=== PATIENT | female | born 1990 | race Caucasian/White ===

== ENCOUNTER 2017-02-21 19:10 | Emergency (ER) | payer MEDICAID ==
[2017-02-21] MEDS ORDERED: HYDROMORPHONE HCL INJ/PF 2 MG/ML AMPULE IM ONE (20:31)
--- NOTE | 2017-02-21 20:36 | ER Document Report ---
HPI - HPI Patient complains to provider of: Low back pain Onset: Other - Chronic, worse for the past week Onset/Duration: Worse Quality of pain: Achy Pain Level: 4 Context: Patient states she has a history of sarcoidosis with arthritic pain. Patient states that over the past week she has had a flareup of her low back pain that radiates to bilateral hips and into her legs. Patient denies any fever, urinary retention or incontinence. Patient states she did see her primary doctor and was told that there was some red blood cells in her urine although she did not have any signs concerning for infection. Patient states that typically with flareup such as that she will get a shot of the pain medication and a steroid medication and follow-up with her software testing specialist. Patient states that she has been advised not to take any additional steroids as she is currently on Acthar gel. Associated Symptoms: Other - Back pain that radiates to her legs. denies: Fever , Headache, Vomiting Exacerbated by: Movement Relieved by: Denies Similar symptoms previously: Yes Recently seen / treated by doctor: No - ROS ROS below otherwise negative: Yes Systems Reviewed and Negative: Yes All other systems reviewed and negative - CONSTITUTIONAL Constitutional: DENIES: Fever, Chills - NEURO Neurology: DENIES: Headache, Weakness - GASTROINTESTINAL Gastrointestinal: DENIES: Nausea, Patient vomiting - URINARY Urinary: DENIES: Dysuria, Urgency, Frequency - REPRODUCTIVE Reproductive: DENIES: : - MUSCULOSKELETAL Musculoskeletal: REPORTS: Back Pain. DENIES: Neck Pain - DERM Skin Color: Normal Skin Problems: None Past Medical History - General Information source: Patient - Social History Smoking Status: Current Every Day Smoker Chew tobacco use (# tins/day): No Frequency of alcohol use: None Drug Abuse: None Occupation: None Lives with: Family Family History: Arthritis, CAD, DM, Hyperlipidemia, Hypertension, Thyroid Disfunction Patient has suicidal ideation: No Patient has homicidal ideation: No - Medical History Medical History: Other - Sarcoidosis - Past Medical History Cardiac Medical History: Reports: Hx Hypertension Pulmonary Medical History: Neurological Medical History: Reports: Hx Migraine Renal/ Medical History: Reports: Hx Ovarian Cysts. Denies: Hx Peritoneal Dialysis GI Medical History: Denies: Hx Hepatitis Musculoskeltal Medical History: Reports Hx Fibromyalgia, Reports Hx Musculoskeletal Trauma Psychiatric Medical History: Reports: Hx Anxiety, Hx Depression Infectious Medical History: Denies: Hx Hepatitis Past Surgical History: Reports: Hx Appendectomy, Hx Section, Hx Cholecystectomy, Hx Orthopedic Surgery - right foot, Hx Tonsillectomy - Immunizations Immunizations up to date: Yes Hx Diphtheria, Pertussis, Tetanus Vaccination: Yes Vertical Provider Document - CONSTITUTIONAL Agree With Documented VS: Yes Exam Limitations: No Limitations General Appearance: WD/WN, No Apparent Distress - INFECTION CONTROL TRAVEL OUTSIDE OF THE [place] IN LAST 30 DAYS: No - HEENT HEENT: Atraumatic, Normocephalic - NECK Neck: Normal Inspection - RESPIRATORY Respiratory: Breath Sounds Normal, No Respiratory Distress O2 Sat by Pulse Oximetry: 98 - CARDIOVASCULAR Cardiovascular: Regular Rate, Regular Rhythm Notes: 2+ edema to bilateral lower extremities - GI/ABDOMEN Gastrointestinal: Abdomen Soft, Abdomen Non-Tender - BACK Back: CVA Tenderness-Right, CVA Tenderness-Left Notes: Lower lumbar paraspinal tenderness - MUSCULOSKELETAL/EXTREMETIES Musculoskeletal/Extremeties: ABUNDIO, FROM Notes: Normal gait - NEURO Level of Consciousness: Awake, Alert, Appropriate Motor/Sensory: No Motor Deficit, No Sensory Deficit - DERM Integumentary: Warm, Dry Course - Re-evaluation Re-evalutation: 02/21/17 21:58 Pt reports modest improvement of her back pain symptoms. Patient encouraged to follow-up with her primary doctor or her software testing specialist for chronic pain management. Discussed worsening symptoms that patient should return immediately for. Patient verbalized understanding in agrees with plan of care. Patient with all amount of red blood cells on urinalysis. Patient denies any urinary symptoms or complaints. Patient states that her primary doctor is aware that she had red blood cells on her urinalysis and they did send it for culture. Patient advised that she may need to follow-up with a photo booth operator for further evaluation but that her primary doctor could make that consultation for her. - Vital Signs Vital signs: Temp Pulse Resp BP Pulse Ox 98.8 F 107 H 18 105/83 98 02/21/17 19:59 02/21/17 19:59 02/21/17 19:59 02/21/17 19:59 02/21/17 19:59 Discharge - Discharge Clinical Impression: Hx of sarcoidosis Low back pain Qualifiers: Chronicity: chronic Back pain laterality: unspecified Sciatica presence: unspecified whether sciatica present Qualified Code(s): M54.5 - Low back pain Condition: Stable Disposition: HOME, SELF-CARE Instructions: Acetaminophen, Ice Packs ([facility]), Low Back Pain ([facility]), Oral Narcotic Medication ([facility]), Warm Packs ([facility]) Additional Instructions: Return immediately for any new or worsening symptoms Followup with your primary care provider, call tomorrow to make a followup appointment Follow-up with your software testing specialist tomorrow for recheck Prescriptions: Oxycodone HCl/Acetaminophen [Percocet 5-325 mg Tablet] 1 tab PO ASDIR PRN #12 tablet PRN Reason:
[2017-02-21 21:29] LABS: APPEARANCE,URINE CLEAR; BILIRUBIN,URINE NEGATIVE (NEGATIVE); GLUCOSE, URINE NEGATIVE (NEGATIVE); KETONES,URINE NEGATIVE (NEGATIVE); LEUKOCYTE ESTERASE,URINE NEGATIVE (NEGATIVE); NITRITE,URINE NEGATIVE (NEGATIVE); PROTEIN,URINE NEGATIVE (NEGATIVE); URINE SPECIFIC GRAVITY 1.012; UROBILINOGEN,URINE NEGATIVE mg/dL (<2.0)
[2017-02-21 22:24] VITALS: BP 131/87
== END 2017-02-21 22:22 | disposition home or self-care (01) ==
LOC: ER 19:10
DX: M54.5 Low back pain (principal); D86.9 Sarcoidosis, unspecified; I10 Essential (primary) hypertension; R60.0 Localized edema; F17.200 Nicotine dependence, unspecified, uncomplicated; Z79.899 Other long term (current) drug therapy
CPT/HCPCS: 99283; 96372; 87086; 81001; J1170

== ENCOUNTER 2017-02-25 15:58 | Emergency (ER) | payer MEDICAID ==
[2017-02-25] MEDS ORDERED: NORMAL SALINE 1000 ML 1,000 ML IV ONE (16:18)
[2017-02-25] MEDS ORDERED: KETOROLAC TROMETHAMINE INJ/PF 30 MG/1 ML SDV IV ONE (16:18)
--- NOTE | 2017-02-25 16:19 | ER Document Report ---
ED Medical Screen (RME) - General Chief Complaint: Urinary Problem Stated Complaint: PAINFUL URINATION Time Seen by Provider: 02/25/17 16:17 Mode of Arrival: Wheelchair Information source: Patient TRAVEL OUTSIDE OF THE [place] IN LAST 30 DAYS: No - HPI Patient complains to provider of: L flank pain/dysuria Onset: Other - Pt. with c/o L flank pain and dysuria for the past 1-2 days. - Related Data Allergies/Adverse Reactions: Neuromuscular Blockers, Steroidal [Steroidal Neuromuscular Blockers] Allergy ( Severe, Verified 02/21/17 19:58) esophageal/stomach ulcers latex [Latex] Allergy (Intermediate, Verified 02/21/17 19:58) redness/blisters Home Medications: Current Home Medications Asenapine Maleate [Saphris] 10 mg SL TID 02/25/17 [History] Prazosin HCl 4 mg PO QHS 02/25/17 [History] Propranolol HCl [Propranolol HCl ER] 120 mg PO DAILY 02/25/17 [History] Venlafaxine HCl [Effexor Xr] 175 mg PO DAILY 02/25/17 [History] Past Medical History - Past Medical History Cardiac Medical History: Reports: Hx Hypertension Pulmonary Medical History: Neurological Medical History: Reports: Hx Migraine Renal/ Medical History: Reports: Hx Ovarian Cysts. Denies: Hx Peritoneal Dialysis GI Medical History: Denies: Hx Hepatitis Musculoskeltal Medical History: Reports Hx Fibromyalgia, Reports Hx Musculoskeletal Trauma Psychiatric Medical History: Reports: Hx Anxiety, Hx Depression Infectious Medical History: Denies: Hx Hepatitis Past Surgical History: Reports: Hx Appendectomy, Hx Section, Hx Cholecystectomy, Hx Orthopedic Surgery - right foot, Hx Tonsillectomy - Immunizations Immunizations up to date: Yes Hx Diphtheria, Pertussis, Tetanus Vaccination: Yes
[2017-02-25 17:12] LABS: ABSOLUTE EOSINOPHILS # (AUTO) 0.3 10^3/uL (0.0-0.6); ABSOLUTE LYMPHOCYTES (AUTO) 2.7 10^3/uL (0.5-4.7); ABSOLUTE MONOCYTES (AUTO) 0.4 10^3/uL (0.1-1.4); ABSOLUTE NEUT (AUTO) 4.8 10^3/uL (1.7-8.2); BASOPHILS % (AUTO) 0.4 % (0-2); EOSINOPHILS % (AUTO) 3.8 % (0-6); HEMATOCRIT 34.9 % (36.0-47.0); HEMOGLOBIN 11.4 g/dL (12.0-15.5); HGB HCT DIFFERENCE -0.7; LYMPHOCYTES % (AUTO) 32.7 % (13-45); MEAN CORPUSCULAR HEMOGLOBIN 26.7 pg (27.0-33.4); MEAN CORPUSCULAR HGB CONC 32.6 g/dL (32.0-36.0); MEAN CORPUSCULAR VOLUME 82 fl (80-97); MONOCYTES % (AUTO) 4.7 % (3-13); RED BLOOD COUNT 4.26 10^6/uL (3.72-5.28); RED CELL DISTRIBUTION WIDTH 17.1 % (11.5-14.0); SEGMENTED NEUTROPHILS % (AUTO) 58.4 % (42-78); WHITE BLOOD COUNT 8.3 10^3/uL (4.0-10.5)
[2017-02-25 17:16] LABS: APPEARANCE,URINE CLEAR; BILIRUBIN,URINE NEGATIVE (NEGATIVE); GLUCOSE, URINE NEGATIVE (NEGATIVE); KETONES,URINE NEGATIVE (NEGATIVE); LEUKOCYTE ESTERASE,URINE NEGATIVE (NEGATIVE); NITRITE,URINE POSITIVE (NEGATIVE); PROTEIN,URINE 30 mg/dL (NEGATIVE)
[2017-02-25 17:26] LABS: ALANINE AMINOTRANSFERASE 60 U/L (9-52); ALBUMIN 3.7 g/dL (3.5-5.0); ALKALINE PHOSPHATASE 93 U/L (38-126); ANION GAP 12 (5-19); ASPARTATE AMINO TRANSFERASE 31 U/L (14-36); BILIRUBIN,DIRECT 0.2 mg/dL (0.0-0.4); BILIRUBIN,TOTAL 0.3 mg/dL (0.2-1.3); BLOOD UREA NITROGEN 21 mg/dL (7-20); CARBON DIOXIDE 27 mmol/L (22-30); CHLORIDE 103 mmol/L (98-107); CREATININE RESULT 0.68 mg/dL (0.52-1.25); GLUCOSE 91 mg/dL (75-110); POTASSIUM 4.3 mmol/L (3.6-5.0); SODIUM 141.6 mmol/L (137-145); TOTAL PROTEIN 6.3 g/dL (6.3-8.2)
--- NOTE | 2017-02-25 18:07 | RADIOLOGY REPORT (SQ) ---
EXAM DESCRIPTION: CT LTD RENAL STONE PROTOCOL ON COMPLETED DATE/TIME: 02/25/2017 5:43 pm REASON FOR STUDY: L flank pain COMPARISON: None. TECHNIQUE: CT scan of the abdomen and pelvis performed without intravenous or oral contrast. Images reviewed with lung, soft tissue, and bone windows. Reconstructed coronal and sagittal MPR images revi ewed. All images stored on PACS. All CT scanners at this facility use dose modulation, iterative reconstruction, and/or weight based d osing when appropriate to reduce radiation dose to as low as reasonably achievable (ALARA). [facility]: Dose Right [facility]: CareDose [facility]: Dose Right [facility]: Teradose 4D [facility]: [employer] RADIATION DOSE: Up-to-date CT equipment and radiation dose reduction techniques were employed. CTDIv ol: 21.3 mGy. DLP: 1233 mGy-cm.mGy. LIMITATIONS: None. FINDINGS: LOWER CHEST: No significant findings. No nodules or infiltrates. NON-CONTRASTED LIVER, SPLEEN, ADRENALS: Evaluation limited by lack of IV contrast. No identified sign ificant masses. PANCREAS: No masses. No peripancreatic inflammatory changes. GALLBLADDER: Status post cholecystectomy RIGHT KIDNEY AND URETER: No suspicious masses. Assessment limited by lack of IV contrast. No signif icant calcifications. No hydronephrosis or hydroureter. LEFT KIDNEY AND URETER: No suspicious masses. Assessment limited by lack of IV contrast. No signifi cant calcifications. No hydronephrosis or hydroureter. AORTA AND RETROPERITONEUM: No aneurysm. No retroperitoneal masses or adenopathy. BOWEL AND PERITONEAL CAVITY: Multiple prominent mesenteric lymph nodes are identified and the possibi lity of a mesenteric adenitis should be considered. Other etiologies cannot be excluded. APPENDIX: Status post appendectomy PELVIS, BLADDER, AND ABDOMINAL WALL:No abnormal masses. No free fluid. Bladder normal. BONES: No significant findings. OTHER: No other significant finding. IMPRESSION: Multiple prominent mesenteric lymph nodes are identified and the possibility of a mesent cristina adenitis should be considered. Other etiologies cannot be excluded. Other findings as noted ab ove COMMENT: Quality ID # [id number]: Final reports with documentation of one or more dose reduction techniques (e.g., Automated exposure control, adjustment of the mA and/or kV according to patient size, use of iterative reconstruction technique) TECHNICAL DOCUMENTATION: JOB ID: [id number]- All Rights Reserved
[2017-02-25] MEDS ORDERED: HYDROCODONE/ACETAMINOPHEN 5-325 MG TABLET PO ONE (18:21)
[2017-02-25] MEDS ORDERED: SULFAMETHOXAZOLE/TRIMETHOPRIM 800-160 MG TABLET PO ONE (18:21)
--- NOTE | 2017-02-25 18:21 | ER Document Report ---
ED GI/ - General Mode of Arrival: Wheelchair Information source: Patient TRAVEL OUTSIDE OF THE [place] IN LAST 30 DAYS: No <SKY BHAKTA - Last Filed: 02/25/17 19:12> <KWAME TOM - Last Filed: 02/25/17 19:25> - General Chief Complaint: Urinary Problem Stated Complaint: PAINFUL URINATION Time Seen by Provider: 02/25/17 16:17 Notes: Patient is a 27 year old female with a history of Sarcoidosis presents to the emergency department complaining of multiple symptoms including back, hip and leg pain as well as painful urination. Patient states that she was last seen in the emergency department 02/21/2017, complaining of her leg, back and hip pain and was sent home diagnosed with a flare of her Sarcoidosis. Patient states that she now has painful urination, left flank pain and LLQ abdominal pain. Patient states that she has had a fever of 101.2 as well as vomiting. Patient denies any any diarrhea, sore throat, runny nose, or earaches. (SKY BHAKTA) - Related Data Allergies/Adverse Reactions: Neuromuscular Blockers, Steroidal [Steroidal Neuromuscular Blockers] Allergy ( Severe, Verified 02/21/17 19:58) esophageal/stomach ulcers latex [Latex] Allergy (Intermediate, Verified 02/21/17 19:58) redness/blisters Home Medications: Current Home Medications Asenapine Maleate [Saphris] 10 mg SL TID 02/25/17 [History] Baclofen [Baclofen 20 Mg Tablet] 20 mg PO TID 02/25/17 [History] Budesonide [Pulmicort 180 mcg Flexhaler] 180 mcg IN BID 02/25/17 [History] Esomeprazole Magnesium [Nexium] 40 mg PO BID 02/25/17 [History] Methotrexate Sodium [Methotrexate] 2.5 mg PO ASDIR 02/25/17 [History] Prazosin HCl 4 mg PO QHS 02/25/17 [History] Propranolol HCl [Propranolol HCl ER] 120 mg PO DAILY 02/25/17 [History] Venlafaxine HCl [Effexor Xr] 175 mg PO DAILY 02/25/17 [History] Past Medical History - General Information source: Patient - Social History Smoking Status: Never Smoker Family History: Arthritis, CAD, DM, Hyperlipidemia, Hypertension, Thyroid Disfunction Patient has suicidal ideation: No Patient has homicidal ideation: No - Past Medical History Cardiac Medical History: Reports: Hx Hypertension Pulmonary Medical History: Neurological Medical History: Reports: Hx Migraine Renal/ Medical History: Reports: Hx Ovarian Cysts. Denies: Hx Peritoneal Dialysis GI Medical History: Denies: Hx Hepatitis Musculoskeltal Medical History: Reports Hx Fibromyalgia, Reports Hx Musculoskeletal Trauma Psychiatric Medical History: Reports: Hx Anxiety, Hx Depression Infectious Medical History: Denies: Hx Hepatitis Past Surgical History: Reports: Hx Appendectomy, Hx Section, Hx Cholecystectomy, Hx Orthopedic Surgery - right foot, Hx Tonsillectomy - Immunizations Immunizations up to date: Yes Hx Diphtheria, Pertussis, Tetanus Vaccination: Yes <SKY BHAKTA - Last Filed: 02/25/17 19:12> Physical Exam <SKY BHAKTA - Last Filed: 02/25/17 19:12> <KWAME TOM - Last Filed: 02/25/17 19:25> - Notes Notes: GENERAL: Alert, interacts well. No acute distress. HEAD: Normocephalic, atraumatic. EYES: Pupils equal, round, and reactive to light. Extraocular movements intact. ENT: Oral mucosa moist, tongue midline. NECK: Full range of motion. Supple. Trachea midline. LUNGS: Clear to auscultation bilaterally, no wheezes, rales, or rhonchi. No respiratory distress. HEART: Regular rate and rhythm. No murmurs, gallops, or rubs. ABDOMEN: Soft, Suprapubic area tender to palpation. Non-distended. Bowel sounds present in all 4 quadrants. Obese. EXTREMITIES: Moves all 4 extremities spontaneously. No edema, radial and dorsalis pedis pulses 2/4 bilaterally. No cyanosis. NEUROLOGICAL: Alert and oriented x3. Normal speech. PSYCH: Normal affect, normal mood. SKIN: Warm, dry, normal turgor. No rashes or lesions noted. BACK: Left sided CVA tenderness to percussion. (SKY BHAKTA) Course - Laboratory Result Diagrams: 02/25/17 16:45 02/25/17 16:45 <SKY BHAKTA - Last Filed: 02/25/17 19:12> - Laboratory Result Diagrams: 02/25/17 16:45 02/25/17 16:45 <KWAME TOM - Last Filed: 02/25/17 19:25> - Re-evaluation Re-evalutation: 02/25/17 18:26 CBC shows mild anemia with hemoglobin 11.4, CMP grossly unremarkable, test negative, urinalysis shows small blood, positive nitrites but only 3 WBCs and 8 RBCs, this may actually represent false positive from the Pyridium that the patient is taking however it will be sent for culture, patient also has left flank pain associated with left CVA tenderness to percussion and fever, this is suspicious for pyelonephritis. CAT scan did not reveal any signs of hydronephrosis, perinephric stranding or obstructing stone. Patient will be treated with Bactrim. CT scan is possibly indicative of mesenteric adenitis however I feel the enlarged lymph nodes in the setting of a patient with known sarcoidosis likely has sarcoid instead causing these enlarged lymph nodes. ( KWAME TOM) - Laboratory Laboratory results interpreted by me: 02/25/17 02/25/17 02/25/17 16:45 16:45 16:45 Hgb 11.4 L Hct 34.9 L MCH 26.7 L RDW 17.1 H BUN 21 H ALT 60 H Urine Protein 30 H Urine Blood SMALL H Urine Nitrite POSITIVE H Urine Urobilinogen 4.0 H Discharge <SKY BHAKTA - Last Filed: 02/25/17 19:12> <KWAME TOM - Last Filed: 02/25/17 19:25> - Discharge Clinical Impression: Pyelonephritis, Hx of sarcoidosis Condition: Stable Disposition: HOME, SELF-CARE Additional Instructions: Pyelonephritis Your evaluation shows evidence of pyelonephritis. This is an infection in the kidney. Typical symptoms are fever, pain in the flank, pain on urination, and frequent urination. Many cases of pyelonephritis can be treated at home. Hospital care may be necessary for patients who are very ill, or elderly or . Pyelonephritis is treated with antibiotics. Be sure to take all the medication as prescribed. Drink plenty of liquids (about three quarts per day) . You may take acetaminophen for fever. You should feel significantly improved within two days. You should have a recheck of your urine in about one week to insure that the infection is gone. Return for a re-examination if your symptoms worsen in any way -- such as high fever, shaking chills, severe weakness or dizziness, severe pain, or inability to pass your urine. Prescriptions: Sulfamethoxazole/Trimethoprim [Bactrim Ds Tablet] 1 each PO BID #14 tablet Referrals: JOSELITO FLORIAN MD [ACTIVE STAFF] - Follow up as needed Scribe Attestation: 02/25/17 19:25 I personally performed the services described in the documentation, reviewed and edited the documentation which was dictated to the scribe in my presence, and it accurately records my words and actions. (KWAME TOM)
[2017-02-25 20:08] VITALS: BP 147/107
== END 2017-02-25 19:55 | disposition home or self-care (01) ==
LOC: ER 15:58
DX: N12 Tubulo-interstitial nephritis, not specified as acute or chronic (principal); D86.9 Sarcoidosis, unspecified; R50.9 Fever, unspecified; R11.10 Vomiting, unspecified; I10 Essential (primary) hypertension; Z91.040 Latex allergy status; Z90.49 Acquired absence of other specified parts of digestive tract
CPT/HCPCS: 99284; 96361; 96374; 36415; 87086; 85025; 81025; 80053; 81001; 76380; J1885; J3490; J7030

== ENCOUNTER 2017-04-06 19:02 | Emergency (ER) | payer MEDICAID ==
[2017-04-06] MEDS ORDERED: HYDROXYZINE PAMOATE 50 MG CAPSULE PO ONE (20:25)
[2017-04-06] MEDS ORDERED: MORPHINE SULFATE 10 MG/ML INJ IM ONE (21:04)
[2017-04-06] MEDS ORDERED: METHYLPREDNISOLONE ACETATE INJ 80 MG/1 ML VIAL IM PRN (21:04)
[2017-04-06] MEDS ORDERED: ONDANSETRON 4 MG TAB.RAPDIS PO ONE (21:04)
--- NOTE | 2017-04-06 21:08 | ER Document Report ---
ED General Pain - General Chief Complaint: Pain All Over Stated Complaint: BODY PAIN Time Seen by Provider: 04/06/17 21:04 Mode of Arrival: Ambulatory Information source: Patient Notes: 27 years old female with a history of sarcoidosis, has not been taking any medication in the recent past, presents with generalized body aches and pain and minor rash over the face and lower extremity. Recently she was treated for pneumonia, currently feeling better, has no cough shortness of breath or wheezing. Denies any fever chills or other constitutional symptoms. TRAVEL OUTSIDE OF THE [place] IN LAST 30 DAYS: No - Related Data Allergies/Adverse Reactions: Neuromuscular Blockers, Steroidal [Steroidal Neuromuscular Blockers] Allergy ( Severe, Verified 02/21/17 19:58) esophageal/stomach ulcers latex [Latex] Allergy (Intermediate, Verified 02/21/17 19:58) redness/blisters Past Medical History - General Information source: Patient - Social History Smoking Status: Unknown if Ever Smoked Family History: Arthritis, CAD, DM, Hyperlipidemia, Hypertension, Thyroid Disfunction, Other - Sarcoidosis Patient has suicidal ideation: No Patient has homicidal ideation: No - Past Medical History Cardiac Medical History: Reports: Hx Hypertension Pulmonary Medical History: Neurological Medical History: Reports: Hx Migraine Renal/ Medical History: Reports: Hx Ovarian Cysts. Denies: Hx Peritoneal Dialysis GI Medical History: Denies: Hx Hepatitis Musculoskeltal Medical History: Reports Hx Fibromyalgia, Reports Hx Musculoskeletal Trauma Psychiatric Medical History: Reports: Hx Anxiety, Hx Depression Infectious Medical History: Denies: Hx Hepatitis Past Surgical History: Reports: Hx Appendectomy, Hx Section, Hx Cholecystectomy, Hx Orthopedic Surgery - right foot, Hx Tonsillectomy - Immunizations Immunizations up to date: Yes Hx Diphtheria, Pertussis, Tetanus Vaccination: Yes Review of Systems - Review of Systems Notes: REVIEW OF SYSTEMS: CONSTITUTIONAL : Denies fever, chills, or sweats. Denies recent illness. EENT: Denies eye, ear, throat, or mouth pain or symptoms. Denies nasal or sinus congestion or discharge. Denies throat, tongue, or mouth swelling or difficulty swallowing. CARDIOVASCULAR: Denies chest pain. Denies palpitations or racing or irregular heart beat. Denies ankle edema. RESPIRATORY: Denies cough, cold, or chest congestion. Denies shortness of breath, difficulty breathing, or wheezing. GASTROINTESTINAL: Denies abdominal pain or distention. Denies nausea, vomiting , or diarrhea. Denies blood in vomitus, stools, or per rectum. Denies black, tarry stools. Denies constipation. GENITOURINARY: Denies difficulty urinating, painful urination, burning, frequency, blood in urine, or discharge. FEMALE GENITOURINARY: Denies vaginal bleeding, heavy or abnormal periods, irregular periods. Denies vaginal discharge or odor. MUSCULOSKELETAL: As per history of complaint, denies any joint swellings SKIN: Denies rash, lesions or sores. HEMATOLOGIC : Denies easy bruising or bleeding. LYMPHATIC: Denies swollen, enlarged glands. NEUROLOGICAL: Denies confusion or altered mental status. Denies passing out or loss of consciousness. Denies dizziness or lightheadedness. Denies headache. Denies weakness or paralysis or loss of use of either side. Denies problems with gait or speech. Denies sensory loss, numbness, or tingling. Denies seizures. PSYCHIATRIC: Denies anxiety or stress. Denies depression, suicidal ideation, or homicidal ideation. ALL OTHER SYSTEMS REVIEWED AND NEGATIVE. PHYSICAL EXAMINATION: GENERAL: Well-appearing, well-nourished , morbidly obese and mild to moderate discomfort HEAD: Atraumatic, normocephalic. EYES: Pupils equal round and reactive to light, extraocular movements intact, conjunctiva are normal. ENT: Nares patent, oropharynx clear without exudates. Moist mucous membranes. NECK: Normal range of motion, supple without lymphadenopathy LUNGS: Breath sounds clear to auscultation bilaterally and equal. No wheezes rales or rhonchi. HEART: Regular rate and rhythm without murmurs ABDOMEN: Soft, nontender, nondistended abdomen. No guarding, no rebound. No masses appreciated. Female : deferred Musculoskeletal: Normal range of motion, no pitting or edema. No cyanosis. NEUROLOGICAL: Cranial nerves grossly intact. Normal speech, normal gait. Normal sensory, motor exams PSYCH: Normal mood, normal affect. SKIN: Papular erythematous rash was noted around the face as well as in the lower extremity and some in the upper extremity. Dictation was performed using [employer] recognition software Physical Exam - Vital signs Vitals: Temp Pulse Resp BP Pulse Ox 98.1 F 118 H 20 156/138 H 96 04/06/17 19:10 04/06/17 19:10 04/06/17 19:10 04/06/17 19:10 04/06/17 19:10 Course - Re-evaluation Re-evalutation: 04/06/17 21:35 Given Depo-Medrol and morphine 04/06/17 22:01 Labs reviewed with her - Vital Signs Vital signs: Temp Pulse Resp BP Pulse Ox 98.1 F 106 H 18 115/87 H 98 04/06/17 19:10 04/06/17 20:10 04/06/17 20:10 04/06/17 20:10 04/06/17 20:10 - Laboratory Result Diagrams: 04/06/17 20:45 04/06/17 20:45 Laboratory results interpreted by me: 04/06/17 04/06/17 20:45 20:45 Hgb 10.8 L Hct 33.9 L MCH 25.9 L MCHC 31.8 L RDW 16.2 H BUN 5 L AST 54 H ALT 92 H Discharge - Discharge Clinical Impression: Sarcoidosis of other sites Arthralgia Qualifiers: Laterality: bilateral Condition: Fair Disposition: HOME, SELF-CARE Instructions: Arthralgia ([facility]) Prescriptions: Hydrocodone/Acetaminophen [[place] 5-325 mg Tablet] 1 tab PO BID PRN #10 tablet PRN Reason: Methylprednisolone [Medrol] 4 mg PO ASDIR PRN #1 tab.ds.pk PRN Reason:
[2017-04-06 21:09] LABS: ABSOLUTE EOSINOPHILS # (AUTO) 0.3 10^3/uL (0.0-0.6); ABSOLUTE LYMPHOCYTES (AUTO) 2.6 10^3/uL (0.5-4.7); ABSOLUTE MONOCYTES (AUTO) 0.6 10^3/uL (0.1-1.4); ABSOLUTE NEUT (AUTO) 6.6 10^3/uL (1.7-8.2); BASOPHILS % (AUTO) 0.3 % (0-2); EOSINOPHILS % (AUTO) 3.1 % (0-6); HEMATOCRIT 33.9 % (36.0-47.0); HEMOGLOBIN 10.8 g/dL (12.0-15.5); LYMPHOCYTES % (AUTO) 25.9 % (13-45); MEAN CORPUSCULAR HEMOGLOBIN 25.9 pg (27.0-33.4); MEAN CORPUSCULAR HGB CONC 31.8 g/dL (32.0-36.0); MEAN CORPUSCULAR VOLUME 82 fl (80-97); MONOCYTES % (AUTO) 6.3 % (3-13); PLATELET COUNT 366 10^3/uL (150-450); RED BLOOD COUNT 4.16 10^6/uL (3.72-5.28); RED CELL DISTRIBUTION WIDTH 16.2 % (11.5-14.0); SEGMENTED NEUTROPHILS % (AUTO) 64.4 % (42-78); TOTAL CELLS COUNTED % (AUTO) 100 %; WHITE BLOOD COUNT 10.2 10^3/uL (4.0-10.5)
[2017-04-06 21:27] LABS: ALANINE AMINOTRANSFERASE 92 U/L (9-52); ALBUMIN 3.6 g/dL (3.5-5.0); ALKALINE PHOSPHATASE 100 U/L (38-126); ANION GAP 9 (5-19); ASPARTATE AMINO TRANSFERASE 54 U/L (14-36); BILIRUBIN,DIRECT 0.2 mg/dL (0.0-0.4); BILIRUBIN,TOTAL 0.2 mg/dL (0.2-1.3); BLOOD UREA NITROGEN 5 mg/dL (7-20); CALCIUM 9.8 mg/dL (8.4-10.2); CARBON DIOXIDE 29 mmol/L (22-30); CHLORIDE 101 mmol/L (98-107); GLUCOSE 102 mg/dL (75-110); POTASSIUM 3.9 mmol/L (3.6-5.0); SODIUM 138.6 mmol/L (137-145); TOTAL PROTEIN 6.5 g/dL (6.3-8.2)
[2017-04-06 21:53] LABS: APPEARANCE,URINE SLIGHTLY-CLOUDY; BILIRUBIN,URINE NEGATIVE (NEGATIVE); COLOR,URINE YELLOW; GLUCOSE, URINE NEGATIVE (NEGATIVE); KETONES,URINE NEGATIVE (NEGATIVE); LEUKOCYTE ESTERASE,URINE NEGATIVE (NEGATIVE); NITRITE,URINE NEGATIVE (NEGATIVE); PROTEIN,URINE NEGATIVE (NEGATIVE); UROBILINOGEN,URINE NEGATIVE mg/dL (<2.0)
[2017-04-06 23:10] VITALS: BP 124/67
== END 2017-04-06 22:20 | disposition home or self-care (01) ==
LOC: ER 19:02
DX: D86.9 Sarcoidosis, unspecified (principal); R21 Rash and other nonspecific skin eruption; M25.50 Pain in unspecified joint; I10 Essential (primary) hypertension; Z88.8 Allergy status to other drugs, medicaments and biological substances; Z91.040 Latex allergy status
CPT/HCPCS: 99283; 96372; 36415; 85025; 81025; 80053; 81001; S0119; J3490; J1040; J2270

== ENCOUNTER 2017-06-25 19:53 | Emergency (ER) | payer MEDICAID ==
--- NOTE | 2017-06-25 22:00 | ER Document Report ---
ED Medical Screen (RME) - General Chief Complaint: Pain All Over Stated Complaint: BODY PAIN, SWELLING Time Seen by Provider: 06/25/17 20:37 Mode of Arrival: Ambulatory Information source: Patient TRAVEL OUTSIDE OF THE [place] IN LAST 30 DAYS: No - HPI Patient complains to provider of: Pain all over, chest pain, thinks her sarcoidosis is acting up. Notes: 06/25/17 21:59 Patient is here with multiple complaints including chest pain, body pain, hand swelling. She has a history of sarcoidosis. She is currently on her second round of antibiotics for what she tells me is pneumonia. She tells me she was admitted the [facility] last month for pneumonia and that her primary doctor thinks her pneumonia has returned so she is currently on Augmentin as well as oral and inhaled steroids. She complains of some chest pain. She is in no distress at this time. An initial examination was made on the patient as part of the triage process, and it was determined a more comprehensive evaluation was necessary. Initial labs were ordered and patient was transferred to another provider in the ED who assumed care and finished evaluation and plan. - Related Data Allergies/Adverse Reactions: Neuromuscular Blockers, Steroidal [Steroidal Neuromuscular Blockers] Allergy ( Severe, Verified 02/21/17 19:58) esophageal/stomach ulcers latex [Latex] Allergy (Intermediate, Verified 02/21/17 19:58) redness/blisters Past Medical History - Past Medical History Cardiac Medical History: Reports: Hx Hypertension Pulmonary Medical History: Neurological Medical History: Reports: Hx Migraine Renal/ Medical History: Reports: Hx Ovarian Cysts. Denies: Hx Peritoneal Dialysis GI Medical History: Denies: Hx Hepatitis Musculoskeltal Medical History: Reports Hx Fibromyalgia, Reports Hx Musculoskeletal Trauma Psychiatric Medical History: Reports: Hx Anxiety, Hx Depression Infectious Medical History: Denies: Hx Hepatitis Past Surgical History: Reports: Hx Appendectomy, Hx Section, Hx Cholecystectomy, Hx Orthopedic Surgery - right foot, Hx Tonsillectomy - Immunizations Immunizations up to date: Yes Hx Diphtheria, Pertussis, Tetanus Vaccination: Yes Physical Exam - Vital signs Vitals: Temp Pulse Resp BP Pulse Ox 98.3 F 102 H 18 138/112 H 95 06/25/17 20:12 06/25/17 20:12 06/25/17 20:12 06/25/17 20:12 06/25/17 20:12 Course - Vital Signs Vital signs: Temp Pulse Resp BP Pulse Ox 98.3 F 102 H 18 138/112 H 95 06/25/17 20:12 06/25/17 20:12 06/25/17 20:12 06/25/17 20:12 06/25/17 20:12
--- NOTE | 2017-06-25 22:56 | RADIOLOGY REPORT (SQ) ---
EXAM DESCRIPTION: CHEST PA/LAT COMPLETED DATE/TIME: 06/25/2017 10:43 pm REASON FOR STUDY: CHEST PAIN COMPARISON: 10/30/2015 EXAM PARAMETERS: NUMBER OF VIEWS: two views TECHNIQUE: Digital Frontal and Lateral radiographic views of the chest acquired. RADIATION DOSE: NA LIMITATIONS: none FINDINGS: LUNGS AND PLEURA: No acute opacities, masses or pneumothorax. No pleural effusion. MEDIASTINUM AND HILAR STRUCTURES: No masses or contour abnormalities. HEART AND VASCULAR STRUCTURES: Heart normal size. No evidence for failure. BONES: No acute findings. HARDWARE: None in the chest. OTHER: No other significant finding. IMPRESSION: No acute findings. TECHNICAL DOCUMENTATION: JOB ID: [id number] [id number] [employer]- All Rights Reserved Reading location - IP/workstation name: [email or web address]
[2017-06-25] MEDS ORDERED: HYDROMORPHONE HCL INJ/PF 2 MG/ML AMPULE IM ONE (23:03)
[2017-06-25] MEDS ORDERED: IPRATROPIUM/ALBUTEROL 0.5-2.5 MG/3 ML AMPUL NEB ONE (23:03)
[2017-06-25 23:07] LABS: ABSOLUTE BASOPHILS # (AUTO) 0.1 10^3/uL (0.0-0.2); ABSOLUTE EOSINOPHILS # (AUTO) 0.2 10^3/uL (0.0-0.6); ABSOLUTE LYMPHOCYTES (AUTO) 4.1 10^3/uL (0.5-4.7); ABSOLUTE NEUT (AUTO) 12.9 10^3/uL (1.7-8.2); BASOPHILS % (AUTO) 0.5 % (0-2); HEMATOCRIT 38.5 % (36.0-47.0); HEMOGLOBIN 12.2 g/dL (12.0-15.5); LYMPHOCYTES % (AUTO) 22.5 % (13-45); MEAN CORPUSCULAR HGB CONC 31.8 g/dL (32.0-36.0); MEAN CORPUSCULAR VOLUME 79 fl (80-97); MONOCYTES % (AUTO) 5.6 % (3-13); PLATELET COUNT 588 10^3/uL (150-450); RED CELL DISTRIBUTION WIDTH 19.4 % (11.5-14.0); SEGMENTED NEUTROPHILS % (AUTO) 70.4 % (42-78); TOTAL CELLS COUNTED % (AUTO) 100 %; WHITE BLOOD COUNT 18.4 10^3/uL (4.0-10.5)
--- NOTE | 2017-06-25 23:09 | ER Document Report ---
ED General - General Chief Complaint: Pain All Over Stated Complaint: BODY PAIN, SWELLING Time Seen by Provider: 06/25/17 20:37 Mode of Arrival: Ambulatory Information source: Patient Notes: 27-year-old female with a history of sarcoid, gastroparesis presents with complaint of myalgias, chest pain. Patient states pain started 2 days prior to arrival. She describes it as constant, aching and not relieved with steroids. She states this is typical of her sarcoid flares. She states her last flare was 2 months prior to arrival. She does state that she has been recently treated for pneumonia and is currently taking prednisone and Augmentin. She denies any fever, chills, vomiting, abdominal pain. He does have a chronic cough and chronic shortness of breath and chronic chest pain as well as chronic tachycardia. She states that she was told she needs a CPAP machine. Patient does not currently have a teacher emotionally impaired. 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 She is on inhaled corticosteroids. TRAVEL OUTSIDE OF THE [place] IN LAST 30 DAYS: No - HPI Onset: Yesterday Onset/Duration: Gradual Quality of pain: Achy, Throbbing Severity: Mild Pain Level: 1 Associated symptoms: Chest pain - Chronic, Nonproductive cough - Chronic, Shortness of breath - Chronic. denies: Fever Exacerbated by: Denies Relieved by: Denies Similar symptoms previously: Yes - 2 months prior to arrival Recently seen / treated by doctor: No - Related Data Allergies/Adverse Reactions: Neuromuscular Blockers, Steroidal [Steroidal Neuromuscular Blockers] Allergy ( Severe, Verified 02/21/17 19:58) esophageal/stomach ulcers latex [Latex] Allergy (Intermediate, Verified 02/21/17 19:58) redness/blisters Past Medical History - General Information source: Patient - Social History Smoking Status: Current Every Day Smoker Chew tobacco use (# tins/day): No Frequency of alcohol use: None Drug Abuse: None Lives with: Alone Family History: Arthritis, CAD, DM, Hyperlipidemia, Hypertension, Thyroid Disfunction, Other - Sarcoidosis Patient has suicidal ideation: No Patient has homicidal ideation: No - Past Medical History Cardiac Medical History: Reports: Hx Hypertension Pulmonary Medical History: Neurological Medical History: Reports: Hx Migraine Renal/ Medical History: Reports: Hx Ovarian Cysts. Denies: Hx Peritoneal Dialysis GI Medical History: Denies: Hx Hepatitis Musculoskeltal Medical History: Reports Hx Fibromyalgia, Reports Hx Musculoskeletal Trauma, Reports Other - Sarcoid Psychiatric Medical History: Reports: Hx Anxiety, Hx Depression Infectious Medical History: Denies: Hx Hepatitis Past Surgical History: Reports: Hx Appendectomy, Hx Section, Hx Cholecystectomy, Hx Orthopedic Surgery - right foot, Hx Tonsillectomy - Immunizations Immunizations up to date: Yes Hx Diphtheria, Pertussis, Tetanus Vaccination: Yes Review of Systems - Review of Systems Constitutional: See HPI. denies: Fever, Weakness EENT: See HPI Cardiovascular: See HPI, Chest pain - chronic. denies: Palpitations, Syncope, Dizziness Respiratory: Short of breath - chronic Gastrointestinal: denies: Nausea, Vomiting Musculoskeletal: Back pain - Chronic, Muscle pain, Muscle stiffness Physical Exam - Vital signs Vitals: Temp Pulse Resp BP Pulse Ox 98.3 F 102 H 18 138/112 H 95 06/25/17 20:12 06/25/17 20:12 06/25/17 20:12 06/25/17 20:12 06/25/17 20:12 - Respiratory Respiratory status: No respiratory distress. No: Respiratory distress, Depressed respirations Chest status: Nontender Breath sounds: Decreased air movement. No: Wheezing Chest palpation: Normal - Cardiovascular Rhythm: Regular, Tachycardia Heart sounds: Normal auscultation Murmur: No Pulses: Normal: Radial, Dorsalis pedis Normal capillary refill: Yes - Abdominal Inspection: Normal Distension: No distension Bowel sounds: Normal Tenderness: Nontender Organomegaly: No organomegaly - Extremities General upper extremity: Normal inspection, Nontender, Normal color, Normal ROM , Normal temperature. No: Edema General lower extremity: Normal inspection, Nontender, Normal color, Normal ROM , Normal temperature, Normal weight bearing. No: Edema, Haley's sign - Neurological Neuro grossly intact: Yes Cognition: Normal Orientation: AAOx4 [place] Coma Scale Eye Opening: Spontaneous [place] Coma Scale Verbal: Oriented Ish Coma Scale Motor: Obeys Commands Ish Coma Scale Total: 15 Speech: Normal Motor strength normal: LUE, RUE, LLE, RLE Sensory: Normal Course - Re-evaluation Re-evalutation: 06/27/17 01:45 27-year-old female with a history of sarcoid, gastroparesis presents with complaint of myalgias, chest pain. Patient states pain started 2 days prior to arrival. She describes it as constant, aching and not relieved with steroids. She states this is typical of her sarcoid flares. She states her last flare was 2 months prior to arrival. Upon arrival vital signs stable. Patient does not appear toxic or dehydrated. She is in no acute distress. Patient received IM Dilaudid and reported a relief of pain prior to discharge home. CBC does show leukocytosis but this is likely secondary to chronic steroid use. CMP shows no electrolyte abnormalities, normal kidney function. Urinalysis shows no evidence of infection. Laboratory 06/25/17 06/25/17 06/25/17 21:50 22:40 22:40 WBC 18.4 H RBC 4.90 Hgb 12.2 Hct 38.5 MCV 79 L MCH 25.0 L MCHC 31.8 L RDW 19.4 H Plt Count 588 H Seg Neutrophils % 70.4 Lymphocytes % 22.5 Monocytes % 5.6 Eosinophils % 1.0 Basophils % 0.5 Absolute Neutrophils 12.9 H Absolute Lymphocytes 4.1 Absolute Monocytes 1.0 Absolute Eosinophils 0.2 Absolute Basophils 0.1 Sodium 139.7 Potassium 4.4 Chloride 101 Carbon Dioxide 28 Anion Gap 11 BUN 12 Creatinine 0.73 Est GFR ( Amer) > 60 Est GFR (Non-Af Amer) > 60 Glucose 88 Calcium 10.1 Total Bilirubin 0.2 Direct Bilirubin 0.2 Neonat Total Bilirubin Not Reportable Neonat Direct Bilirubin Not Reportable Neonat Indirect Bili Not Reportable AST 34 ALT 68 H Alkaline Phosphatase 100 Total Protein 7.0 Albumin 4.2 Urine Color YELLOW Urine Appearance TURBID Urine pH 7.0 Ur Specific [place] 1.014 Urine Protein NEGATIVE Urine Glucose (UA) NEGATIVE Urine Ketones NEGATIVE Urine Blood NEGATIVE Urine Nitrite NEGATIVE Urine Bilirubin NEGATIVE Urine Urobilinogen NEGATIVE Ur Leukocyte Esterase NEGATIVE Urine RBC (Auto) 1 Squamous Epi Cells Auto 4 Amorphous Sediment Auto TRACE Urine Mucus (Auto) RARE Urine Ascorbic Acid NEGATIVE - Vital Signs Vital signs: Temp Pulse Resp BP Pulse Ox 98.3 F 92 20 138/99 H 98 06/25/17 20:12 06/26/17 01:26 06/26/17 01:26 06/26/17 01:26 06/26/17 01:26 - Laboratory Result Diagrams: 06/25/17 22:40 06/25/17 22:40 Laboratory results interpreted by me: 03/19/18 03/19/18 22:40 22:40 WBC 18.4 H MCV 79 L MCH 25.0 L MCHC 31.8 L RDW 19.4 H Plt Count 588 H Absolute Neutrophils 12.9 H ALT 68 H Discharge - Discharge Clinical Impression: Myalgia, Sarcoid Condition: Good Disposition: HOME, SELF-CARE Instructions: Chronic Pain Control ([facility]) Prescriptions: Hydrocodone/Acetaminophen [[place] 5-325 mg Tablet] 1 tab PO Q6H #10 tablet
[2017-06-25 23:24] LABS: AMORPHOUS SEDIMENT,URINE TRACE /HPF; APPEARANCE,URINE TURBID; BILIRUBIN,URINE NEGATIVE (NEGATIVE); COLOR,URINE YELLOW; GLUCOSE, URINE NEGATIVE (NEGATIVE); KETONES,URINE NEGATIVE (NEGATIVE); LEUKOCYTE ESTERASE,URINE NEGATIVE (NEGATIVE); NITRITE,URINE NEGATIVE (NEGATIVE); PROTEIN,URINE NEGATIVE (NEGATIVE); URINE SPECIFIC GRAVITY 1.014; UROBILINOGEN,URINE NEGATIVE mg/dL (<2.0)
[2017-06-25 23:29] LABS: ALANINE AMINOTRANSFERASE 68 U/L (9-52); ALBUMIN 4.2 g/dL (3.5-5.0); ALKALINE PHOSPHATASE 100 U/L (38-126); ANION GAP 11 (5-19); ASPARTATE AMINO TRANSFERASE 34 U/L (14-36); BILIRUBIN,DIRECT 0.2 mg/dL (0.0-0.4); BILIRUBIN,TOTAL 0.2 mg/dL (0.2-1.3); BLOOD UREA NITROGEN 12 mg/dL (7-20); CALCIUM 10.1 mg/dL (8.4-10.2); CARBON DIOXIDE 28 mmol/L (22-30); CHLORIDE 101 mmol/L (98-107); GLUCOSE 88 mg/dL (75-110); POTASSIUM 4.4 mmol/L (3.6-5.0); SODIUM 139.7 mmol/L (137-145)
--- NOTE | 2017-06-25 23:53 | EKG REPORT ---
SEVERITY:- NORMAL ECG - SINUS RHYTHM : Confirmed by: Hanny Rich 25-Jun-2017 23:52:57
[2017-06-26] MEDS ORDERED: HYDROMORPHONE HCL INJ/PF 2 MG/ML AMPULE IM ONE (01:02)
[2017-06-26 01:27] VITALS: BP 138/99
== END 2017-06-26 01:26 | disposition home or self-care (01) ==
LOC: ER 19:53
DX: D86.9 Sarcoidosis, unspecified (principal); M79.1 Myalgia; R07.9 Chest pain, unspecified; R05 Cough; I10 Essential (primary) hypertension; Z79.2 Long term (current) use of antibiotics; Z79.52 Long term (current) use of systemic steroids; F17.200 Nicotine dependence, unspecified, uncomplicated
CPT/HCPCS: 99284; 36415; 85025; 80053; 81001; 71046; 93005; 93010; J1170 ×2; J7620

== ENCOUNTER 2017-06-30 15:37 | Emergency (ER) | payer MEDICAID ==
[2017-06-30] MEDS ORDERED: KETOROLAC TROMETHAMINE INJ/PF 30 MG/1 ML SDV IV ONE (16:36)
[2017-06-30] MEDS ORDERED: NORMAL SALINE 1000 ML 1,000 ML IV ONE (16:36)
[2017-06-30] MEDS ORDERED: ONDANSETRON HCL INJ/PF 4 MG/2 ML SDV IV ONE (16:36)
--- NOTE | 2017-06-30 16:36 | ER Document Report ---
ED Medical Screen (RME) - General TRAVEL OUTSIDE OF THE [place] IN LAST 30 DAYS: No - HPI Patient complains to provider of: Right abdominal and back pain Onset: This morning Associated Symptoms: Other - see notes above <CHERYL HAYWOOD - Last Filed: 06/30/17 17:43> <KWAME TOM - Last Filed: 06/30/17 19:33> - General Chief Complaint: Flank Pain Stated Complaint: BACK PAIN, VOMITING Time Seen by Provider: 06/30/17 16:30 Notes: 27-year-old female with history of UTI, sarcoidosis, and kidney stones presents to the ED complaining of urinary urgency and lower right abdominal pain that started at 0530 this morning. Patient reports that the pain progressed to her right lower back and radiated down her right leg to her toes. Patient explains that this is unlike her past UTIs stating that the pain is worse. Patient is additionally complaining of nausea and vomiting, but denies fever. Patient took a [place], Zofran, and Azo to no relief. (CHERYL HAYWOOD) - Related Data Allergies/Adverse Reactions: Neuromuscular Blockers, Steroidal [Steroidal Neuromuscular Blockers] Allergy ( Severe, Verified 06/30/17 15:38) esophageal/stomach ulcers latex [Latex] Allergy (Intermediate, Verified 06/30/17 15:38) redness/blisters Past Medical History - General Information source: Patient - Past Medical History Cardiac Medical History: Reports: Hx Hypertension Pulmonary Medical History: Neurological Medical History: Reports: Hx Migraine Renal/ Medical History: Reports: Hx Ovarian Cysts. Denies: Hx Peritoneal Dialysis GI Medical History: Denies: Hx Hepatitis Musculoskeltal Medical History: Reports Hx Fibromyalgia, Reports Hx Musculoskeletal Trauma Psychiatric Medical History: Reports: Hx Anxiety, Hx Depression Infectious Medical History: Denies: Hx Hepatitis Past Surgical History: Reports: Hx Appendectomy, Hx Section, Hx Cholecystectomy, Hx Orthopedic Surgery - right foot, Hx Tonsillectomy - Immunizations Immunizations up to date: Yes Hx Diphtheria, Pertussis, Tetanus Vaccination: Yes <CHERYL HAYWOOD - Last Filed: 06/30/17 17:43> Review of Systems - Review of Systems Constitutional: No symptoms reported EENT: No symptoms reported Cardiovascular: No symptoms reported Respiratory: No symptoms reported Gastrointestinal: See HPI, Abdominal pain - right lower abdomen, Nausea, Vomiting Genitourinary: No symptoms reported Female Genitourinary: No symptoms reported Musculoskeletal: See HPI, Back pain - right lower that radiates down right leg Skin: No symptoms reported Hematologic/Lymphatic: No symptoms reported Neurological/Psychological: No symptoms reported -: Yes All other systems reviewed and negative <CHERYL HAYWOOD - Last Filed: 06/30/17 17:43> Physical Exam - General General appearance: Alert - Back Back: CVA tenderness - Right CVA tenderness to percussion and palpation, Other - No rashes noted. No: Normal <CHERYL HAYWOOD - Last Filed: 06/30/17 17:43> - Vital signs Vitals: Temp Pulse Resp BP Pulse Ox 98.1 F 101 H 16 138/104 H 99 06/30/17 15:44 06/30/17 15:44 06/30/17 15:44 06/30/17 15:44 06/30/17 15:44 Course - Laboratory Result Diagrams: 06/30/17 18:12 06/30/17 18:12 <KWAME TOM - Last Filed: 06/30/17 19:33> - Vital Signs Vital signs: Temp Pulse Resp BP Pulse Ox 98.1 F 101 H 16 138/104 H 99 06/30/17 15:44 06/30/17 15:44 06/30/17 15:44 06/30/17 15:44 06/30/17 15:44 - Laboratory Laboratory results interpreted by me: 06/30/17 06/30/17 06/30/17 17:12 18:12 18:12 WBC 22.9 H MCV 78 L MCH 24.4 L MCHC 31.2 L RDW 19.1 H Plt Count 460 H Seg Neuts % (Manual) 80 H Band Neutrophils % 1 L Abs Neuts (Manual) 18.5 H Calcium 10.5 H Urine Protein 30 H Urine Blood LARGE H Urine Nitrite POSITIVE H Urine Urobilinogen 4.0 H Scribe Documentation - Scribe Written by Emely:: Emely Cali, 06/30/2017 1803 acting as scribe for :: Johnathon <CHERYL HAYWOOD - Last Filed: 06/30/17 17:43>
[2017-06-30 17:29] LABS: APPEARANCE,URINE CLEAR; BILIRUBIN,URINE NEGATIVE (NEGATIVE); GLUCOSE, URINE NEGATIVE (NEGATIVE); KETONES,URINE NEGATIVE (NEGATIVE); LEUKOCYTE ESTERASE,URINE NEGATIVE (NEGATIVE); NITRITE,URINE POSITIVE (NEGATIVE); PROTEIN,URINE 30 mg/dL (NEGATIVE); URINE SPECIFIC GRAVITY 1.027
[2017-06-30 17:32] LABS: COLOR,URINE YELLOW
[2017-06-30 18:33] LABS: HEMATOCRIT 39.9 % (36.0-47.0); HEMOGLOBIN 12.5 g/dL (12.0-15.5); MEAN CORPUSCULAR HEMOGLOBIN 24.4 pg (27.0-33.4); MEAN CORPUSCULAR HGB CONC 31.2 g/dL (32.0-36.0); MEAN CORPUSCULAR VOLUME 78 fl (80-97); PLATELET COUNT 460 10^3/uL (150-450); RED BLOOD COUNT 5.11 10^6/uL (3.72-5.28); RED CELL DISTRIBUTION WIDTH 19.1 % (11.5-14.0); WHITE BLOOD COUNT 22.9 10^3/uL (4.0-10.5)
[2017-06-30 18:47] LABS: ALANINE AMINOTRANSFERASE 50 U/L (9-52); ALBUMIN 4.2 g/dL (3.5-5.0); ALKALINE PHOSPHATASE 123 U/L (38-126); ANION GAP 10 (5-19); ASPARTATE AMINO TRANSFERASE 21 U/L (14-36); BILIRUBIN,TOTAL 0.5 mg/dL (0.2-1.3); BLOOD UREA NITROGEN 15 mg/dL (7-20); CALCIUM 10.5 mg/dL (8.4-10.2); CARBON DIOXIDE 29 mmol/L (22-30); CHLORIDE 101 mmol/L (98-107); GLUCOSE 91 mg/dL (75-110); POTASSIUM 4.3 mmol/L (3.6-5.0); SODIUM 140.1 mmol/L (137-145); TOTAL PROTEIN 6.9 g/dL (6.3-8.2)
[2017-06-30 18:59] LABS: ABSOLUTE MONOCYTES # (MANUAL) 1.4 10^3/uL (0.1-1.4); ABSOLUTE NEUTROPHILS# (MANUAL) 18.5 10^3/uL (1.7-8.2); BAND NEUTROPHILS % (MANUAL) 1 % (3-5); BASOPHILS % (MANUAL) 0 % (0-2); EOSINOPHILS % (MANUAL) 0 % (0-6); LYMPHOCYTES % (MANUAL) 13 % (13-45); MONOCYTES % (MANUAL) 6 % (3-13); SEGMENTED NEUTROPHILS % (MAN) 80 % (42-78); TOTAL CELLS COUNTED 100
[2017-06-30 19:02] LABS: ANISOCYTOSIS 2+; OVALOCYTES SLIGHT; PLATELET COMMENT INCREASED; TOXIC GRANULATION SLIGHT
--- NOTE | 2017-06-30 19:13 | RADIOLOGY REPORT (SQ) ---
EXAM DESCRIPTION: CT LTD RENAL STONE PROTOCOL ON COMPLETED DATE/TIME: 06/30/2017 6:49 pm REASON FOR STUDY: flank pain, hematuria COMPARISON: None. TECHNIQUE: CT scan of the abdomen and pelvis performed without intravenous or oral contrast. Images reviewed with lung, soft tissue, and bone windows. Reconstructed coronal and sagittal MPR images revi ewed. All images stored on PACS. All CT scanners at this facility use dose modulation, iterative reconstruction, and/or weight based d osing when appropriate to reduce radiation dose to as low as reasonably achievable (ALARA). [facility]: Dose Right [facility]: CareDose [facility]: Dose Right [facility]: Teradose 4D [facility]: [employer] RADIATION DOSE: CT Rad equipment meets quality standard of care and radiation dose reduction techniq ues were employed. CTDIvol: 18.9 mGy. DLP: 1018 mGy-cm.mGy. LIMITATIONS: None. FINDINGS: LOWER CHEST: No significant findings. No nodules or infiltrates. NON-CONTRASTED LIVER, SPLEEN, ADRENALS: Evaluation limited by lack of IV contrast. No identified sign ificant masses. PANCREAS: No masses. No peripancreatic inflammatory changes. GALLBLADDER: Surgically absent. RIGHT KIDNEY AND URETER: No suspicious masses. Assessment limited by lack of IV contrast. No signif icant calcifications. Moderate hydronephrosis and ureterectasis on the basis of a 3 x 3 x 10 mm ure terovesicular junction stone. LEFT KIDNEY AND URETER: No suspicious masses. Assessment limited by lack of IV contrast. No signifi cant calcifications. No hydronephrosis or hydroureter. AORTA AND RETROPERITONEUM: No aneurysm. No retroperitoneal masses or adenopathy. BOWEL AND PERITONEAL CAVITY: No obvious masses or inflammatory changes. No free fluid. APPENDIX: Not visualized. PELVIS, BLADDER, AND ABDOMINAL WALL:No abnormal masses. No free fluid. Bladder normal. BONES: No significant findings. OTHER: No other significant finding. IMPRESSION: Moderate right-sided hydronephrosis and ureterectasis on the basis of a 3 x 3 x 10 mm ur eterovesicular junction ureterolith. COMMENT: Quality ID # [id number]: Final reports with documentation of one or more dose reduction techniques (e.g., Automated exposure control, adjustment of the mA and/or kV according to patient size, use of iterative reconstruction technique) TECHNICAL DOCUMENTATION: JOB ID: [id number]- All Rights Reserved Reading location - IP/workstation name: [email or web address]
[2017-06-30] MEDS ORDERED: MORPHINE SULFATE 10 MG/ML INJ IV PRN (19:21)
[2017-06-30] MEDS ORDERED: TAMSULOSIN HCL 0.4 MG CAP.SR.24H PO ONE (20:30)
[2017-06-30] MEDS ORDERED: HYDROCODONE/ACETAMINOPHEN 5-325 MG (6 TAB/ER DISP) PO PRN (20:30)
[2017-06-30] MEDS ORDERED: ONDANSETRON ODT 4 MG TAB (6 TAB/ER DISP) PO PRN (20:30)
--- NOTE | 2017-06-30 20:31 | ER Document Report ---
ED General - General Chief Complaint: Flank Pain Stated Complaint: BACK PAIN, VOMITING Time Seen by Provider: 06/30/17 16:30 Notes: Patient is a 27-year-old female without past medical history who presents with 8 -10 hours of severe, stabbing, constant pain to her right flank radiating into her right lower abdomen. Patient states that the pain started abruptly and woke her from sleep this morning. Has been unchanged since that time. She denies any history of similar symptoms in the past. Has been associated with nausea and vomiting. No chest pain, shortness of breath, fever, or dysuria. She has not seen her primary doctor regarding today's concerns. TRAVEL OUTSIDE OF THE [place] IN LAST 30 DAYS: No - Related Data Allergies/Adverse Reactions: Neuromuscular Blockers, Steroidal [Steroidal Neuromuscular Blockers] Allergy ( Severe, Verified 06/30/17 15:38) esophageal/stomach ulcers latex [Latex] Allergy (Intermediate, Verified 06/30/17 15:38) redness/blisters Past Medical History - General Information source: Patient - Social History Smoking Status: Current Every Day Smoker Frequency of alcohol use: None Drug Abuse: None Lives with: Spouse/Significant other Family History: Arthritis, CAD, DM, Hyperlipidemia, Hypertension, Thyroid Disfunction, Other - Sarcoidosis Patient has suicidal ideation: No Patient has homicidal ideation: No - Past Medical History Cardiac Medical History: Reports: Hx Hypertension Pulmonary Medical History: Neurological Medical History: Reports: Hx Migraine Renal/ Medical History: Reports: Hx Ovarian Cysts. Denies: Hx Peritoneal Dialysis GI Medical History: Denies: Hx Hepatitis Musculoskeltal Medical History: Reports Hx Fibromyalgia, Reports Hx Musculoskeletal Trauma Psychiatric Medical History: Reports: Hx Anxiety, Hx Depression Infectious Medical History: Denies: Hx Hepatitis Past Surgical History: Reports: Hx Appendectomy, Hx Section, Hx Cholecystectomy, Hx Orthopedic Surgery - right foot, Hx Tonsillectomy - Immunizations Immunizations up to date: Yes Hx Diphtheria, Pertussis, Tetanus Vaccination: Yes Review of Systems - Review of Systems Notes: Constitutional: Negative for fever. HENT: Negative for sore throat. Eyes: Negative for visual changes. Cardiovascular: Negative for chest pain. Respiratory: Negative for shortness of breath. Gastrointestinal: Positive for flank tenderness and vomiting Genitourinary: Positive for hematuria Musculoskeletal: Negative for back pain. Skin: Negative for rash. Neurological: Negative for headaches, weakness or numbness. 10 point ROS negative except as marked above and in HPI. Physical Exam - Vital signs Vitals: Temp Pulse Resp BP Pulse Ox 98.1 F 101 H 16 138/104 H 99 06/30/17 15:44 06/30/17 15:44 06/30/17 15:44 06/30/17 15:44 06/30/17 15:44 Interpretation: Tachycardic Notes: PHYSICAL EXAMINATION: GENERAL: Appears moderately uncomfortable but in no acute distress HEAD: Atraumatic, normocephalic. EYES: Pupils equal round and reactive to light, extraocular movements intact, sclera anicteric, conjunctiva are normal. ENT: nares patent, oropharynx clear without exudates. Moderately dry mucous membranes. NECK: Normal range of motion, supple without lymphadenopathy LUNGS: Breath sounds clear to auscultation bilaterally and equal. No wheezes rales or rhonchi. HEART: Regular rate and rhythm without murmurs ABDOMEN: Soft, severe right CVA tenderness otherwise no localized areas of tenderness, normoactive bowel sounds. No guarding, no rebound. No masses appreciated. EXTREMITIES: Normal range of motion, no pitting or edema. No cyanosis. NEUROLOGICAL: No focal neurological deficits. Moves all extremities spontaneously and on command. PSYCH: Normal mood, normal affect. SKIN: Warm, Dry, normal turgor, no rashes or lesions noted. Course - Re-evaluation Re-evalutation: 06/30/17 20:26 Presents with findings consistent with acute nephrolithiasis. Urinalysis does show hematuria. CT scan does show a relatively large kidney stone at 3 x 3 x 10 mm with associated hydronephrosis. Laboratories do show a leukocytosis although I suspect this is secondary to demargination as patient is currently on a prednisone burst for sarcoidosis as her urinalysis and clinical history is not consistent with a septic stone. Pain was able to be controlled here in the emergency department. Patient is tolerating oral intake. Clinical history is not consistent with an acute abdominal aneurysm or dissection, SC, or pulmonary embolus. Vitals have remained within normal limits. Patient will be discharged with recommendations to follow-up with urology, pain medications, prophylactic antibiotics given the leukocytosis as an extra precaution. At this time will discharge with return precautions and follow-up recommendations. Verbal discharge instructions given a the bedside and opportunity for questions given. Medication warnings reviewed. Patient is in agreement with this plan and has verbalized understanding of return precautions and the need for urology follow-up in the next 24-72 hours. - Vital Signs Vital signs: Temp Pulse Resp BP Pulse Ox 97.3 F 96 18 129/83 H 99 06/30/17 21:14 06/30/17 21:14 06/30/17 21:14 06/30/17 21:14 06/30/17 21:14 - Laboratory Result Diagrams: 06/30/17 18:12 06/30/17 18:12 Laboratory results interpreted by me: 06/30/17 06/30/17 06/30/17 17:12 18:12 18:12 WBC 22.9 H MCV 78 L MCH 24.4 L MCHC 31.2 L RDW 19.1 H Plt Count 460 H Seg Neuts % (Manual) 80 H Band Neutrophils % 1 L Abs Neuts (Manual) 18.5 H Calcium 10.5 H Urine Protein 30 H Urine Blood LARGE H Urine Nitrite POSITIVE H Urine Urobilinogen 4.0 H - Diagnostic Test Radiology reviewed: Reports reviewed Discharge - Discharge Clinical Impression: Hydronephrosis, right, Kidney stone on right side Nausea and vomiting Qualifiers: Vomiting type: unspecified Vomiting Intractability: non-intractable Qualified Code(s): R11.2 - Nausea with vomiting, unspecified Condition: Stable Disposition: HOME, SELF-CARE Additional Instructions: Your symptoms should improve over the course of the next one week. If you continue to have pain for greater than one week or your pain is not controlled with the pain medications that you have been sent home with you need to return to the emergency department. Please also return if you develop fever, persistent vomiting, or any other symptoms that are concerning to you. For your pain: Take ibuprofen 600 mg and acetaminophen 1000 mg every 6 hours together as needed for pain. If this does not control your pain you may take 15 mg of oral morphine every 4 hours as needed. Please be very careful about using the oral morphine and only use this for severe pain. You are also been sent home with a medication called Flomax to help pass the stone. You've been given Zofran to assist with nausea. Please follow-up with urology in the next 2 -3 days. Please contact either [facility] ([facility]) or the listed urologist. Prescriptions: Morphine Sulfate [Morphine Ir 15 mg Tablet] 15 mg PO Q4HP PRN #12 tablet PRN Reason: Cephalexin Monohydrate [Keflex 500 mg Capsule] 500 mg PO Q6H 5 Days capsule Tamsulosin HCl [Flomax 0.4 mg Cap.sr] 0.4 mg PO DAILY #7 cap.sr.24h Referrals: JOHN WALTER,CESAR Espinosa MD [WINDOWS SERVER ADMINISTRATOR] - Follow up in 3-5 days
[2017-06-30] MEDS ORDERED: CEPHALEXIN 500 MG CAPSULE PO ONE (20:32)
[2017-06-30 21:27] VITALS: BP 129/83
== END 2017-06-30 21:23 | disposition home or self-care (01) ==
LOC: ER 15:37
DX: N13.2 Hydronephrosis with renal and ureteral calculous obstruction (principal); R11.2 Nausea with vomiting, unspecified; R31.9 Hematuria, unspecified; D72.829 Elevated white blood cell count, unspecified; R10.31 Right lower quadrant pain; I10 Essential (primary) hypertension; F17.200 Nicotine dependence, unspecified, uncomplicated; Z88.8 Allergy status to other drugs, medicaments and biological substances; Z91.040 Latex allergy status
CPT/HCPCS: 99284; 96361; 96374; 96375; 36415; 87086; 84703; 85025; 80053; 81001; 76380; J1885; J3490; J2405; J7030

== ENCOUNTER 2017-07-08 20:12 | Emergency (ER) | payer MEDICAID ==
--- NOTE | 2017-07-08 21:13 | ER Document Report ---
ED Medical Screen (RME) - General Chief Complaint: Possible Kidney Stone Stated Complaint: RIGHT FLANK PAIN Time Seen by Provider: 07/08/17 21:09 Notes: 27-year-old female presents to ED for complaint of right flank pain. She was seen recently diagnosed with kidney stones and hydronephrosis with a UTI. She states she went to the urologist at [facility] and they wanted to do a surgery Medicaid refused. She states she was told by the urologist to come back to the emergency room if she had an increase in pain. She states she was given Zofran and she took that last 0 tonight. She states she was also given a prescription for morphine and she took the last dose of that this morning. She states she has not had a period in a long time as she is on the Depo-Provera injection. I have greeted and performed a rapid initial assessment of this patient. A comprehensive ED assessment and evaluation of the patient, analysis of test results and completion of medical decision making process will be conducted by an additional ED providers.. TRAVEL OUTSIDE OF THE [place] IN LAST 30 DAYS: No - Related Data Allergies/Adverse Reactions: Neuromuscular Blockers, Steroidal [Steroidal Neuromuscular Blockers] Allergy ( Severe, Verified 06/30/17 15:38) esophageal/stomach ulcers latex [Latex] Allergy (Intermediate, Verified 06/30/17 15:38) redness/blisters Past Medical History - Social History Chew tobacco use (# tins/day): No Frequency of alcohol use: None Drug Abuse: None - Past Medical History Cardiac Medical History: Reports: Hx Hypertension Pulmonary Medical History: Neurological Medical History: Reports: Hx Migraine Renal/ Medical History: Reports: Hx Ovarian Cysts. Denies: Hx Peritoneal Dialysis GI Medical History: Denies: Hx Hepatitis Musculoskeltal Medical History: Reports Hx Fibromyalgia, Reports Hx Musculoskeletal Trauma Psychiatric Medical History: Reports: Hx Anxiety, Hx Depression Infectious Medical History: Denies: Hx Hepatitis Past Surgical History: Reports: Hx Appendectomy, Hx Section, Hx Cholecystectomy, Hx Orthopedic Surgery - right foot, Hx Tonsillectomy - Immunizations Immunizations up to date: Yes Hx Diphtheria, Pertussis, Tetanus Vaccination: Yes Physical Exam - Vital signs Vitals: Temp Pulse Resp BP Pulse Ox 97.5 F 90 16 137/55 H 98 07/08/17 20:32 07/08/17 20:32 07/08/17 20:32 07/08/17 20:32 07/08/17 20:32 Course - Vital Signs Vital signs: Temp Pulse Resp BP Pulse Ox 97.5 F 90 16 137/55 H 98 07/08/17 20:32 07/08/17 20:32 07/08/17 20:32 07/08/17 20:32 07/08/17 20:32
[2017-07-08] MEDS ORDERED: KETOROLAC TROMETHAMINE INJ/PF 30 MG/1 ML SDV IV ONE (21:34)
[2017-07-08] MEDS ORDERED: MORPHINE SULFATE 10 MG/ML INJ IV PRN (21:35)
[2017-07-08 21:37] LABS: ABSOLUTE BASOPHILS # (AUTO) 0.2 10^3/uL (0.0-0.2); ABSOLUTE EOSINOPHILS # (AUTO) 0.4 10^3/uL (0.0-0.6); ABSOLUTE LYMPHOCYTES (AUTO) 2.7 10^3/uL (0.5-4.7); ABSOLUTE MONOCYTES (AUTO) 0.5 10^3/uL (0.1-1.4); ABSOLUTE NEUT (AUTO) 8.6 10^3/uL (1.7-8.2); BASOPHILS % (AUTO) 1.5 % (0-2); EOSINOPHILS % (AUTO) 3.2 % (0-6); HEMATOCRIT 34.9 % (36.0-47.0); MEAN CORPUSCULAR HEMOGLOBIN 24.8 pg (27.0-33.4); MEAN CORPUSCULAR HGB CONC 31.4 g/dL (32.0-36.0); MEAN CORPUSCULAR VOLUME 79 fl (80-97); MONOCYTES % (AUTO) 3.8 % (3-13); PLATELET COUNT 352 10^3/uL (150-450); RED BLOOD COUNT 4.43 10^6/uL (3.72-5.28); RED CELL DISTRIBUTION WIDTH 20.6 % (11.5-14.0); SEGMENTED NEUTROPHILS % (AUTO) 69.5 % (42-78); TOTAL CELLS COUNTED % (AUTO) 100 %; WHITE BLOOD COUNT 12.4 10^3/uL (4.0-10.5)
[2017-07-08 21:52] LABS: ALANINE AMINOTRANSFERASE 96 U/L (9-52); ALBUMIN 3.6 g/dL (3.5-5.0); ALKALINE PHOSPHATASE 112 U/L (38-126); ANION GAP 8 (5-19); ASPARTATE AMINO TRANSFERASE 35 U/L (14-36); BILIRUBIN,DIRECT 0.1 mg/dL (0.0-0.4); BILIRUBIN,TOTAL 0.2 mg/dL (0.2-1.3); BLOOD UREA NITROGEN 6 mg/dL (7-20); CALCIUM 9.5 mg/dL (8.4-10.2); CARBON DIOXIDE 30 mmol/L (22-30); CHLORIDE 101 mmol/L (98-107); GLUCOSE 94 mg/dL (75-110); POTASSIUM 3.6 mmol/L (3.6-5.0); SODIUM 138.5 mmol/L (137-145); TOTAL PROTEIN 6.1 g/dL (6.3-8.2)
[2017-07-08] MEDS ORDERED: HYDROCODONE/ACETAMINOPHEN 5-325 MG (6 TAB/ER DISP) PO PRN (21:56)
[2017-07-08] MEDS ORDERED: TAMSULOSIN HCL 0.4 MG CAP.SR.24H PO ONE (21:56)
[2017-07-08 21:58] LABS: AMORPHOUS SEDIMENT,URINE TRACE /HPF
--- NOTE | 2017-07-08 22:03 | ER Document Report ---
ED General - General Chief Complaint: Possible Kidney Stone Stated Complaint: RIGHT FLANK PAIN Time Seen by Provider: 07/08/17 21:09 Notes: Patient is a 27 year old female who presents with ongoing right flank pain. I saw this patient approximately 10 days ago for the same and diagnosed at that time with a 10 mm stone with a possible associated infection. Patient reports that she has followed up with Dr. Cason as recommended and that she is scheduled for a nephrostomy tube placement with associated lithotripsy 3 days from today. However, she states that her pain has persisted and she has now run out of pain medications and the pain has become unbearable. She describes it as a dull, aching, throbbing pain to the right flank that is constant in nature. Nothing improves or worsens the pain at this time although she knows that the morphine that was prescribed did control her pain. She also notes associated nausea without vomiting. She denies any fever or constitutional symptoms. TRAVEL OUTSIDE OF THE [place] IN LAST 30 DAYS: No - Related Data Allergies/Adverse Reactions: Neuromuscular Blockers, Steroidal [Steroidal Neuromuscular Blockers] Allergy ( Severe, Verified 06/30/17 15:38) esophageal/stomach ulcers latex [Latex] Allergy (Intermediate, Verified 06/30/17 15:38) redness/blisters Past Medical History - General Information source: Patient - Social History Smoking Status: Current Every Day Smoker Chew tobacco use (# tins/day): No Frequency of alcohol use: None Drug Abuse: None Lives with: Spouse/Significant other Family History: Arthritis, CAD, DM, Hyperlipidemia, Hypertension, Thyroid Disfunction, Other - Sarcoidosis Patient has suicidal ideation: No Patient has homicidal ideation: No - Past Medical History Cardiac Medical History: Reports: Hx Hypertension Pulmonary Medical History: Neurological Medical History: Reports: Hx Migraine Renal/ Medical History: Reports: Hx Ovarian Cysts. Denies: Hx Peritoneal Dialysis GI Medical History: Denies: Hx Hepatitis Musculoskeltal Medical History: Reports Hx Fibromyalgia, Reports Hx Musculoskeletal Trauma Psychiatric Medical History: Reports: Hx Anxiety, Hx Depression Infectious Medical History: Denies: Hx Hepatitis Past Surgical History: Reports: Hx Appendectomy, Hx Section, Hx Cholecystectomy, Hx Orthopedic Surgery - right foot, Hx Tonsillectomy - Immunizations Immunizations up to date: Yes Hx Diphtheria, Pertussis, Tetanus Vaccination: Yes Review of Systems - Review of Systems Notes: Constitutional: Negative for fever. HENT: Negative for sore throat. Eyes: Negative for visual changes. Cardiovascular: Negative for chest pain. Respiratory: Negative for shortness of breath. Gastrointestinal: Positive for right flank pain and nausea Genitourinary: Negative for dysuria. Musculoskeletal: Negative for back pain. Skin: Negative for rash. Neurological: Negative for headaches, weakness or numbness. 10 point ROS negative except as marked above and in HPI. Physical Exam - Vital signs Vitals: Temp Pulse Resp BP Pulse Ox 97.5 F 90 16 137/55 H 98 07/08/17 20:32 07/08/17 20:32 07/08/17 20:32 07/08/17 20:32 07/08/17 20:32 Interpretation: Normal Notes: PHYSICAL EXAMINATION: GENERAL: Appears mildly uncomfortable but in no acute distress HEAD: Atraumatic, normocephalic. EYES: Pupils equal round and reactive to light, extraocular movements intact, sclera anicteric, conjunctiva are normal. ENT: nares patent, oropharynx clear without exudates. Moist mucous membranes. NECK: Normal range of motion, supple without lymphadenopathy LUNGS: Breath sounds clear to auscultation bilaterally and equal. No wheezes rales or rhonchi. HEART: Regular rate and rhythm without murmurs ABDOMEN: Soft, nontender, normoactive bowel sounds. No guarding, no rebound. No masses appreciated. Mild right CVA tenderness. EXTREMITIES: Normal range of motion, no pitting or edema. No cyanosis. NEUROLOGICAL: No focal neurological deficits. Moves all extremities spontaneously and on command. PSYCH: Normal mood, normal affect. SKIN: Warm, Dry, normal turgor, no rashes or lesions noted. Course - Re-evaluation Re-evalutation: 07/08/17 21:57 Patient presents with recurrent right flank pain, with a known 10 mm stone that I diagnosed approximately 2 weeks ago. She has followed up with urology as directed and is scheduled to go to the operating room for lithotripsy and stent placement on Sunday. She has returned to the emergency department for pain control as she is currently out of pain medications and is having worsening pain and nausea due to lack of access to these medications. Her labs today are unremarkable. Her prior urinalysis showed contamination as opposed to a true urinary tract infection. She has no signs or symptoms to suggest an infected stone. She does have an appropriate follow-up plan with definitive management scheduled within the next 3 days. No indication for emergent transfer at this time. Patient is in agreement with this plan. Her clinical history and exam is not consistent with an alternative concerning pathology such as acute appendicitis, biliary pathology, related pathology, at this time will discharge with return precautions and follow-up recommendations. Verbal discharge instructions given a the bedside and opportunity for questions given. Medication warnings reviewed. Patient is in agreement with this plan and has verbalized understanding of return precautions and the need for primary care follow-up in the next 24-72 hours. - Vital Signs Vital signs: Temp Pulse Resp BP Pulse Ox 98.1 F 89 18 140/73 H 98 07/08/17 23:15 07/08/17 23:15 07/08/17 23:15 07/08/17 23:15 07/08/17 23:15 - Laboratory Result Diagrams: 07/08/17 21:20 07/08/17 21:20 Laboratory results interpreted by me: 07/08/17 07/08/17 07/08/17 21:20 21:20 21:30 WBC 12.4 H Hgb 11.0 L Hct 34.9 L MCV 79 L MCH 24.8 L MCHC 31.4 L RDW 20.6 H Absolute Neutrophils 8.6 H BUN 6 L ALT 96 H Total Protein 6.1 L Ur Leukocyte Esterase LARGE H Discharge - Discharge Clinical Impression: Kidney stone on right side, Right flank pain, Nausea Condition: Good Disposition: HOME, SELF-CARE Additional Instructions: Please follow-up with the urologist as scheduled this upcoming week for definitive management. Take ibuprofen 600 mg every 6 hours. Take the [place] with which you were sent home for pain that is not controlled by ibuprofen. You also may take Zofran as needed for nausea. Take the Flomax as prescribed. Return for worsening pain, persistent vomiting, fever greater than 101F, or any other symptoms that are worrisome to you. Prescriptions: Hydrocodone/Acetaminophen [[place] 5-325 mg Tablet] 1 tab PO Q4HP PRN #15 tablet PRN Reason: Tamsulosin HCl [Flomax 0.4 mg Cap.sr] 0.4 mg PO DAILY #7 cap.sr.24h Referrals: OLIVIA GREEN MD [Primary Care Provider] - Follow up as needed CESAR LOPEZ II, MD [[facility]] - Follow up as needed
[2017-07-08] MEDS ORDERED: ONDANSETRON ODT 4 MG TAB (6 TAB/ER DISP) PO PRN (22:04)
[2017-07-08 22:09] LABS: APPEARANCE,URINE CLEAR; BILIRUBIN,URINE NEGATIVE (NEGATIVE); COLOR,URINE YELLOW; GLUCOSE, URINE NEGATIVE (NEGATIVE); KETONES,URINE NEGATIVE (NEGATIVE); LEUKOCYTE ESTERASE,URINE LARGE (NEGATIVE); NITRITE,URINE NEGATIVE (NEGATIVE); PROTEIN,URINE NEGATIVE (NEGATIVE); URINE SPECIFIC GRAVITY 1.012; UROBILINOGEN,URINE NEGATIVE mg/dL (<2.0)
[2017-07-08 23:26] VITALS: BP 140/73
== END 2017-07-08 23:15 | disposition home or self-care (01) ==
LOC: ER 20:12
DX: N20.0 Calculus of kidney (principal); R11.0 Nausea; R10.9 Unspecified abdominal pain; F17.200 Nicotine dependence, unspecified, uncomplicated; I10 Essential (primary) hypertension; Z90.49 Acquired absence of other specified parts of digestive tract; Z90.710 Acquired absence of both cervix and uterus
CPT/HCPCS: 99284; 96374; 96375; 36415; 87086; 84703; 85025; 87088; 80053; 81001; 87186; J1885; J2270; J3490

== ENCOUNTER 2017-07-12 18:58 | Emergency (ER) | payer MEDICAID ==
[2017-07-12] MEDS ORDERED: ONDANSETRON HCL INJ/PF 4 MG/2 ML SDV IV ONE (19:27)
[2017-07-12] MEDS ORDERED: FENTANYL CITRATE INJ/PF 100 MCG/2 ML AMPUL IV ONE (19:27)
--- NOTE | 2017-07-12 19:30 | ER Document Report ---
ED Medical Screen (RME) - General Chief Complaint: Flank Pain Stated Complaint: FLANK PAIN Time Seen by Provider: 07/12/17 19:22 Notes: RME DISCLOSURE I have seen this patient as part of a Rapid Medical Evaluation and, if applicable, placed any initially appropriate orders. The patient will be seen and fully evaluated, including a full history and physical exam, by a provider ( in Main ED or Fast Track) when a room becomes available. 27-year-old female here with complaints of right and left flank pain nausea and vomiting. Started with right flank pain 1-2 weeks ago and was seen here recently, diagnosed with a 3 x 3 x 10 mm kidney stone. She was sent to have the stone removed yesterday by the urologist however "Medicaid took their sweet time approving it" so it had to be rescheduled for next Sunday. She is here because she has run out of pain medicine and is having more pain. TRAVEL OUTSIDE OF THE [place] IN LAST 30 DAYS: No - Related Data Allergies/Adverse Reactions: Neuromuscular Blockers, Steroidal [Steroidal Neuromuscular Blockers] Allergy ( Severe, Verified 07/12/17 18:59) esophageal/stomach ulcers latex [Latex] Allergy (Intermediate, Verified 07/12/17 18:59) redness/blisters Past Medical History - Social History Chew tobacco use (# tins/day): No Frequency of alcohol use: None Drug Abuse: None - Past Medical History Cardiac Medical History: Reports: Hx Hypertension Pulmonary Medical History: Neurological Medical History: Reports: Hx Migraine Renal/ Medical History: Reports: Hx Ovarian Cysts. Denies: Hx Peritoneal Dialysis GI Medical History: Denies: Hx Hepatitis Musculoskeltal Medical History: Reports Hx Fibromyalgia, Reports Hx Musculoskeletal Trauma Psychiatric Medical History: Reports: Hx Anxiety, Hx Depression Infectious Medical History: Denies: Hx Hepatitis Past Surgical History: Reports: Hx Appendectomy, Hx Section, Hx Cholecystectomy, Hx Orthopedic Surgery - right foot, Hx Tonsillectomy - Immunizations Immunizations up to date: Yes Hx Diphtheria, Pertussis, Tetanus Vaccination: Yes Physical Exam - Vital signs Vitals: Temp Pulse Resp BP Pulse Ox 98.2 F 113 H 18 134/75 H 97 07/12/17 19:03 07/12/17 19:03 07/12/17 19:03 07/12/17 19:03 07/12/17 19:03 Course - Vital Signs Vital signs: Temp Pulse Resp BP Pulse Ox 98.2 F 113 H 18 134/75 H 97 07/12/17 19:03 07/12/17 19:03 07/12/17 19:03 07/12/17 19:03 07/12/17 19:03
[2017-07-12 19:57] LABS: ABSOLUTE BASOPHILS # (AUTO) 0.1 10^3/uL (0.0-0.2); ABSOLUTE EOSINOPHILS # (AUTO) 0.5 10^3/uL (0.0-0.6); ABSOLUTE LYMPHOCYTES (AUTO) 2.3 10^3/uL (0.5-4.7); ABSOLUTE MONOCYTES (AUTO) 0.4 10^3/uL (0.1-1.4); ABSOLUTE NEUT (AUTO) 7.2 10^3/uL (1.7-8.2); BASOPHILS % (AUTO) 0.6 % (0-2); EOSINOPHILS % (AUTO) 4.8 % (0-6); HEMATOCRIT 34.9 % (36.0-47.0); MEAN CORPUSCULAR HGB CONC 31.6 g/dL (32.0-36.0); MEAN CORPUSCULAR VOLUME 79 fl (80-97); MONOCYTES % (AUTO) 3.8 % (3-13); PLATELET COUNT 345 10^3/uL (150-450); RED BLOOD COUNT 4.41 10^6/uL (3.72-5.28); RED CELL DISTRIBUTION WIDTH 19.7 % (11.5-14.0); SEGMENTED NEUTROPHILS % (AUTO) 68.8 % (42-78); TOTAL CELLS COUNTED % (AUTO) 100 %; WHITE BLOOD COUNT 10.5 10^3/uL (4.0-10.5)
[2017-07-12 20:05] LABS: AMORPHOUS SEDIMENT,URINE TRACE /HPF; APPEARANCE,URINE CLEAR; BILIRUBIN,URINE NEGATIVE (NEGATIVE); COLOR,URINE STRAW; GLUCOSE, URINE NEGATIVE (NEGATIVE); KETONES,URINE NEGATIVE (NEGATIVE); LEUKOCYTE ESTERASE,URINE NEGATIVE (NEGATIVE); NITRITE,URINE NEGATIVE (NEGATIVE); PROTEIN,URINE NEGATIVE (NEGATIVE); URINE SPECIFIC GRAVITY 1.006; UROBILINOGEN,URINE NEGATIVE mg/dL (<2.0)
[2017-07-12 20:14] LABS: ALANINE AMINOTRANSFERASE 71 U/L (9-52); ALBUMIN 3.6 g/dL (3.5-5.0); ALKALINE PHOSPHATASE 108 U/L (38-126); ANION GAP 9 (5-19); ASPARTATE AMINO TRANSFERASE 32 U/L (14-36); BILIRUBIN,DIRECT 0.3 mg/dL (0.0-0.4); BILIRUBIN,TOTAL 0.3 mg/dL (0.2-1.3); BLOOD UREA NITROGEN 5 mg/dL (7-20); CALCIUM 9.7 mg/dL (8.4-10.2); CARBON DIOXIDE 28 mmol/L (22-30); CHLORIDE 103 mmol/L (98-107); GLUCOSE 94 mg/dL (75-110); LIPASE 170.9 U/L (23-300); POTASSIUM 4.3 mmol/L (3.6-5.0); TOTAL PROTEIN 6.4 g/dL (6.3-8.2)
[2017-07-12] MEDS ORDERED: MORPHINE SULFATE 10 MG/ML INJ IV ONE (22:07)
[2017-07-12] MEDS ORDERED: NORMAL SALINE 1000 ML 1,000 ML IV ONE (22:07)
[2017-07-12] MEDS ORDERED: KETOROLAC TROMETHAMINE INJ/PF 30 MG/1 ML SDV IV ONE (22:07)
--- NOTE | 2017-07-12 22:10 | ER Document Report ---
ED GI/ - General Chief Complaint: Flank Pain Stated Complaint: FLANK PAIN Time Seen by Provider: 07/12/17 19:22 Notes: Patient is a 27-year-old female with a known right-sided 10 mm ureterolithiasis that comes emergency department for chief complaint of 3 episodes of vomiting today and pain on the right flank that radiates around her right side. She denies fever. She states she was called 2 days ago and told to start taking a prescription that was phoned in to her, Bactrim, culture showed strep. Patient states she was seen by Dr. Gonzalez originally, she was then seen by a different urologist and she cannot remember their name at the same location because Dr. Gonzalez travels, she states that due to insurance reasons and the new doctor she is now scheduled to have a stent placed this coming Sunday (she has postponed management). She took her last [place] today. She has Zofran at home for nausea. She has had an appendectomy and cholecystectomy. TRAVEL OUTSIDE OF THE [place] IN LAST 30 DAYS: No - Related Data Allergies/Adverse Reactions: Neuromuscular Blockers, Steroidal [Steroidal Neuromuscular Blockers] Allergy ( Severe, Verified 07/12/17 18:59) esophageal/stomach ulcers latex [Latex] Allergy (Intermediate, Verified 07/12/17 18:59) redness/blisters Past Medical History - General Information source: Patient - Social History Smoking Status: Current Every Day Smoker Chew tobacco use (# tins/day): No Frequency of alcohol use: None Drug Abuse: None Family History: Arthritis, CAD, DM, Hyperlipidemia, Hypertension, Thyroid Disfunction, Other - Sarcoidosis Patient has suicidal ideation: No Patient has homicidal ideation: No - Past Medical History Cardiac Medical History: Reports: Hx Hypertension Pulmonary Medical History: Neurological Medical History: Reports: Hx Migraine Renal/ Medical History: Reports: Hx Ovarian Cysts. Denies: Hx Peritoneal Dialysis GI Medical History: Denies: Hx Hepatitis Musculoskeltal Medical History: Reports Hx Fibromyalgia, Reports Hx Musculoskeletal Trauma Psychiatric Medical History: Reports: Hx Anxiety, Hx Depression Infectious Medical History: Denies: Hx Hepatitis Past Surgical History: Reports: Hx Appendectomy, Hx Section, Hx Cholecystectomy, Hx Orthopedic Surgery - right foot, Hx Tonsillectomy - Immunizations Immunizations up to date: Yes Hx Diphtheria, Pertussis, Tetanus Vaccination: Yes Review of Systems - Review of Systems Constitutional: No symptoms reported EENT: No symptoms reported Cardiovascular: No symptoms reported Respiratory: No symptoms reported Gastrointestinal: See HPI Genitourinary: See HPI Female Genitourinary: No symptoms reported Musculoskeletal: No symptoms reported Skin: No symptoms reported Hematologic/Lymphatic: No symptoms reported Neurological/Psychological: No symptoms reported Physical Exam - Vital signs Vitals: Temp Pulse Resp BP Pulse Ox 98.2 F 113 H 18 134/75 H 97 07/12/17 19:03 07/12/17 19:03 07/12/17 19:03 07/12/17 19:03 07/12/17 19:03 Interpretation: Normal - General General appearance: Appears well In distress: None - HEENT Head: Normocephalic, Atraumatic Eyes: Normal Pupils: PERRL - Respiratory Respiratory status: No respiratory distress Chest status: Nontender Breath sounds: Normal. No: Decreased air movement, Wheezing Chest palpation: Normal - Cardiovascular Rhythm: Regular Heart sounds: Normal auscultation Murmur: No - Abdominal Inspection: Normal Distension: No distension Bowel sounds: Normal Tenderness: Tender - Mild generalized lower abdominal tenderness, nonspecific, no guarding Organomegaly: No organomegaly - Back Back: Tender - Patient complains with palpation of the right CVA area, no severe tenderness noted, otherwise normal back exam - Extremities General upper extremity: Normal inspection, Nontender, Normal color, Normal ROM , Normal temperature General lower extremity: Normal inspection, Nontender, Normal color, Normal ROM , Normal temperature, Normal weight bearing. No: Haley's sign - Neurological Neuro grossly intact: Yes Cognition: Normal Orientation: AAOx4 Ish Coma Scale Eye Opening: Spontaneous Ish Coma Scale Verbal: Oriented Ish Coma Scale Motor: Obeys Commands [place] Coma Scale Total: 15 Speech: Normal Motor strength normal: LUE, RUE, LLE, RLE Sensory: Normal - Psychological Associated symptoms: Normal affect, Normal mood - Skin Skin Temperature: Warm Skin Moisture: Dry Skin Color: Normal Course - Re-evaluation Re-evalutation: Patient is in no distress on my exam, she is not tachycardic, there is mild generalized lower abdominal tenderness, nonspecific, no guarding, there is some right CVA tenderness but this is not severe. Patient states she vomited earlier because of pain, she has nausea medication already. CBC with no significant change, no leukocytosis or shift, no fever. Normal renal function on chemistry. Urine does not show infection, patient is taking Bactrim already, culture showed Citrobacter freundii and group B strep, showed sensitivity to Bactrim. Discussed with patient. Patient has good follow-up, is already on appropriate medications, needs pain control. Provided with pain medication prescription, told her to use it only if needed, discussed follow-up , discussed return precautions, patient and significant other state understanding and agreement. - Vital Signs Vital signs: Temp Pulse Resp BP Pulse Ox 98.4 F 82 18 119/57 L 97 07/12/17 23:00 07/12/17 23:00 07/12/17 23:00 07/12/17 23:00 07/12/17 23:00 - Laboratory Result Diagrams: 07/12/17 19:45 07/12/17 19:45 Laboratory results interpreted by me: 07/12/17 07/12/17 19:45 19:45 Hgb 11.0 L Hct 34.9 L MCV 79 L MCH 25.0 L MCHC 31.6 L RDW 19.7 H BUN 5 L ALT 71 H Discharge - Discharge Clinical Impression: Right flank pain, Kidney stone on right side Condition: Stable Disposition: HOME, SELF-CARE Additional Instructions: Follow-up on Sunday with your urologist as planned. You have been provided with additional medication for pain, take this only if needed, take ibuprofen 600 mg every 6 hours, stay hydrated, continue Bactrim, use your nausea medication if needed, continue Flomax. Return if you worsen including uncontrolled vomiting, fever 100.4 or greater, or any other concerning or worsening symptoms. Prescriptions: Morphine Sulfate [Morphine Ir 15 Mg Tablet] 15 mg PO Q4HP PRN #15 tablet PRN Reason: Referrals: OLIVIA GREEN MD [Primary Care Provider] - Follow up as needed
[2017-07-12] MEDS ORDERED: HYDROCODONE/ACETAMINOPHEN 5-325 MG (6 TAB/ER DISP) PO PRN (22:43)
[2017-07-12 23:15] VITALS: BP 119/57
== END 2017-07-12 23:00 | disposition home or self-care (01) ==
LOC: ER 18:58
DX: N20.1 Calculus of ureter (principal); I10 Essential (primary) hypertension; F17.200 Nicotine dependence, unspecified, uncomplicated; Z88.8 Allergy status to other drugs, medicaments and biological substances; Z91.040 Latex allergy status; Z90.49 Acquired absence of other specified parts of digestive tract; Z87.42 Personal history of other diseases of the female genital tract
CPT/HCPCS: 99284; 96361; 96374; 96375; 36415; 83690; 85025; 80053; 81001; J3010; J1885; J2270; J2405; J7030

== ENCOUNTER 2017-07-18 09:49 | Day surgery (SDC) | payer MEDICAID ==
[2017-07-16 11:09] LABS: ABSOLUTE EOSINOPHILS # (AUTO) 0.4 10^3/uL (0.0-0.6); ABSOLUTE LYMPHOCYTES (AUTO) 1.5 10^3/uL (0.5-4.7); ABSOLUTE MONOCYTES (AUTO) 0.3 10^3/uL (0.1-1.4); ABSOLUTE NEUT (AUTO) 4.7 10^3/uL (1.7-8.2); BASOPHILS % (AUTO) 0.5 % (0-2); EOSINOPHILS % (AUTO) 5.6 % (0-6); HEMATOCRIT 32.4 % (36.0-47.0); HEMOGLOBIN 10.4 g/dL (12.0-15.5); LYMPHOCYTES % (AUTO) 22.2 % (13-45); MEAN CORPUSCULAR HEMOGLOBIN 25.1 pg (27.0-33.4); MEAN CORPUSCULAR HGB CONC 32.2 g/dL (32.0-36.0); MEAN CORPUSCULAR VOLUME 78 fl (80-97); MONOCYTES % (AUTO) 4.1 % (3-13); PLATELET COUNT 314 10^3/uL (150-450); RED BLOOD COUNT 4.15 10^6/uL (3.72-5.28); RED CELL DISTRIBUTION WIDTH 19.8 % (11.5-14.0); SEGMENTED NEUTROPHILS % (AUTO) 67.6 % (42-78); TOTAL CELLS COUNTED % (AUTO) 100 %; WHITE BLOOD COUNT 6.9 10^3/uL (4.0-10.5)
[2017-07-16 11:38] LABS: ANION GAP 5 (5-19); BLOOD UREA NITROGEN 6 mg/dL (7-20); CALCIUM 9.5 mg/dL (8.4-10.2); CARBON DIOXIDE 32 mmol/L (22-30); CHLORIDE 103 mmol/L (98-107); GLUCOSE 132 mg/dL (75-110); POTASSIUM 4.7 mmol/L (3.6-5.0); SODIUM 139.5 mmol/L (137-145)
--- NOTE | 2017-07-16 13:37 | EKG REPORT ---
SEVERITY:- NORMAL ECG - SINUS RHYTHM : Confirmed by: Elton Hugo MD 16-Jul-2017 13:37:08
[~2017-07-18 09:49] MED LIST: LACTATED RINGERS 1000 ML IV PRN; LIDOCAINE 0.5% INJ-PF (5 MG/ML) 50 ML SDV SUBCUT PRN
[2017-07-18] MEDS ORDERED: MIDAZOLAM 2 MG/2 ML INJ ONE (11:13)
[2017-07-18] MEDS ORDERED: FENTANYL CITRATE INJ/PF 100 MCG/2 ML AMPUL ONE (11:14)
[2017-07-18] MEDS ORDERED: PROPOFOL INJ 200 MG/20 ML VIAL IV ONE (11:14)
[2017-07-18] MEDS ORDERED: ACETAMINOPHEN 100 ML IV ONE (11:14)
[2017-07-18] MEDS ORDERED: CIPROFLOXACIN 400 MG/D5W RTU 400 MG/200 ML RTUPB IV ONE (11:37)
[2017-07-18] MEDS ORDERED: KETAMINE HCL INJ 500 MG/10 ML VIAL ONE (12:14)
[2017-07-18] MEDS ORDERED: TETRACAINE HCL/PF 20MG/2ML AMPULE (SPINAL) ONE (12:15)
[2017-07-18] MEDS ORDERED: LIDOCAINE 2% URO-JET 5 ML KIT ONE (12:22)
--- NOTE | 2017-07-18 12:55 | Operative Report ---
Operative Report PREOPERATIVE DIAGNOSIS: ?right ureteral stone. POSTOPERATIVE DIAGNOSIS: Retrograde pyelogram showed no evidence of stone or obstruction OPERATION: Cystoscopy and right retrograde pyelogram SURGEON: EULALIO VILLALOBOS ANESTHESIA: IV-Regional TISSUE REMOVED OR ALTERED: none COMPLICATIONS: None ESTIMATED BLOOD LOSS: None INTRAOPERATIVE FINDINGS: Retrograde showed no evidence of any obstruction of the right pyelogram and there was prompt clearing of the contrast with no holdup or hydro-. There was no evidence of any filling defects also on the ureter PROCEDURE: Patient came in to the operating room after the induction of anesthesia the whole area prepped and scrubbed in the lithotomy position. After that 1% lidocaine gel was injected into the urethra. The 21 cystoscope sheath was inserted into the bladder the bladder inspected normal mucosa both orifices identified normal then #5 ureteral catheter was inserted into the right orifice and right retrograde was done with a 50% saline and 50% contrast there was no evidence of any filling defect or any evidence of obstruction or any evidence of stone disease there was prompt visual clearing of the dye and no evidence of any holdup. After the procedure the cystoscope was removed patient tolerated procedure well and left the operating room in good condition thank you
[2017-07-18 14:40] VITALS: BP 140/79
--- NOTE | 2017-07-18 14:40 | RADIOLOGY REPORT (SQ) ---
EXAM DESCRIPTION: PYELOGRAM RETROGRADE COMPLETED DATE/TIME: 07/18/2017 1:23 pm REASON FOR STUDY: CYSTO N20.1 CALCULUS OF URETER COMPARISON: CT abdomen pelvis 06/30/2017, 02/25/2017 FLUOROSCOPY TIME: 2 seconds total fluoro time 2 digital radiographic images saved to PACS. TECHNIQUE: Intra-operative images acquired during surgical procedure to evaluate progress. NUMBER OF IMAGES: 2 digital radiographic images LIMITATIONS: None. FINDINGS: Right-sided retrograde injection was performed in the cystoscopy suite. No retained radio paque densities in the right ureter. No right h hydroureter. No gross right renal pelvis dilatation . Right lower pole calices are included in the field of view, nondilated. Please see the operative report for further details IMPRESSION: Intra procedural imaging and fluoro COMMENT: Quality ID [id number]: Final reports for procedures using fluoroscopy that document radiation exp osure indices, or exposure time and number of fluorographic images (if radiation exposure indices are not available) Please consult full operative report of the attending physician for description of the procedure. TECHNICAL DOCUMENTATION: JOB ID: [id number] [employer]- All Rights Reserved Reading location - IP/workstation name: [facility]
[2017-07-18] MEDS ORDERED: LIDOCAINE 2% INJ-PF (20 MG/ML) 2 ML AMPUL ONE (18:02)
[2017-07-18] MEDS ORDERED: SUCCINYLCHOLINE CHLORIDE INJ 200 MG/10 ML VIAL ONE (18:02)
== END 2017-07-18 14:25 | disposition home or self-care (01) ==
LOC: OROUT 09:49
PROVIDERS: ATTEND Urology
PROC: BT1DZZZ Fluoroscopy of Right Kidney, Ureter and Bladder (ICD-10-PCS; principal; 2017-07-18 12:00)
DX: N20.1 Calculus of ureter (principal); J45.909 Unspecified asthma, uncomplicated; F17.210 Nicotine dependence, cigarettes, uncomplicated; G47.30 Sleep apnea, unspecified; D86.9 Sarcoidosis, unspecified; Z79.899 Other long term (current) drug therapy
CPT/HCPCS: 93005; 36415; 85025; 81025; 80048; 74420; 93010; 52005; C1758; Q9967; J2250; J3010; J3490 ×4; J0330; J2704; J0744; J0131; 918

== ENCOUNTER 2017-07-30 12:49 | Emergency (ER) | payer MEDICAID ==
[2017-07-30] MEDS ORDERED: MORPHINE SULFATE 10 MG/ML INJ IV ONE (14:37)
--- NOTE | 2017-07-30 14:37 | ER Document Report ---
ED Medical Screen (RME) - General Chief Complaint: Syncope Stated Complaint: SYNCOPE Time Seen by Provider: 07/30/17 14:34 Mode of Arrival: Ambulatory Information source: Patient Notes: Patient states she has a history of sarcoid. She states she is walking into her doctor's office today when she passed out. She states she fell backward and hit her head. She is not having head pain neck pain and right foot pain. She states for approximately 5 months she has passed out every day. She states her primary doctor told her this is due to sarcoid and sleep apnea. However she states that her sleep apnea CPAP machine and medicines for sarcoid have not changed the episodes of syncope. 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 TRAVEL OUTSIDE OF THE [place] IN LAST 30 DAYS: No - Related Data Allergies/Adverse Reactions: latex [Latex] Allergy (Intermediate, Verified 07/16/17 09:35) redness/blisters steroids,oral Allergy (Uncoded 07/18/17 11:58) Past Medical History - Social History Chew tobacco use (# tins/day): No Frequency of alcohol use: None Drug Abuse: None - Past Medical History Cardiac Medical History: Reports: Hx Hypertension Pulmonary Medical History: Neurological Medical History: Reports: Hx Migraine Renal/ Medical History: Reports: Hx Ovarian Cysts. Denies: Hx Peritoneal Dialysis GI Medical History: Denies: Hx Hepatitis Musculoskeltal Medical History: Reports Hx Fibromyalgia, Reports Hx Musculoskeletal Trauma Psychiatric Medical History: Reports: Hx Anxiety, Hx Depression Infectious Medical History: Denies: Hx Hepatitis Past Surgical History: Reports: Hx Appendectomy, Hx Section, Hx Cholecystectomy, Hx Orthopedic Surgery - right foot, Hx Tonsillectomy - Immunizations Immunizations up to date: Yes Hx Diphtheria, Pertussis, Tetanus Vaccination: Yes Physical Exam - Vital signs Vitals: Temp Pulse Resp BP Pulse Ox 97.8 F 95 22 H 139/105 H 97 07/30/17 13:10 07/30/17 13:10 07/30/17 13:10 07/30/17 13:10 07/30/17 13:10 Course - Vital Signs Vital signs: Temp Pulse Resp BP Pulse Ox 97.8 F 95 22 H 139/105 H 97 07/30/17 13:10 07/30/17 13:10 07/30/17 13:10 07/30/17 13:10 07/30/17 13:10
[2017-07-30] MEDS ORDERED: MORPHINE SULFATE 10 MG/ML INJ IM ONE (15:05)
--- NOTE | 2017-07-30 16:23 | RADIOLOGY REPORT (SQ) ---
EXAM DESCRIPTION: CT HEAD WITHOUT COMPLETED DATE/TIME: 07/30/2017 4:14 pm REASON FOR STUDY: syncope/pain COMPARISON: 09/07/2015 TECHNIQUE: Axial images acquired through the brain without intravenous contrast. Images reviewed wi th bone, brain and subdural windows. Additional sagittal and coronal reconstructions were generated. Images stored on PACS. All CT scanners at this facility use dose modulation, iterative reconstruction, and/or weight based d osing when appropriate to reduce radiation dose to as low as reasonably achievable (ALARA). [facility]: Dose Right [facility]: CareDose [facility]: Dose Right [facility]: Teradose 4D [facility]: Locationary RADIATION DOSE: CT Rad equipment meets quality standard of care and radiation dose reduction techniq ues were employed. CTDIvol: 53.2 mGy. DLP: 884 mGy-cm. mGy. LIMITATIONS: None. FINDINGS: VENTRICLES: Normal size and contour. CEREBRUM: No masses. No hemorrhage. No midline shift. No evidence for acute infarction. Normal gra y/white matter differentiation. No areas of low density in the white matter. CEREBELLUM: No masses. No hemorrhage. No alteration of density. No evidence for acute infarction. EXTRAAXIAL SPACES: No fluid collections. No masses. ORBITS AND GLOBE: No intra- or extraconal masses. Normal contour of globe without masses. CALVARIUM: No fracture. PARANASAL SINUSES: No fluid or mucosal thickening. SOFT TISSUES: No mass or hematoma. OTHER: No other significant finding. IMPRESSION: NORMAL BRAIN CT WITHOUT CONTRAST. EVIDENCE OF ACUTE STROKE: NO. COMMENT: Quality ID # [id number]: Final reports with documentation of one or more dose reduction techniques (e.g., Automated exposure control, adjustment of the mA and/or kV according to patient size, use of iterative reconstruction technique) TECHNICAL DOCUMENTATION: JOB ID: [id number] [employer]- All Rights Reserved Reading location - IP/workstation name: [email or web address]
--- NOTE | 2017-07-30 16:24 | RADIOLOGY REPORT (SQ) ---
EXAM DESCRIPTION: CT CERVICAL SPINE WITHOUT COMPLETED DATE/TIME: 07/30/2017 4:13 pm REASON FOR STUDY: syncope/pain COMPARISON: None. TECHNIQUE: Axial images acquired through the cervical spine without intravenous contrast. Images re viewed with lung, soft tissue and bone windows. Reconstructed coronal and sagittal MPR images review ed. Images stored on PACS. All CT scanners at this facility use dose modulation, iterative reconstruction, and/or weight based d osing when appropriate to reduce radiation dose to as low as reasonably achievable (ALARA). [facility]: Dose Right [facility]: CareDose [facility]: Dose Right [facility]: Teradose 4D [facility]: Soxiable RADIATION DOSE: CT Rad equipment meets quality standard of care and radiation dose reduction techniq ues were employed. CTDIvol: 36.4 mGy. DLP: 667 mGy-cm. mGy. LIMITATIONS: Motion. FINDINGS: ALIGNMENT: Anatomic. MINERALIZATION: Normal. VERTEBRAL BODIES: No fractures or dislocation. DISCS: No significant disc disease. FACETS, LATERAL MASSES, POSTERIOR ELEMENTS: No fractures. No dislocation. No acute findings. HARDWARE: None in the spine. VISUALIZED RIBS: No fractures. LUNG APICES AND SOFT TISSUES: No significant or acute findings. OTHER: No other significant finding. IMPRESSION: NO ACUTE OR SIGNIFICANT FINDINGS IN THE CERVICAL SPINE. TECHNICAL DOCUMENTATION: JOB ID: [id number] Quality ID # [id number]: Final reports with documentation of one or more dose reduction techniques (e.g., Au tomated exposure control, adjustment of the mA and/or kV according to patient size, use of iterative reconstruction technique) 2010 [employer]- All Rights Reserved Reading location - IP/workstation name: [facility]
--- NOTE | 2017-07-30 16:28 | RADIOLOGY REPORT (SQ) ---
EXAM DESCRIPTION: FOOT RIGHT COMPLETE COMPLETED DATE/TIME: 07/30/2017 4:18 pm REASON FOR STUDY: syncope/pain COMPARISON: 05/25/2015. NUMBER OF VIEWS: Three views. TECHNIQUE: AP, lateral and oblique radiographic images acquired of the right foot. LIMITATIONS: None. FINDINGS: MINERALIZATION: Normal. BONES: No acute fracture or dislocation. Stable hardware in the 1st metatarsal. No worrisome bone l esions. JOINTS: No effusions. SOFT TISSUES: Dorsal soft tissue swelling. No foreign body. OTHER: No other significant finding. IMPRESSION: DORSAL SOFT TISSUE SWELLING. STABLE HARDWARE IN THE 1ST METATARSAL. NO ACUTE BONY FIND INGS. TECHNICAL DOCUMENTATION: JOB ID: [id number] [facility] [place]- All Rights Reserved Reading location - IP/workstation name: [email or web address]
[2017-07-30 17:00] LABS: APPEARANCE,URINE CLEAR; BILIRUBIN,URINE NEGATIVE (NEGATIVE); COLOR,URINE STRAW; GLUCOSE, URINE NEGATIVE (NEGATIVE); KETONES,URINE NEGATIVE (NEGATIVE); LEUKOCYTE ESTERASE,URINE NEGATIVE (NEGATIVE); NITRITE,URINE NEGATIVE (NEGATIVE); PROTEIN,URINE NEGATIVE (NEGATIVE); URINE SPECIFIC GRAVITY 1.008; UROBILINOGEN,URINE NEGATIVE mg/dL (<2.0)
[2017-07-30 17:11] LABS: ABSOLUTE LYMPHOCYTES (AUTO) 1.2 10^3/uL (0.5-4.7); ABSOLUTE MONOCYTES (AUTO) 0.5 10^3/uL (0.1-1.4); ABSOLUTE NEUT (AUTO) 10.6 10^3/uL (1.7-8.2); BASOPHILS % (AUTO) 0.2 % (0-2); HEMATOCRIT 33.6 % (36.0-47.0); HEMOGLOBIN 10.4 g/dL (12.0-15.5); LYMPHOCYTES % (AUTO) 9.7 % (13-45); MEAN CORPUSCULAR HEMOGLOBIN 24.4 pg (27.0-33.4); MEAN CORPUSCULAR HGB CONC 30.9 g/dL (32.0-36.0); MEAN CORPUSCULAR VOLUME 79 fl (80-97); PLATELET COUNT 357 10^3/uL (150-450); RED BLOOD COUNT 4.26 10^6/uL (3.72-5.28); RED CELL DISTRIBUTION WIDTH 19.7 % (11.5-14.0); SEGMENTED NEUTROPHILS % (AUTO) 86.1 % (42-78); TOTAL CELLS COUNTED % (AUTO) 100 %; WHITE BLOOD COUNT 12.3 10^3/uL (4.0-10.5)
[2017-07-30 17:26] LABS: ALANINE AMINOTRANSFERASE 53 U/L (9-52); ALBUMIN 3.7 g/dL (3.5-5.0); ALKALINE PHOSPHATASE 75 U/L (38-126); ANION GAP 10 (5-19); ASPARTATE AMINO TRANSFERASE 31 U/L (14-36); BLOOD UREA NITROGEN 10 mg/dL (7-20); CALCIUM 9.3 mg/dL (8.4-10.2); CARBON DIOXIDE 32 mmol/L (22-30); CHLORIDE 102 mmol/L (98-107); GLUCOSE 110 mg/dL (75-110); POTASSIUM 3.7 mmol/L (3.6-5.0); SODIUM 144.2 mmol/L (137-145); TOTAL PROTEIN 6.5 g/dL (6.3-8.2)
[2017-07-30 17:27] LABS: BILIRUBIN,TOTAL < 0.1 mg/dL (0.2-1.3)
--- NOTE | 2017-07-30 17:54 | ER Document Report ---
ED Syncope and Near Syncope - General Chief Complaint: Syncope Stated Complaint: SYNCOPE Time Seen by Provider: 07/30/17 14:34 Mode of Arrival: Ambulatory Notes: The patient is a 27-year-old female, past medical history anxiety, presents from the [facility] parking lot after she had a presyncopal episode today and hit the back of her head. She is complaining of a headache, neck pain and right foot pain where she landed on her foot. Patient has had daily syncopal episodes for the past 5 months. She has seen multiple specialist already and has an appointment with a new [facility] winder in [facility] tomorrow. Patient denies chest pain, shortness of breath, nausea, vomiting, abdominal pain, focal weakness, numbness, tingling, blurry vision, drug abuse or back pain. TRAVEL OUTSIDE OF THE [place] IN LAST 30 DAYS: No - Related Data Allergies/Adverse Reactions: latex [Latex] Allergy (Intermediate, Verified 07/16/17 09:35) redness/blisters steroids,oral Allergy (Uncoded 07/18/17 11:58) Past Medical History - General Information source: Patient - Social History Smoking Status: Current Every Day Smoker Chew tobacco use (# tins/day): No Frequency of alcohol use: None Drug Abuse: None Family History: Arthritis, CAD, DM, Hyperlipidemia, Hypertension, Thyroid Disfunction, Other - Sarcoidosis Patient has suicidal ideation: No Patient has homicidal ideation: No - Past Medical History Cardiac Medical History: Reports: Hx Hypertension Pulmonary Medical History: Neurological Medical History: Reports: Hx Migraine Renal/ Medical History: Reports: Hx Ovarian Cysts. Denies: Hx Peritoneal Dialysis GI Medical History: Denies: Hx Hepatitis Musculoskeltal Medical History: Reports Hx Fibromyalgia, Reports Hx Musculoskeletal Trauma Psychiatric Medical History: Reports: Hx Anxiety, Hx Depression Infectious Medical History: Denies: Hx Hepatitis Past Surgical History: Reports: Hx Appendectomy, Hx Section, Hx Cholecystectomy, Hx Orthopedic Surgery - right foot, Hx Tonsillectomy - Immunizations Immunizations up to date: Yes Hx Diphtheria, Pertussis, Tetanus Vaccination: Yes Review of Systems - Review of Systems Notes: REVIEW OF SYSTEMS: CONSTITUTIONAL: -fevers, -chills EENT: -eye pain, -difficulty swallowing, -nasal congestion CARDIOVASCULAR: -chest pain, -syncope. RESPIRATORY: -cough, -SOB GASTROINTESTINAL: -abdominal pain, -nausea, -vomiting, -diarrhea GENITOURINARY: -dysuria, -hematuria MUSCULOSKELETAL: +right foot pain, -back pain, +neck pain SKIN: -rash or skin lesions. HEMATOLOGIC: -easy bruising or bleeding. LYMPHATIC: -swollen, enlarged glands. NEUROLOGICAL: -altered mental status or loss of consciousness, +headache, - neurologic symptoms PSYCHIATRIC: +anxiety, -depression. ALL OTHER SYSTEMS REVIEWED AND NEGATIVE. Physical Exam - Vital signs Vitals: Temp Pulse Resp BP Pulse Ox 97.8 F 95 22 H 139/105 H 97 07/30/17 13:10 07/30/17 13:10 07/30/17 13:10 07/30/17 13:10 07/30/17 13:10 - Notes Notes: PHYSICAL EXAMINATION: GENERAL: Well-appearing, well-nourished and in no acute distress. HEAD: Atraumatic, normocephalic. EYES: Pupils equal round and reactive to light, extraocular movements intact, sclera anicteric, conjunctiva are normal. ENT: nares patent, oropharynx clear without exudates. Moist mucous membranes. NECK: Normal range of motion, supple without lymphadenopathy LUNGS: Breath sounds clear to auscultation bilaterally and equal. No wheezes rales or rhonchi. HEART: Regular rate and rhythm without murmurs ABDOMEN: Soft, nontender, normoactive bowel sounds. No guarding, no rebound. No masses appreciated. EXTREMITIES: Mild swelling over dorsal surface of right foot. Normal range of motion, no pitting or edema. No cyanosis. NEUROLOGICAL: Cranial nerves grossly intact. Normal speech. Normal sensory and motor exams. PSYCH: Normal mood, normal affect. SKIN: Warm, Dry, normal turgor, no rashes or lesions noted. Course - Re-evaluation Re-evalutation: Patient appears well. Her head CT and C-spine CT do not show any evidence of skull fractures, brain bleeds or C-spine fractures. Her foot x-ray also does not show any acute fractures. Blood work is unremarkable and patient has not had any concerning arrhythmias while on the monitor. Patient has had daily syncopal episodes for the past 5 months and has seen multiple specialists. She has an appointment with a new [facility] winder tomorrow in [facility]. Using the [place] Syncope Guidelines, she is in the low risk category for serious syncopal causes and is safe for outpatient follow-up for these syncopal events. She is PERC negative. Mom and patient are upset that an answer could not be found today in the ER. Instructed them to continue the outpatient work-up , as the ER's purpose is to rule-out life-threatening causes. Pt is requesting a refill of her Xanax that she received when she was admitted in [place] a few days ago. Since patient already has a mental health team, she will obtain any anxiety medications at [facility] and not from the ER. Given strict return precautions and she understands. - Vital Signs Vital signs: Temp Pulse Resp BP Pulse Ox 97.8 F 95 10 L 131/76 H 96 07/30/17 13:10 07/30/17 13:10 07/30/17 18:02 07/30/17 18:02 07/30/17 18:02 - Laboratory Result Diagrams: 07/30/17 16:55 07/30/17 16:55 Laboratory results interpreted by me: 07/30/17 07/30/17 16:55 16:55 WBC 12.3 H Hgb 10.4 L Hct 33.6 L MCV 79 L MCH 24.4 L MCHC 30.9 L RDW 19.7 H Seg Neutrophils % 86.1 H Lymphocytes % 9.7 L Absolute Neutrophils 10.6 H Carbon Dioxide 32 H Total Bilirubin < 0.1 L ALT 53 H - Diagnostic Test Radiology reviewed: Image reviewed, Reports reviewed Radiology results interpreted by me: CT Head and C-spine: NAD Right foot x-ray: Soft tissue swelling without acute fractures. - EKG Interpretation by Me EKG shows normal: Sinus rhythm, [place], Intervals, QRS Complexes, ST-T Waves Rate: Normal Discharge - Discharge Clinical Impression: Syncope Qualifiers: Syncope type: unspecified Qualified Code(s): R55 - Syncope and collapse Head contusion Qualifiers: Encounter type: initial encounter Contusion of head detail: scalp Qualified Code(s): S00.03XA - Contusion of scalp, initial encounter Condition: Stable Disposition: HOME, SELF-CARE Additional Instructions: Your workup for emergent causes of syncope at this time was negative. Keep your appointment with cardiology tomorrow. To discuss management of your anxiety, talk to your provider at [facility]. SYNCOPAL EPISODE: Syncope (fainting or near-fainting) can occur from many different health problems. Or it can be a simple fainting spell requiring no treatment. It is safe for you to go home, but further evaluation will likely be necessary. Your work-up may include tests for internal bleeding, heart disease, medication problems, or near-strokes. Tests are not always required, however, depending on the nature of your problem. The warning signs of an impending faint include: dizziness, lightheadedness , nausea, hot flashes, tingling, and weakness. If this happens, lay down and put your feet up, then wait until all of these symptoms have passed before standing up again. If these episodes become recurrent, or if you develop chest pain, heart palpitations, mental confusion, blurred vision, or headache, then you should call the physician, or go to the emergency room. ALTERED MENTAL STATUS: An altered mental status is a change in the normal functioning of the brain. This alteration of function can range from minor decreased brain function with some forgetfulness and confusion to complete loss of consciousness and coma. There are many possible causes of an altered mental status and include brain injuries such as trauma or strokes, problems with oxygen supply to the brain, fever and infections of the brain and/or elsewhere in the body, metabolic abnormalities such as low or high blood sugar, overdoses or excessive medication ingestion, and mental and psychiatric illnesses. Sometimes the altered mental status resolves and a definite cause is not determined. If a cause for your altered mental status was found, it has likely been corrected. Your evaluation has not shown any condition that requires that you be admitted to the hospital. It is believed that you are safe to lelave and return to your home. If you have a return of your symptoms, you should return for re-evaluation. NORMAL EXAM AND WORKUP: At this time, your examination and workup show no significant abnormality. No significant abnormal physical findings were noted. All laboratory, EKG, and imaging (x-ray, CT scans, ultrasound) studies that were ordered show no significant abnormality. Although your examination and all studies that were ordered showed no significant abnormal finding, there are no examinations and no studies that are 100% accurate. There is always the possibility that some abnormality could exist and not be detected with physical examination or within the limits and capabilities of laboratory and other studies. You should return or follow up as you were instructed on your visit today for further evaluation if your symptoms do not resolve. FOLLOW-UP CARE: If you have been referred to a physician for follow-up care, call the physician s office for an appointment as you were instructed or within the next two days. If you experience worsening or a significant change in your symptoms, notify the physician immediately or return to the Emergency Department at any time for re-evaluation. Contusion Your injury has resulted in a contusion -- a crushing of the deep tissues. No injury to important structures was detected during the physician's exam. Contusions vary in the amount of pain they cause, and in the length of time required for healing. Typically, the area will become bruised, and will remain painful to touch for two or three weeks. However, most patients are back to working and playing within a few days. After the initial period of rest and cold-packs, your symptoms (together with the doctor's recommendations) will determine how rapidly you can get back to full activity. Usually this means "do what feels okay, but don't do things that hurt." If re-examination was recommended, it's important to follow up as instructed. Call the doctor or return any time if pain increases, if swelling becomes severe, if you develop numbness or weakness in an injured extremity, or if any other alarming symptoms occur. Anxiety The physician feels that some of your health problems are being caused by anxiety. Anxiety affects your health in many ways. Anxiety alone can cause palpitations, sweats, chest pains, abdominal pains, shortness of breath, and headaches. It contributes to ulcer disease, high blood pressure, irritable bowel syndrome, and has been shown to cause flare-ups of many other diseases. Anxiety is not a simple disorder to treat. If the anxiety is due to recent life stresses, you may simply need time to "work through" the changes. If the anxiety is due to an underlying unhappiness with yourself or due to psychiatric disturbance, professional help will be needed. Your physician can refer you for further help if needed. Anti-anxiety medication is occasionally given if the stress is acute or if you are having trouble sleeping. Chronic or frequent use of these medications is not a good idea because the body becomes reliant on it, preventing you from dealing with life's normal stresses. Prescriptions: Naproxen [Naprosyn 250 mg Tablet] 500 mg PO Q12H PRN #14 tablet PRN Reason: Forms: Elevated Blood Pressure Referrals: [facility] [Provider Group] - Follow up as needed
[2017-07-30 18:05] VITALS: BP 131/76
--- NOTE | 2017-07-30 19:42 | EKG REPORT ---
SEVERITY:- BORDERLINE ECG - SINUS RHYTHM INFERIOR Q WAVES, PROBABLY NORMAL VARIATION : Confirmed by: Elton Hugo MD 30-Jul-2017 19:41:20
== END 2017-07-30 18:13 | disposition home or self-care (01) ==
LOC: ER 12:49
DX: R55 Syncope and collapse (principal); S00.03XA Contusion of scalp, initial encounter; R51 Headache; M54.2 Cervicalgia; M79.671 Pain in right foot; M79.89 Other specified soft tissue disorders; W19.XXXA Unspecified fall, initial encounter; Y93.89 Activity, other specified; Y92.481 Parking lot as the place of occurrence of the external cause; F41.9 Anxiety disorder, unspecified; I10 Essential (primary) hypertension; F17.200 Nicotine dependence, unspecified, uncomplicated; Z91.040 Latex allergy status; Z88.8 Allergy status to other drugs, medicaments and biological substances
CPT/HCPCS: 93005; 99285; 96372; 36415; 85025; 81025; 80053; 81001; 73630; 70450; 72125; 93010; J2270

== ENCOUNTER 2017-08-04 12:03 | Emergency (ER) | payer MEDICAID ==
--- NOTE | 2017-08-04 12:32 | ER Document Report ---
ED Medical Screen (RME) - General Chief Complaint: Pain All Over Stated Complaint: BODY SWELLING Time Seen by Provider: 08/04/17 12:29 Notes: Patient says she is experiencing a sarcoid flareup. She says that she is short of breath all the time, but worse now. She is having pains everywhere, including her arms, hands, feet, everywhere. She has been seeing a specialist at [facility] in [place] but is in the process of switching to see a specialist at [facility] internal medicine in [facility]. She takes a muscle relaxer for her sarcoid relief. She was diagnosed a little over a year ago. She has been told she also has asthma. Smokes cigarettes. Patient has a nicotine patch on her left upper shoulder. She has a couple of bandages of her right lower face which she says are due to sores from the sarcoidosis which gets secondarily infected. Not on any medication for these lesions. Patient has a history of depression and PTSD. TRAVEL OUTSIDE OF THE [place] IN LAST 30 DAYS: No - Related Data Allergies/Adverse Reactions: latex [Latex] Allergy (Intermediate, Verified 08/04/17 12:04) redness/blisters Past Medical History - Social History Chew tobacco use (# tins/day): No - Past Medical History Cardiac Medical History: Reports: Hx Hypertension Pulmonary Medical History: Neurological Medical History: Reports: Hx Migraine Renal/ Medical History: Reports: Hx Ovarian Cysts. Denies: Hx Peritoneal Dialysis GI Medical History: Denies: Hx Hepatitis Musculoskeltal Medical History: Reports Hx Fibromyalgia, Reports Hx Musculoskeletal Trauma Psychiatric Medical History: Reports: Hx Anxiety, Hx Depression Infectious Medical History: Denies: Hx Hepatitis Past Surgical History: Reports: Hx Appendectomy, Hx Section, Hx Cholecystectomy, Hx Orthopedic Surgery - right foot, Hx Tonsillectomy - Immunizations Immunizations up to date: Yes Hx Diphtheria, Pertussis, Tetanus Vaccination: Yes Physical Exam - Vital signs Vitals: Temp Pulse Resp BP Pulse Ox 98.4 F 110 H 18 106/78 93 08/04/17 12:14 08/04/17 12:14 08/04/17 12:14 08/04/17 12:14 08/04/17 12:14 Course - Vital Signs Vital signs: Temp Pulse Resp BP Pulse Ox 98.4 F 110 H 18 106/78 93 08/04/17 12:14 08/04/17 12:14 08/04/17 12:14 08/04/17 12:14 08/04/17 12:14
[2017-08-04 13:10] LABS: AMORPHOUS SEDIMENT,URINE TRACE /HPF; APPEARANCE,URINE TURBID; BILIRUBIN,URINE NEGATIVE (NEGATIVE); COLOR,URINE YELLOW; GLUCOSE, URINE NEGATIVE (NEGATIVE); KETONES,URINE NEGATIVE (NEGATIVE); LEUKOCYTE ESTERASE,URINE TRACE (NEGATIVE); NITRITE,URINE NEGATIVE (NEGATIVE); PROTEIN,URINE NEGATIVE (NEGATIVE); URINE SPECIFIC GRAVITY 1.011; UROBILINOGEN,URINE NEGATIVE mg/dL (<2.0)
[2017-08-04 13:12] LABS: ABSOLUTE EOSINOPHILS # (AUTO) 0.3 10^3/uL (0.0-0.6); ABSOLUTE LYMPHOCYTES (AUTO) 2.4 10^3/uL (0.5-4.7); ABSOLUTE MONOCYTES (AUTO) 0.4 10^3/uL (0.1-1.4); ABSOLUTE NEUT (AUTO) 6.1 10^3/uL (1.7-8.2); BASOPHILS % (AUTO) 0.3 % (0-2); EOSINOPHILS % (AUTO) 2.9 % (0-6); HEMATOCRIT 30.5 % (36.0-47.0); HEMOGLOBIN 9.7 g/dL (12.0-15.5); LYMPHOCYTES % (AUTO) 25.8 % (13-45); MEAN CORPUSCULAR HEMOGLOBIN 24.9 pg (27.0-33.4); MEAN CORPUSCULAR HGB CONC 31.8 g/dL (32.0-36.0); MEAN CORPUSCULAR VOLUME 78 fl (80-97); MONOCYTES % (AUTO) 4.8 % (3-13); PLATELET COUNT 323 10^3/uL (150-450); RED BLOOD COUNT 3.89 10^6/uL (3.72-5.28); RED CELL DISTRIBUTION WIDTH 19.3 % (11.5-14.0); SEGMENTED NEUTROPHILS % (AUTO) 66.2 % (42-78); TOTAL CELLS COUNTED % (AUTO) 100 %; WHITE BLOOD COUNT 9.2 10^3/uL (4.0-10.5)
--- NOTE | 2017-08-04 13:22 | RADIOLOGY REPORT (SQ) ---
EXAM DESCRIPTION: CHEST 2 VIEWS COMPLETED DATE/TIME: 08/04/2017 1:02 pm REASON FOR STUDY: Shortness of breath, Hx sarcoid COMPARISON: Two-view chest 06/25/2017 EXAM PARAMETERS: NUMBER OF VIEWS: two views TECHNIQUE: Digital Frontal and Lateral radiographic views of the chest acquired. RADIATION DOSE: NA LIMITATIONS: none FINDINGS: LUNGS AND PLEURA: No opacities, masses or pneumothorax. No pleural effusion. MEDIASTINUM AND HILAR STRUCTURES: No masses or contour abnormalities. HEART AND VASCULAR STRUCTURES: Heart normal size. No evidence for failure. BONES: No acute findings. HARDWARE: Clips right upper quadrant post cholecystectomy. Cardiac monitoring device over the left u pper anterior chest OTHER: No other significant finding. IMPRESSION: NO ACUTE RADIOGRAPHIC FINDING IN THE CHEST. TECHNICAL DOCUMENTATION: JOB ID: [id number] [employer]- All Rights Reserved Reading location - IP/workstation name: [email or web address]
[2017-08-04 13:32] LABS: ALANINE AMINOTRANSFERASE 87 U/L (9-52); ALBUMIN 3.4 g/dL (3.5-5.0); ALKALINE PHOSPHATASE 82 U/L (38-126); ANION GAP 8 (5-19); ASPARTATE AMINO TRANSFERASE 91 U/L (14-36); BILIRUBIN,DIRECT 0.3 mg/dL (0.0-0.4); BILIRUBIN,TOTAL 0.3 mg/dL (0.2-1.3); BLOOD UREA NITROGEN 8 mg/dL (7-20); CALCIUM 9.3 mg/dL (8.4-10.2); CARBON DIOXIDE 35 mmol/L (22-30); CHLORIDE 97 mmol/L (98-107); GLUCOSE 106 mg/dL (75-110); POTASSIUM 3.5 mmol/L (3.6-5.0); SODIUM 139.9 mmol/L (137-145)
[2017-08-04] MEDS ORDERED: PROMETHAZINE HCL INJ 50 MG/1 ML VIAL IM PRN (14:18)
[2017-08-04] MEDS ORDERED: HYDROMORPHONE HCL INJ/PF 2 MG/ML AMPULE IV ONE (14:18)
--- NOTE | 2017-08-04 15:45 | ER Document Report ---
ED General - General Chief Complaint: Pain All Over Stated Complaint: BODY SWELLING Time Seen by Provider: 08/04/17 12:29 Information source: Patient Notes: History of complain: Patient says she is experiencing a sarcoid flareup. She says that she is short of breath all the time, but worse now. She is having pains everywhere, including her arms, hands, feet, everywhere. She has been seeing a specialist at [facility] in [place] but is in the process of switching to see a specialist at [facility] in [facility]. She takes a muscle relaxer for her sarcoid relief. She was diagnosed a little over a year ago. She has been told she also has asthma. Smokes cigarettes. REVIEW OF SYSTEMS: CONSTITUTIONAL : Denies fever, chills, or sweats. Denies recent illness. EENT: Denies eye, ear, throat, or mouth pain or symptoms. Denies nasal or sinus congestion or discharge. Denies throat, tongue, or mouth swelling or difficulty swallowing. CARDIOVASCULAR: Denies chest pain. Denies palpitations or racing or irregular heart beat. Denies ankle edema. RESPIRATORY: Denies cough, cold, or chest congestion. Denies shortness of breath, difficulty breathing, or wheezing. GASTROINTESTINAL: Denies abdominal pain or distention. Denies nausea, vomiting , or diarrhea. Denies blood in vomitus, stools, or per rectum. Denies black, tarry stools. Denies constipation. GENITOURINARY: Denies difficulty urinating, painful urination, burning, frequency, blood in urine, or discharge. FEMALE GENITOURINARY: Denies vaginal bleeding, heavy or abnormal periods, irregular periods. Denies vaginal discharge or odor. MUSCULOSKELETAL: Pain swelling and stiffness in all joints. SKIN: Denies rash, lesions or sores. HEMATOLOGIC : Denies easy bruising or bleeding. LYMPHATIC: Denies swollen, enlarged glands. NEUROLOGICAL: Denies confusion or altered mental status. Denies passing out or loss of consciousness. Denies dizziness or lightheadedness. Denies headache. Denies weakness or paralysis or loss of use of either side. Denies problems with gait or speech. Denies sensory loss, numbness, or tingling. Denies seizures. PSYCHIATRIC: Denies anxiety or stress. Denies depression, suicidal ideation, or homicidal ideation. ALL OTHER SYSTEMS REVIEWED AND NEGATIVE. PHYSICAL EXAMINATION: GENERAL: Morbid obesity, mild to moderate discomfort HEAD: Atraumatic, normocephalic. EYES: Pupils equal round and reactive to light, extraocular movements intact, conjunctiva are normal. ENT: Nares patent, oropharynx clear without exudates. Moist mucous membranes. Facial rash noted in 2 places. Which was erythematous. Not warm or tender. NECK: Normal range of motion, supple without lymphadenopathy LUNGS: Breath sounds clear to auscultation bilaterally and equal. No wheezes rales or rhonchi. No rales or wheezing HEART: Regular rate and rhythm without murmurs ABDOMEN: Soft, nontender, nondistended abdomen. No guarding, no rebound. No masses appreciated. Female : deferred Musculoskeletal: Range of motion is limited for the joints due to pain as well as swelling. Bilateral lower leg edema, nonpitting, over the feet mild erythema noted. Is slightly warm to touch. NEUROLOGICAL: Cranial nerves grossly intact. Normal speech, normal gait. Normal sensory, motor exams PSYCH: Normal mood, normal affect. SKIN: Warm, Dry, normal turgor, no rashes or lesions noted. Dictation was performed using [employer] voice recognition software history of complain TRAVEL OUTSIDE OF THE [place] IN LAST 30 DAYS: No - HPI Onset: Other - Long-standing Quality of pain: Achy, Sharp Severity: Moderate Pain Level: 3 Associated symptoms: Chills, Nonproductive cough, Weakness. denies: None, Allergy/hay fever, Body/muscle aches, Chest pain, Productive cough, Diarrhea, Drooling, Earache, Fever, Headache, Hoarseness, Hurts to breath, Leg swelling, Nausea, Vomiting, Rhinnorhea, Sinus pain/drainage, Shortness of breath, Slow to respond, Sore throat, Sweating, Other Exacerbated by: Movement, Coughing - On and off yellow-green sputum, Deep breathing. denies: Denies, Supine, Sitting, Standing, Walking, Food, Other Relieved by: denies: Denies, Supine, Sitting, Standing, Remaining still, Antacids, Food, Other Similar symptoms previously: Yes Recently seen / treated by doctor: Yes - Treated with antibiotic and prednisone - Related Data Allergies/Adverse Reactions: latex [Latex] Allergy (Intermediate, Verified 08/04/17 12:04) redness/blisters Past Medical History - Social History Smoking Status: Current Every Day Smoker Chew tobacco use (# tins/day): No Frequency of alcohol use: Rare Drug Abuse: denies: None, Bath salts, Cocaine, Heroin, Marijuana, Methamphetamine, Prescription drugs, Other Lives with: Alone, Family, Parents, Spouse/Significant other, Friend, Grandparent(s), Guardian, Homeless, [facility], Other Family History: Arthritis, CAD, DM, Hyperlipidemia, Hypertension, Thyroid Disfunction, Other - Sarcoidosis Patient has suicidal ideation: No Patient has homicidal ideation: No - Past Medical History Cardiac Medical History: Reports: Hx Hypertension Pulmonary Medical History: Neurological Medical History: Reports: Hx Migraine Renal/ Medical History: Reports: Hx Ovarian Cysts. Denies: Hx Peritoneal Dialysis Malignancy Medical History: Denies: None, Hx Bone Cancer, Hx Brain Cancer, Hx Breast Cancer, Hx Cervical Cancer, Hx Colorectal Cancer, Hx Leukemia, Hx Liver Cancer, Hx Lung Cancer, Hx Lymphoma, Hx Ovarian Cancer, Hx Pancreatic Cancer, Hx Renal (Kidney) Cancer, Hx Skin Cancer, Other Musculoskeltal Medical History: Reports Hx Fibromyalgia, Reports Hx Musculoskeletal Trauma Psychiatric Medical History: Reports: Hx Anxiety, Hx Depression Infectious Medical History: Denies: Hx Hepatitis Past Surgical History: Reports: Hx Appendectomy, Hx Section, Hx Cholecystectomy, Hx Orthopedic Surgery - right foot, Hx Tonsillectomy - Immunizations Immunizations up to date: Yes Hx Diphtheria, Pertussis, Tetanus Vaccination: Yes Review of Systems - Review of Systems Constitutional: Chills. denies: No symptoms reported, See HPI, Diaphoresis, Fever, Malaise, Weakness, Other, Weight gain, Weight loss, Recent illness EENT: denies: No symptoms reported, See HPI, Eye pain, Eye discharge, Blurred vision, Tearing, Double vision, Ear pain, Ear discharge, Nose pain, Nose congestion, Nose discharge, Sinus pressure, Sinus discharge, Throat pain, Difficulty swallowing, Throat swelling, Mouth pain, Mouth swelling, Dental problem, Vertigo, Other Cardiovascular: denies: No symptoms reported, See HPI, Chest pain, Palpitations , Heart racing, Orthopnea, Dyspnea, Syncope, Dizziness, Lightheaded, Edema, Other, Paroxysmal Nocturnal Dysp Respiratory: See HPI Gastrointestinal: denies: No symptoms reported, See HPI, Abdomen distended, Abdominal pain, Diarrhea, Nausea, Vomiting, Constipation, Blood streaked bowels , Poor appetite, Poor fluid intake, Blood in vomit, Black stools, Rectal bleeding, Last bowel movement, Fecal incontinence, Other Genitourinary: denies: No symptoms reported, See HPI, Burning, Dysuria, Discharge, Frequency, Flank pain, Hematuria, Incontinence, Pain, Urgency, Retention, Other Musculoskeletal: See HPI Skin: See HPI Hematologic/Lymphatic: denies: No symptoms reported, See HPI, Anemia, Blood clots, Easy bleeding, Easy bruising, Enlarged lymph nodes, Swollen glands, Other Neurological/Psychological: denies: No symptoms reported, See HPI, Confusion, Dementia, Depression, Hallucinations, Anxiety, Homicidal ideation, Sensory change, Weakness, Gait changes, Loss of power, Paralysis, Seizure, Lost consciousness, Headaches, Speech impairment, Numbness, Suicidal ideation, Tingling, Tremor, Other Physical Exam - Vital signs Vitals: Temp Pulse Resp BP Pulse Ox 98.4 F 110 H 18 106/78 93 08/04/17 12:14 08/04/17 12:14 08/04/17 12:14 08/04/17 12:14 08/04/17 12:14 - Notes Notes: Dictated Course - Re-evaluation Re-evalutation: 08/04/17 16:02 Patient feels much better, crease, she had few questions which I answered. She is happy to go home. - Vital Signs Vital signs: Temp Pulse Resp BP Pulse Ox 98.4 F 110 H 18 106/78 93 08/04/17 12:14 08/04/17 12:14 08/04/17 12:14 08/04/17 12:14 08/04/17 12:14 - Laboratory Result Diagrams: 08/04/17 12:45 08/04/17 12:45 Laboratory results interpreted by me: 08/04/17 08/04/17 08/04/17 12:45 12:45 12:45 Hgb 9.7 L Hct 30.5 L MCV 78 L MCH 24.9 L MCHC 31.8 L RDW 19.3 H Potassium 3.5 L Chloride 97 L Carbon Dioxide 35 H AST 91 H ALT 87 H Total Protein 6.0 L Albumin 3.4 L Ur Leukocyte Esterase TRACE H Discharge - Discharge Clinical Impression: Sarcoidosis, Chronic pain syndrome Sleep apnea Qualifiers: Sleep apnea type: obstructive Qualified Code(s): G47.33 - Obstructive sleep apnea (adult) (pediatric) Condition: Fair Disposition: HOME, SELF-CARE Instructions: Pain Management Prescriptions: Hydrocodone/Acetaminophen [Vicodin 5-300 mg Tablet] 1 - 2 tab PO ASDIR PRN #15 tab PRN Reason:
[2017-08-04 16:46] VITALS: BP 111/58
== END 2017-08-04 16:54 | disposition home or self-care (01) ==
LOC: ER 12:03
DX: D86.9 Sarcoidosis, unspecified (principal); G89.4 Chronic pain syndrome; G47.33 Obstructive sleep apnea (adult) (pediatric); R06.02 Shortness of breath; J45.909 Unspecified asthma, uncomplicated; F17.210 Nicotine dependence, cigarettes, uncomplicated; E66.01 Morbid (severe) obesity due to excess calories; R21 Rash and other nonspecific skin eruption; R60.0 Localized edema; L53.9 Erythematous condition, unspecified; R68.83 Chills (without fever); R05 Cough; R53.1 Weakness; I10 Essential (primary) hypertension; Z91.040 Latex allergy status
CPT/HCPCS: 99283; 36415; 85025; 80053; 81001; 71046; J1170

== ENCOUNTER 2017-08-20 19:34 | Emergency (ER) | payer MEDICAID ==
--- NOTE | 2017-08-20 21:33 | ER Document Report ---
ED Medical Screen (RME) - General Chief Complaint: Pain All Over Stated Complaint: PAIN ALL OVER BODY Time Seen by Provider: 08/20/17 21:29 Notes: 27-year-old female with a history of sarcoidosis that reports pain over her body , mild shortness of breath, and early developing rash, she states she feels like she is having a sarcoid flare. She used to be on injections by rheumatology, she does have primary but is trying to get back to rheumatology, she was last on steroids and antibiotics last month, she is currently finishing Augmentin for a left breast infection. She states the infection is practically resolved. She continues to smoke. She states sitting down currently she does not feel short of breath. TRAVEL OUTSIDE OF THE [place] IN LAST 30 DAYS: No - Related Data Allergies/Adverse Reactions: latex [Latex] Allergy (Intermediate, Verified 08/04/17 12:04) redness/blisters Past Medical History - Social History Chew tobacco use (# tins/day): No Frequency of alcohol use: None Drug Abuse: None - Past Medical History Cardiac Medical History: Reports: Hx Hypertension Pulmonary Medical History: Neurological Medical History: Reports: Hx Migraine Renal/ Medical History: Reports: Hx Ovarian Cysts. Denies: Hx Peritoneal Dialysis Malignancy Medical History: Denies: Hx Bone Cancer, Hx Brain Cancer, Hx Breast Cancer, Hx Cervical Cancer, Hx Colorectal Cancer, Hx Leukemia, Hx Liver Cancer, Hx Lung Cancer, Hx Lymphoma, Hx Ovarian Cancer, Hx Pancreatic Cancer, Hx Renal ( Kidney) Cancer, Hx Skin Cancer GI Medical History: Denies: Hx Hepatitis Musculoskeltal Medical History: Reports Hx Fibromyalgia, Reports Hx Musculoskeletal Trauma Psychiatric Medical History: Reports: Hx Anxiety, Hx Depression Infectious Medical History: Denies: Hx Hepatitis Past Surgical History: Reports: Hx Appendectomy, Hx Section, Hx Cholecystectomy, Hx Orthopedic Surgery - right foot, Hx Tonsillectomy - Immunizations Immunizations up to date: Yes Hx Diphtheria, Pertussis, Tetanus Vaccination: Yes Physical Exam - Vital signs Vitals: Temp Pulse Resp BP Pulse Ox 99.1 F 98 16 133/105 H 96 08/20/17 20:19 08/20/17 20:19 08/20/17 20:19 08/20/17 20:19 08/20/17 20:19 - Respiratory Respiratory status: No respiratory distress Breath sounds: Normal. No: Decreased air movement, Wheezing - Abdominal Inspection: Normal Tenderness: Nontender. No: Tender, Guarding Course - Vital Signs Vital signs: Temp Pulse Resp BP Pulse Ox 99.1 F 98 16 133/105 H 96 08/20/17 20:19 08/20/17 20:19 08/20/17 20:19 08/20/17 20:19 08/20/17 20:19
[2017-08-20] MEDS ORDERED: HYDROCODONE/ACETAMINOPHEN 5-325 MG TABLET PO ONE (22:17)
--- NOTE | 2017-08-20 22:36 | RADIOLOGY REPORT (SQ) ---
EXAM DESCRIPTION: CHEST 2 VIEWS COMPLETED DATE/TIME: 08/20/2017 10:02 pm REASON FOR STUDY: shortness of breath COMPARISON: 08/04/2017 TECHNIQUE: Frontal and lateral radiographic views of the chest acquired. NUMBER OF VIEWS: Two view. LIMITATIONS: None. FINDINGS: LUNGS AND PLEURA: No opacities, masses or pneumothorax. No pleural effusion. MEDIASTINUM AND HILAR STRUCTURES: No masses or contour abnormalities. HEART AND VASCULAR STRUCTURES: Heart normal size. No evidence for failure. BONES: No acute findings. HARDWARE: None in the chest. OTHER: No other significant finding. IMPRESSION: NO SIGNIFICANT RADIOGRAPHIC FINDING IN THE CHEST. TECHNICAL DOCUMENTATION: JOB ID: [id number] [employer]- All Rights Reserved Reading location - IP/workstation name: [email or web address]
[2017-08-20 22:37] LABS: ABSOLUTE EOSINOPHILS # (AUTO) 0.6 10^3/uL (0.0-0.6); ABSOLUTE LYMPHOCYTES (AUTO) 2.1 10^3/uL (0.5-4.7); ABSOLUTE MONOCYTES (AUTO) 0.5 10^3/uL (0.1-1.4); ABSOLUTE NEUT (AUTO) 4.7 10^3/uL (1.7-8.2); BASOPHILS % (AUTO) 0.5 % (0-2); EOSINOPHILS % (AUTO) 7.6 % (0-6); HEMATOCRIT 32.1 % (36.0-47.0); HEMOGLOBIN 10.3 g/dL (12.0-15.5); LYMPHOCYTES % (AUTO) 26.7 % (13-45); MEAN CORPUSCULAR VOLUME 78 fl (80-97); MONOCYTES % (AUTO) 6.1 % (3-13); PLATELET COUNT 371 10^3/uL (150-450); RED CELL DISTRIBUTION WIDTH 19.8 % (11.5-14.0); SEGMENTED NEUTROPHILS % (AUTO) 59.1 % (42-78); TOTAL CELLS COUNTED % (AUTO) 100 %
[2017-08-20 22:53] LABS: ALANINE AMINOTRANSFERASE 49 U/L (9-52); ALBUMIN 3.8 g/dL (3.5-5.0); ALKALINE PHOSPHATASE 87 U/L (38-126); ANION GAP 9 (5-19); ASPARTATE AMINO TRANSFERASE 55 U/L (14-36); BILIRUBIN,DIRECT 0.2 mg/dL (0.0-0.4); BILIRUBIN,TOTAL 0.2 mg/dL (0.2-1.3); BLOOD UREA NITROGEN 6 mg/dL (7-20); CALCIUM 9.7 mg/dL (8.4-10.2); CARBON DIOXIDE 38 mmol/L (22-30); CHLORIDE 94 mmol/L (98-107); GLUCOSE 91 mg/dL (75-110); SODIUM 140.5 mmol/L (137-145); TOTAL PROTEIN 6.8 g/dL (6.3-8.2)
[2017-08-20] MEDS ORDERED: POTASSIUM CHLORIDE 10 MEQ TABLET.SA PO ONE (23:29)
[2017-08-21] MEDS ORDERED: HYDROCODONE/ACETAMINOPHEN 5-325 MG (6 TAB/ER DISP) PO PRN (00:53)
[2017-08-21] MEDS ORDERED: DEXAMETHASONE 4 MG TABLET PO ONE (00:53)
--- NOTE | 2017-08-21 00:53 | ER Document Report ---
ED General - General Chief Complaint: Pain All Over Stated Complaint: PAIN ALL OVER BODY Time Seen by Provider: 08/20/17 21:29 Notes: Patient is a 27-year-old female with a past medical history of sarcoidosis and morbid obesity who presents with diffuse body pain. Describes it as an aching, throbbing pain to virtually every part of her body. She reports that this is similar to when she has had flares of her underlying sarcoidosis in the past which typically responds to steroids. 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 Nothing seems to improve or worsen her symptoms currently. She states the pain is overall been worsening since onset. She denies any associated fever, shortness of breath, vomiting, diarrhea or syncope. TRAVEL OUTSIDE OF THE [place] IN LAST 30 DAYS: No - Related Data Allergies/Adverse Reactions: latex [Latex] Allergy (Intermediate, Verified 08/04/17 12:04) redness/blisters Past Medical History - General Information source: Patient - Social History Smoking Status: Current Every Day Smoker Chew tobacco use (# tins/day): No Frequency of alcohol use: None Drug Abuse: None Lives with: Family Family History: Arthritis, CAD, DM, Hyperlipidemia, Hypertension, Thyroid Disfunction, Other - Sarcoidosis Patient has suicidal ideation: No Patient has homicidal ideation: No - Past Medical History Cardiac Medical History: Reports: Hx Hypertension Pulmonary Medical History: Neurological Medical History: Reports: Hx Migraine Renal/ Medical History: Reports: Hx Ovarian Cysts. Denies: Hx Peritoneal Dialysis Malignancy Medical History: Denies: Hx Bone Cancer, Hx Brain Cancer, Hx Breast Cancer, Hx Cervical Cancer, Hx Colorectal Cancer, Hx Leukemia, Hx Liver Cancer, Hx Lung Cancer, Hx Lymphoma, Hx Ovarian Cancer, Hx Pancreatic Cancer, Hx Renal ( Kidney) Cancer, Hx Skin Cancer GI Medical History: Denies: Hx Hepatitis Musculoskeltal Medical History: Reports Hx Fibromyalgia, Reports Hx Musculoskeletal Trauma Psychiatric Medical History: Reports: Hx Anxiety, Hx Depression Infectious Medical History: Denies: Hx Hepatitis Past Surgical History: Reports: Hx Appendectomy, Hx Section, Hx Cholecystectomy, Hx Orthopedic Surgery - right foot, Hx Tonsillectomy - Immunizations Immunizations up to date: Yes Hx Diphtheria, Pertussis, Tetanus Vaccination: Yes Review of Systems - Review of Systems Notes: Constitutional: Negative for fever. HENT: Negative for sore throat. Eyes: Negative for visual changes. Cardiovascular: Negative for chest pain. Respiratory: Negative for shortness of breath. Gastrointestinal: Negative for abdominal pain, vomiting or diarrhea. Genitourinary: Negative for dysuria. Musculoskeletal: Positive for diffuse body pain Skin: Negative for rash. Neurological: Negative for headaches, weakness or numbness. 10 point ROS negative except as marked above and in HPI. Physical Exam - Vital signs Vitals: Temp Pulse Resp BP Pulse Ox 99.1 F 98 16 133/105 H 96 08/20/17 20:19 08/20/17 20:19 08/20/17 20:19 08/20/17 20:19 08/20/17 20:19 Interpretation: Normal Notes: PHYSICAL EXAMINATION: GENERAL: Well-appearing, well-nourished and in no acute distress. HEAD: Atraumatic, normocephalic. EYES: Pupils equal round and reactive to light, extraocular movements intact, sclera anicteric, conjunctiva are normal. ENT: nares patent, oropharynx clear without exudates. Moist mucous membranes. NECK: Normal range of motion, supple without lymphadenopathy LUNGS: Breath sounds clear to auscultation bilaterally and equal. No wheezes rales or rhonchi. HEART: Regular rate and rhythm without murmurs ABDOMEN: Soft, morbidly obese abdomen, nontender, normoactive bowel sounds. No guarding, no rebound. No masses appreciated. EXTREMITIES: Normal range of motion, trace edema in the bilateral lower extremities that is equal and symmetric, no cyanosis. NEUROLOGICAL: No focal neurological deficits. Moves all extremities spontaneously and on command. PSYCH: Normal mood, normal affect. SKIN: Warm, Dry, normal turgor, no rashes or lesions noted. Course - Re-evaluation Re-evalutation: 08/21/17 00:52 Patient presents with multiple vague complaints that did not appear to be concerning for any acute life-threatening pathology. Vitals are within normal limits at triage and at time of discharge. Physical examination is unremarkable. Patient has tolerated oral intake without difficulty. Patient was not noted to be in distress at any point during their ER visit. At this time, based on the reassuring evaluation, I do not suspect an acute AR, pulmonary embolus, aortic dissection, acute intra-abdominal pathology, stroke, or sepsis. Patient is complaining of diffuse body pain and she states this is similar to episodes of sarcoidosis that she has had in the past. She has been treated with a dose of dexamethasone. Her labs also due to her history of mild hypokalemia which has been repleted here in the emergency department and she has been encouraged to follow-up with him regarding this finding. Will discharge with return precautions and follow-up recommendations. Verbal discharge instructions given a the bedside and opportunity for questions given. Medication warnings reviewed. Patient is in agreement with this plan and has verbalized understanding of return precautions and the need for primary care follow-up in the next 24-72 hours. - Vital Signs Vital signs: Temp Pulse Resp BP Pulse Ox 97.9 F 101 H 16 108/65 96 08/21/17 01:34 08/21/17 01:34 08/21/17 01:34 08/21/17 01:34 08/21/17 01:34 - Laboratory Result Diagrams: 08/20/17 22:10 08/20/17 22:10 Laboratory results interpreted by me: 08/20/17 08/20/17 22:10 22:10 Hgb 10.3 L Hct 32.1 L MCV 78 L MCH 25.0 L RDW 19.8 H Eosinophils % 7.6 H Potassium 3.0 L* Chloride 94 L Carbon Dioxide 38 H BUN 6 L AST 55 H - Diagnostic Test Radiology reviewed: Image reviewed, Reports reviewed Radiology results interpreted by me: 08/21/17 00:52 Chest x-ray: No acute infiltrate or pneumothorax Discharge - Discharge Clinical Impression: Total body pain, Sarcoidosis, Hypokalemia Condition: Good Disposition: HOME, SELF-CARE Additional Instructions: Please return to the emergency room immediately if you experience any concerning symptoms including high fevers, severe headache, chest pain, difficulty breathing, abdominal pain, slurred speech, numbness or weakness in your arms or legs, or any other symptom that concerns you.
[2017-08-21 02:04] VITALS: BP 108/65
== END 2017-08-21 01:34 | disposition home or self-care (01) ==
LOC: ER 19:34
DX: D86.9 Sarcoidosis, unspecified (principal); E87.6 Hypokalemia; R52 Pain, unspecified; F17.200 Nicotine dependence, unspecified, uncomplicated; I10 Essential (primary) hypertension; E66.01 Morbid (severe) obesity due to excess calories; Z68.43 Body mass index [BMI] 50.0-59.9, adult; Z91.040 Latex allergy status
CPT/HCPCS: 99284; 36415; 84703; 85025; 80053; 71046; J3490

== ENCOUNTER 2017-08-25 20:50 | Emergency (ER) | payer MEDICAID ==
[2017-08-25 21:01] VITALS: BP 112/59
[2017-08-25] MEDS ORDERED: KETOROLAC TROMETHAMINE 60 MG/2 ML SDV IM ONE (21:19)
[2017-08-25] MEDS ORDERED: DEXAMETHASONE SOD PHOS INJ 10 MG/1 ML VIAL IM ONE (21:19)
--- NOTE | 2017-08-25 21:20 | ER Document Report ---
ED General Pain - General Chief Complaint: Pain All Over Stated Complaint: PAIN ALL OVER Time Seen by Provider: 08/25/17 21:10 Mode of Arrival: Ambulatory Information source: Patient Notes: Patient is a 27-year-old female with a history of sarcoidosis who presents to the ER today for total body pain and shortness of breath. Patient states that this is how her sarcoid flares usually start. Patient was seen here 5 days ago for the exact same symptoms. Patient was given steroid medication during that ER visit as well as pain medication. Patient states that that did not help. 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 She denies any fever, chills, productive cough, chest pain specifically. 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 TRAVEL OUTSIDE OF THE [place] IN LAST 30 DAYS: No - Related Data Allergies/Adverse Reactions: latex [Latex] Allergy (Intermediate, Verified 08/25/17 20:51) redness/blisters Past Medical History - General Information source: Patient - Social History Smoking Status: Current Every Day Smoker Chew tobacco use (# tins/day): No Frequency of alcohol use: None Drug Abuse: None Family History: Arthritis, CAD, DM, Hyperlipidemia, Hypertension, Thyroid Disfunction, Other - Sarcoidosis Patient has suicidal ideation: No Patient has homicidal ideation: No - Past Medical History Cardiac Medical History: Reports: Hx Hypertension Pulmonary Medical History: Neurological Medical History: Reports: Hx Migraine Renal/ Medical History: Reports: Hx Ovarian Cysts. Denies: Hx Peritoneal Dialysis Malignancy Medical History: Denies: Hx Bone Cancer, Hx Brain Cancer, Hx Breast Cancer, Hx Cervical Cancer, Hx Colorectal Cancer, Hx Leukemia, Hx Liver Cancer, Hx Lung Cancer, Hx Lymphoma, Hx Ovarian Cancer, Hx Pancreatic Cancer, Hx Renal ( Kidney) Cancer, Hx Skin Cancer GI Medical History: Denies: Hx Hepatitis Musculoskeltal Medical History: Reports Hx Fibromyalgia, Reports Hx Musculoskeletal Trauma Psychiatric Medical History: Reports: Hx Anxiety, Hx Depression Infectious Medical History: Denies: Hx Hepatitis Past Surgical History: Reports: Hx Appendectomy, Hx Section, Hx Cholecystectomy, Hx Orthopedic Surgery - right foot, Hx Tonsillectomy - Immunizations Immunizations up to date: Yes Hx Diphtheria, Pertussis, Tetanus Vaccination: Yes Review of Systems - Review of Systems Constitutional: No symptoms reported EENT: No symptoms reported Cardiovascular: No symptoms reported Respiratory: No symptoms reported Gastrointestinal: No symptoms reported Genitourinary: No symptoms reported Female Genitourinary: No symptoms reported Musculoskeletal: No symptoms reported Skin: See HPI Hematologic/Lymphatic: No symptoms reported Neurological/Psychological: No symptoms reported Physical Exam - Vital signs Vitals: Temp Pulse Resp BP Pulse Ox 97.7 F 123 H 20 112/59 L 97 08/25/17 20:59 08/25/17 20:59 08/25/17 20:59 08/25/17 20:59 08/25/17 20:59 - Notes Notes: PHYSICAL EXAMINATION: GENERAL: Morbidly obese, but in no acute distress. HEAD: Atraumatic, normocephalic. EYES: Pupils equal round and reactive to light, extraocular movements intact, sclera anicteric, conjunctiva are normal. ENT: ear canals without erythema or foreign body, TMs pearly ross with good bony landmarks, nares patent, oropharynx clear without exudates. Moist mucous membranes. Airway patent NECK: Normal range of motion, supple without lymphadenopathy LUNGS: CTAB and equal. No wheezes rales or rhonchi. HEART: Regular rate and rhythm without murmurs ABDOMEN: Soft, no tenderness. No guarding, no rebound BACK: no vertebral tenderness, normal ROM GI/: no CVA tenderness EXTREMITIES: Normal range of motion, no pitting edema. No cyanosis. NEUROLOGICAL: Cranial nerves grossly intact. Normal sensory/motor exams. PSYCH: Normal mood, normal affect. SKIN: Warm, Dry, normal turgor,scratch to right cheek of face and left breast, not infected, no erythema, bleeding or drainage Course - Re-evaluation Re-evalutation: 08/25/17 22:07 Chest x-ray reveals no acute pathology. Patient be placed back on her Pulmicort inhaler, given a course of steroids, given rheumatology information to follow-up with. Patient in no distress with all normal vital signs today. 08/26/17 01:13 - Vital Signs Vital signs: Temp Pulse Resp BP Pulse Ox 97.7 F 123 H 20 112/59 L 97 08/25/17 20:59 08/25/17 20:59 08/25/17 20:59 08/25/17 20:59 08/25/17 20:59 Discharge - Discharge Clinical Impression: Total body pain, Sarcoidosis Condition: Stable Disposition: HOME, SELF-CARE Additional Instructions: Return immediately for any new or worsening symptoms. Follow up with primary care provider, call tomorrow to make followup appointment. [facility] [address] [id number] Prescriptions: Budesonide [Pulmicort 180 mcg Flexhaler] 1 puff IH DAILY PRN #1 aer.pow.ba PRN Reason: Methylprednisolone [Medrol Dosepack (4 mg/Tab) 21 Tab/Dosepak] 4 mg PO ASDIR PRN #21 tab.ds.pk PRN Reason:
--- NOTE | 2017-08-25 21:53 | RADIOLOGY REPORT (SQ) ---
EXAM DESCRIPTION: CHEST SINGLE VIEW COMPLETED DATE/TIME: 08/25/2017 9:46 pm REASON FOR STUDY: sob, sarcoidosis COMPARISON: 08/20/2017 EXAM PARAMETERS: NUMBER OF VIEWS: One view. TECHNIQUE: Single frontal radiographic view of the chest acquired. RADIATION DOSE: NA LIMITATIONS: None. FINDINGS: LUNGS AND PLEURA: No opacities, masses or pneumothorax. No pleural effusion. MEDIASTINUM AND HILAR STRUCTURES: No masses. Contour normal. HEART AND VASCULAR STRUCTURES: Heart normal in size. Normal vasculature. BONES: No acute findings. HARDWARE: None in the chest. OTHER: No other significant finding. IMPRESSION: NO ACUTE RADIOGRAPHIC FINDING IN THE CHEST. TECHNICAL DOCUMENTATION: JOB ID: [id number] [employer]- All Rights Reserved Reading location - IP/workstation name: [email or web address]
[2017-08-25] MEDS ORDERED: FENTANYL 25 MCG/HR PATCH.TD72 TD ONE (22:03)
== END 2017-08-25 23:25 | disposition home or self-care (01) ==
LOC: ER 20:50
DX: D86.9 Sarcoidosis, unspecified (principal); S00.81XA Abrasion of other part of head, initial encounter; S20.112A Abrasion of breast, left breast, initial encounter; X58.XXXA Exposure to other specified factors, initial encounter; R52 Pain, unspecified; R06.02 Shortness of breath; F17.200 Nicotine dependence, unspecified, uncomplicated; Z91.040 Latex allergy status; I10 Essential (primary) hypertension
CPT/HCPCS: 99283; 96372; 71045; J1885; J3490; J1100

== ENCOUNTER 2017-08-31 19:49 | Emergency (ER) | payer MEDICAID ==
[2017-08-31 20:18] VITALS: BP 122/88
[2017-08-31] MEDS ORDERED: KETOROLAC TROMETHAMINE INJ/PF 30 MG/1 ML SDV IM ONE (20:49)
--- NOTE | 2017-08-31 20:56 | ER Document Report ---
ED General Pain - General Chief Complaint: Pain All Over Stated Complaint: ALL OVER BODY PAIN AND SWELLING Time Seen by Provider: 08/31/17 20:29 Mode of Arrival: Ambulatory Information source: Patient TRAVEL OUTSIDE OF THE [place] IN LAST 30 DAYS: No - HPI Patient complains to provider of: body pain Notes: Patient is here with complaints of generalized body pain. The patient states that this is a chronic problem secondary to her sarcoidosis. 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 According to the patient, blast furnace supervisor left the practice that her primary care doctor was that , and since she was still seeing her primary care doctor, she reports that the blast furnace supervisor with no longer see her. She is in the process of trying to get a new blast furnace supervisor. Patient has been seen here multiple times in the past several weeks for chronic generalized abdominal pain secondary to her sarcoidosis. On previous visits she has been given shots of pain medication in the emergency department and been sent home on either oral narcotic medications or fentanyl patches. She is here requesting that we do the same for her again. She denies any new falls or injuries. She states that the pain she is having today is her typical pain that she has all the time. She denies any fever. No nausea, vomiting, diarrhea. The patient has a prior history of unexplained tachycardia, she is supposed to take a beta-dora twice a day, but states she only took her dose this morning and has not taken her dose tonight. She denies any chest pain. She does complain of some shortness of breath, but states that this is also chronic for her as well. She denies any rash. No numbness, tingling, weakness. Nothing makes her symptoms better or worse. No other complaints at this time. - Related Data Allergies/Adverse Reactions: latex [Latex] Allergy (Intermediate, Verified 08/25/17 20:51) redness/blisters Past Medical History - Social History Smoking Status: Current Every Day Smoker Chew tobacco use (# tins/day): No Frequency of alcohol use: None Drug Abuse: None Family History: Arthritis, CAD, DM, Hyperlipidemia, Hypertension, Thyroid Disfunction, Other - Sarcoidosis Patient has suicidal ideation: No Patient has homicidal ideation: No - Past Medical History Cardiac Medical History: Reports: Hx Hypertension Pulmonary Medical History: Neurological Medical History: Reports: Hx Migraine Renal/ Medical History: Reports: Hx Ovarian Cysts. Denies: Hx Peritoneal Dialysis Malignancy Medical History: Denies: Hx Bone Cancer, Hx Brain Cancer, Hx Breast Cancer, Hx Cervical Cancer, Hx Colorectal Cancer, Hx Leukemia, Hx Liver Cancer, Hx Lung Cancer, Hx Lymphoma, Hx Ovarian Cancer, Hx Pancreatic Cancer, Hx Renal ( Kidney) Cancer, Hx Skin Cancer GI Medical History: Denies: Hx Hepatitis Musculoskeltal Medical History: Reports Hx Fibromyalgia, Reports Hx Musculoskeletal Trauma Psychiatric Medical History: Reports: Hx Anxiety, Hx Depression Infectious Medical History: Denies: Hx Hepatitis Past Surgical History: Reports: Hx Appendectomy, Hx Section, Hx Cholecystectomy, Hx Orthopedic Surgery - right foot, Hx Tonsillectomy - Immunizations Immunizations up to date: Yes Hx Diphtheria, Pertussis, Tetanus Vaccination: Yes Review of Systems - Review of Systems -: Yes All other systems reviewed and negative Physical Exam - Vital signs Vitals: Temp Pulse Resp BP Pulse Ox 97.5 F 126 H 17 122/88 H 97 08/31/17 20:17 08/31/17 20:17 08/31/17 20:17 08/31/17 20:17 08/31/17 20:17 - Notes Notes: GENERAL: alert, cooperative, nontoxic, no distress. HEAD: normocephalic, atraumatic EYES: conjunctiva pink without discharge, no external redness or swelling. EARS: no external swelling, no external redness NOSE: atraumatic, no external swelling MOUTH/THROAT: mucous membranes moist and pink, posterior pharynx without erythema, swelling, exudate. No trismus or drooling. NECK: soft, supple, full range of motion, no meningismus. CHEST: no distress, lungs clear and equal throughout. No wheezing, rales, rhonchi. CARDIAC: regular rhythm, mild tachycardia, no murmur, normal capillary refill, normal pulses. No peripheral edema noted. ABDOMEN: Soft, nontender. BACK: full range of motion, no CVA tenderness. EXTREMITIES: full range of motion of all extremities. No redness, no swelling. NEURO: alert and oriented x 3, no focal deficits, full range of motion of all extremities. PYSCH: appropriate mood, affect. Patient is cooperative. SKIN: pink, warm, dry, no rash. Course - Re-evaluation Re-evalutation: 08/31/17 20:52 Patient is nontoxic appearing with stable vitals. She is noted to be slightly tachycardic here, in reviewing her previous visits she has had tachycardia in the 120s on prior visits. The patient also tells me that she has a history of tachycardia and took her beta-dora this morning but has not taken her evening dose. She denies any chest pa Patient is here with complaints of generalized body pain. She has a history of sarcoidosis and states that this feels like her previous typical sarcoidosis flareups. She been seen multiple times over the last several weeks for the same complaints. She has had lab work and chest x-rays done at that time all were unremarkable aside from some mild hypokalemia on her last visit which was corrected. She denies any change in her symptoms. No fever. She has a benign exam. No sign of serious illness at this time as hers symptoms are chronic in nature. She is requesting a shot of pain medication and to go home with fentanyl patches. I explained that she has had this done on some previous visits and that we can no longer treat her chronic pain from the emergency department with narcotic medications. I will give her a shot of Toradol here in the emergency department she will be discharged home with a prescription for Naprosyn that she can take as needed for chronic pain. She will be given referrals to primary care as well as pain management. She was instructed to follow-up with them at the next available appointment to get established and treatment for her chronic pain. She is instructed to follow-up sooner if she develops any worsening symptoms, high fever, persistent vomiting, or has any further concerns. The patient's emergency department workup and current diagnosis were explained to the patient and or family. Follow-up instructions were provided. Medications if prescribed were discussed. Instructions for when to return to the emergency department including specific worrisome symptoms were discussed with the patient and/or family. The patient is noted to have elevated blood pressure during today's emergency department visit. The patient was informed of this finding. The patient was instructed that this may be related to pre-hypertension and requires further evaluation with a primary care provider. The patient has no hypertensive symptoms at this time. - Vital Signs Vital signs: Temp Pulse Resp BP Pulse Ox 97.5 F 126 H 17 122/88 H 97 08/31/17 20:17 08/31/17 20:08/31/17 20:08/31/17 20:17 08/31/17 20:17 Discharge - Discharge Clinical Impression: Chronic pain Qualifiers: Chronic pain type: chronic pain syndrome Qualified Code(s): G89.4 - Chronic pain syndrome Condition: Stable Disposition: HOME, SELF-CARE Instructions: Chronic Pain Control ([facility]), Pain Management, Family Physicians / Practices Additional Instructions: Take medications as prescribed. Follow-up with your primary care doctor at the next available appointment. Try to get established with a pain management at the next available appointment. Follow-up sooner for worsening symptoms, high fever, severe chest pain, persistent vomiting, or for any further concerns. Prescriptions: Naproxen [Naprosyn] 500 mg PO BID #20 tablet Forms: Elevated Blood Pressure, Smoking Cessation Education Referrals: [facility] [Provider Group] - Follow up as needed
== END 2017-08-31 21:17 | disposition home or self-care (01) ==
LOC: ER 19:49
DX: G89.4 Chronic pain syndrome (principal); M79.1 Myalgia; R00.0 Tachycardia, unspecified; F17.200 Nicotine dependence, unspecified, uncomplicated; I10 Essential (primary) hypertension; Z91.040 Latex allergy status; Z90.49 Acquired absence of other specified parts of digestive tract
CPT/HCPCS: 99283; 96372; J1885

== ENCOUNTER 2017-09-03 15:42 | Emergency (ER) | payer MEDICAID ==
[2017-09-03] MEDS ORDERED: PROPRANOLOL HCL 40 MG TABLET PO ONE (16:14)
--- NOTE | 2017-09-03 16:15 | ER Document Report ---
ED Medical Screen (RME) - General Chief Complaint: Pain All Over Stated Complaint: BODY PAIN AND SWELLING Time Seen by Provider: 09/03/17 15:56 Mode of Arrival: Ambulatory Information source: Patient Notes: 27-year-old female history of sarcoidosis states she has been in pain for 3 weeks, patient has been unable to follow-up with her primary care physician has been seen here multiple times for patient also notes that she has a very fast heart rate and sees cardiology for is supposed be on propranolol but has not taken any of it today because she cannot find her refill I have greeted and performed a rapid initial assessment of this patient. A comprehensive ED assessment and evaluation of the patient, analysis of test results and completion of the medical decision making process will be conducted by additional ED providers. PHYSICAL EXAMINATION: GENERAL: Well-appearing, well-nourished and in no acute distress. HEAD: Atraumatic, normocephalic. EYES: Pupils equal round extraocular movements intact, conjunctiva are normal. ENT: Nares patent Heart: Tachycardic NECK: Normal range of motion LUNGS: No respiratory distress Musculoskeletal: Normal range of motion NEUROLOGICAL: Normal speech, normal gait. PSYCH: Tearful SKIN: Warm, Dry, normal turgor, no rashes or lesions noted. TRAVEL OUTSIDE OF THE [place] IN LAST 30 DAYS: No - Related Data Allergies/Adverse Reactions: latex [Latex] Allergy (Intermediate, Verified 09/03/17 15:42) redness/blisters Past Medical History - Social History Chew tobacco use (# tins/day): No Frequency of alcohol use: None Drug Abuse: None - Past Medical History Cardiac Medical History: Reports: Hx Hypertension Pulmonary Medical History: Neurological Medical History: Reports: Hx Migraine Renal/ Medical History: Reports: Hx Ovarian Cysts. Denies: Hx Peritoneal Dialysis Malignancy Medical History: Denies: Hx Bone Cancer, Hx Brain Cancer, Hx Breast Cancer, Hx Cervical Cancer, Hx Colorectal Cancer, Hx Leukemia, Hx Liver Cancer, Hx Lung Cancer, Hx Lymphoma, Hx Ovarian Cancer, Hx Pancreatic Cancer, Hx Renal ( Kidney) Cancer, Hx Skin Cancer GI Medical History: Denies: Hx Hepatitis Musculoskeltal Medical History: Reports Hx Arthritis - rheumatoid arthritis, Reports Hx Fibromyalgia, Reports Hx Musculoskeletal Trauma Psychiatric Medical History: Reports: Hx Anxiety, Hx Depression Infectious Medical History: Denies: Hx Hepatitis Past Surgical History: Reports: Hx Appendectomy, Hx Section, Hx Cholecystectomy, Hx Orthopedic Surgery - right foot, Hx Tonsillectomy - Immunizations Immunizations up to date: Yes Hx Diphtheria, Pertussis, Tetanus Vaccination: Yes Physical Exam - Vital signs Vitals: Temp Pulse Resp BP Pulse Ox 98.3 F 130 H 14 122/88 H 98 09/03/17 15:47 09/03/17 15:47 09/03/17 15:47 09/03/17 15:47 09/03/17 15:47 Course - Vital Signs Vital signs: Temp Pulse Resp BP Pulse Ox 98.3 F 130 H 14 122/88 H 98 09/03/17 15:47 09/03/17 15:47 09/03/17 15:47 09/03/17 15:47 09/03/17 15:47
[2017-09-03 16:40] LABS: ABSOLUTE EOSINOPHILS # (AUTO) 0.5 10^3/uL (0.0-0.6); ABSOLUTE LYMPHOCYTES (AUTO) 2.4 10^3/uL (0.5-4.7); ABSOLUTE MONOCYTES (AUTO) 0.4 10^3/uL (0.1-1.4); ABSOLUTE NEUT (AUTO) 8.2 10^3/uL (1.7-8.2); BASOPHILS % (AUTO) 0.3 % (0-2); EOSINOPHILS % (AUTO) 4.2 % (0-6); HEMATOCRIT 33.4 % (36.0-47.0); HEMOGLOBIN 10.6 g/dL (12.0-15.5); LYMPHOCYTES % (AUTO) 20.6 % (13-45); MEAN CORPUSCULAR HGB CONC 31.9 g/dL (32.0-36.0); MEAN CORPUSCULAR VOLUME 79 fl (80-97); MONOCYTES % (AUTO) 3.3 % (3-13); PLATELET COUNT 378 10^3/uL (150-450); RED BLOOD COUNT 4.25 10^6/uL (3.72-5.28); RED CELL DISTRIBUTION WIDTH 20.4 % (11.5-14.0); SEGMENTED NEUTROPHILS % (AUTO) 71.6 % (42-78); TOTAL CELLS COUNTED % (AUTO) 100 %; WHITE BLOOD COUNT 11.4 10^3/uL (4.0-10.5)
[2017-09-03] MEDS ORDERED: HYDROMORPHONE HCL INJ/PF 2 MG/ML AMPULE IM ONE (16:42)
[2017-09-03] MEDS ORDERED: METHYLPREDNISOLONE ACETATE INJ 80 MG/1 ML VIAL IM ONE (16:45)
--- NOTE | 2017-09-03 17:14 | ER Document Report ---
ED General Pain - General Chief Complaint: Pain All Over Stated Complaint: BODY PAIN AND SWELLING Time Seen by Provider: 09/03/17 15:56 Mode of Arrival: Ambulatory Information source: Patient Notes: Chief complaint: Generalized body pain History of complain:( obtained from----patient) 27 years old female with a history of sarcoidosis, other psychiatric illness, presents today with generalized body aches and pains and joint pains. She thinks it is the sarcoid flareup. She is also having sarcoid dermatosis with multiple skin rashes. Denies any fever chills or other constitutional symptoms. Denies any difficulty in breathing. Onset: As above Duration: Last few days Severity: Moderate to severe Quality: Sharp achy Context: Sarcoidosis Exacerbating factor and relieving factors: Movement of the joint REVIEW OF SYSTEMS: CONSTITUTIONAL : Denies fever, chills, or sweats. Denies recent illness. EENT: Denies eye, ear, throat, or mouth pain or symptoms. Denies nasal or sinus congestion or discharge. Denies throat, tongue, or mouth swelling or difficulty swallowing. CARDIOVASCULAR: Denies chest pain. Denies palpitations or racing or irregular heart beat. Denies ankle edema. RESPIRATORY: Denies cough, cold, or chest congestion. Denies shortness of breath, difficulty breathing, or wheezing. GASTROINTESTINAL: Denies distention. Denies nausea, vomiting, or diarrhea. Denies blood in vomitus, stools, or per rectum. Denies black, tarry stools. Denies constipation. GENITOURINARY: Denies difficulty urinating, painful urination, burning, frequency, blood in urine, or discharge. FEMALE GENITOURINARY: Denies vaginal bleeding, heavy or abnormal periods, irregular periods. Denies vaginal discharge or odor. MUSCULOSKELETAL: Denies back or neck pain or stiffness. Denies joint pain or swelling. SKIN: Denies rash, lesions or sores. HEMATOLOGIC : Denies easy bruising or bleeding. LYMPHATIC: Denies swollen, enlarged glands. NEUROLOGICAL: Denies confusion or altered mental status. Denies passing out or loss of consciousness. Denies dizziness or lightheadedness. Denies headache. Denies weakness or paralysis or loss of use of either side. Denies problems with gait or speech. Denies sensory loss, numbness, or tingling. Denies seizures. PSYCHIATRIC: Denies anxiety or stress. Denies depression, suicidal ideation, or homicidal ideation. ALL OTHER SYSTEMS REVIEWED AND NEGATIVE. PHYSICAL EXAMINATION: GENERAL: Well-appearing, well-nourished and in no acute distress. Morbid obesity HEAD: Atraumatic, normocephalic. EYES: Pupils equal round and reactive to light, extraocular movements intact, conjunctiva are normal. ENT: Nares patent, oropharynx clear without exudates. Moist mucous membranes. NECK: Normal range of motion, supple without lymphadenopathy LUNGS: Breath sounds clear to auscultation bilaterally and equal. No wheezes rales or rhonchi. HEART: Regular rate and rhythm without murmurs ABDOMEN: Soft, nontender, nondistended abdomen. No guarding, no rebound. No masses appreciated. Examination of genitals-deferred Musculoskeletal: Normal range of motion, no pitting or edema. No cyanosis. NEUROLOGICAL: Cranial nerves grossly intact. Normal speech, normal gait. Normal sensory, motor exams PSYCH: Normal mood, normal affect. SKIN: Multiple skin sarcoid type of lesions noted Dictation was performed using [employer] voice recognition software TRAVEL OUTSIDE OF THE [place] IN LAST 30 DAYS: No - HPI Notes: Dictated - Related Data Allergies/Adverse Reactions: latex [Latex] Allergy (Intermediate, Verified 09/03/17 16:55) redness/blisters Past Medical History - General Information source: Patient - Social History Smoking Status: Current Every Day Smoker Chew tobacco use (# tins/day): No Frequency of alcohol use: None Drug Abuse: None Family History: Arthritis, CAD, DM, Hyperlipidemia, Hypertension, Thyroid Disfunction, Other - Sarcoidosis Patient has suicidal ideation: No Patient has homicidal ideation: No - Past Medical History Cardiac Medical History: Reports: Hx Hypertension Pulmonary Medical History: Neurological Medical History: Reports: Hx Migraine Renal/ Medical History: Reports: Hx Ovarian Cysts. Denies: Hx Peritoneal Dialysis Malignancy Medical History: Denies: Hx Bone Cancer, Hx Brain Cancer, Hx Breast Cancer, Hx Cervical Cancer, Hx Colorectal Cancer, Hx Leukemia, Hx Liver Cancer, Hx Lung Cancer, Hx Lymphoma, Hx Ovarian Cancer, Hx Pancreatic Cancer, Hx Renal ( Kidney) Cancer, Hx Skin Cancer GI Medical History: Denies: Hx Hepatitis Musculoskeltal Medical History: Reports Hx Arthritis - rheumatoid arthritis, Reports Hx Fibromyalgia, Reports Hx Musculoskeletal Trauma Psychiatric Medical History: Reports: Hx Anxiety, Hx Depression Infectious Medical History: Denies: Hx Hepatitis Past Surgical History: Reports: Hx Appendectomy, Hx Section, Hx Cholecystectomy, Hx Orthopedic Surgery - right foot, Hx Tonsillectomy - Immunizations Immunizations up to date: Yes Hx Diphtheria, Pertussis, Tetanus Vaccination: Yes Review of Systems - Review of Systems Notes: Dictated Physical Exam - Vital signs Vitals: Temp Pulse Resp BP Pulse Ox 98.3 F 130 H 14 122/88 H 98 09/03/17 15:47 09/03/17 15:47 09/03/17 15:47 09/03/17 15:47 09/03/17 15:47 - Notes Notes: Dictated Course - Re-evaluation Re-evalutation: 09/03/17 17: 09/03/17 17:14 09/03/17 17:50 Given pain medications as well as steroid. - Vital Signs Vital signs: Temp Pulse Resp BP Pulse Ox 98.2 F 120 H 17 134/54 H 98 09/03/17 17:32 09/03/17 17:32 09/03/17 17:32 09/03/17 17:32 09/03/17 17:32 - Laboratory Result Diagrams: 09/03/17 16:24 09/03/17 17:00 Laboratory results interpreted by me: 09/03/17 09/03/17 16:24 17:00 WBC 11.4 H Hgb 10.6 L Hct 33.4 L MCV 79 L MCH 25.0 L MCHC 31.9 L RDW 20.4 H Glucose 112 H AST 60 H ALT 87 H Discharge - Discharge Clinical Impression: Sarcoidosis Chronic pain Qualifiers: Chronic pain type: other chronic pain Qualified Code(s): G89.29 - Other chronic pain Condition: Fair Disposition: HOME, SELF-CARE Instructions: Chronic Pain Control ([facility]) Prescriptions: Prednisone [Deltasone 20 mg Tablet] 3 tab PO DAILY 5 Days tablet
[2017-09-03] MEDS ORDERED: PROPRANOLOL HCL 20 MG TABLET ONE (17:35)
[2017-09-03 17:39] LABS: ALANINE AMINOTRANSFERASE 87 U/L (9-52); ALBUMIN 3.8 g/dL (3.5-5.0); ALKALINE PHOSPHATASE 97 U/L (38-126); ANION GAP 11 (5-19); ASPARTATE AMINO TRANSFERASE 60 U/L (14-36); BILIRUBIN,DIRECT 0.2 mg/dL (0.0-0.4); BILIRUBIN,TOTAL 0.2 mg/dL (0.2-1.3); BLOOD UREA NITROGEN 11 mg/dL (7-20); CALCIUM 9.7 mg/dL (8.4-10.2); CARBON DIOXIDE 27 mmol/L (22-30); CHLORIDE 105 mmol/L (98-107); GLUCOSE 112 mg/dL (75-110); POTASSIUM 3.9 mmol/L (3.6-5.0); SODIUM 143.4 mmol/L (137-145); TOTAL PROTEIN 6.7 g/dL (6.3-8.2)
[2017-09-03] MEDS ORDERED: ONDANSETRON HCL INJ/PF 4 MG/2 ML SDV IV ONE (19:11)
[2017-09-03 20:37] VITALS: BP 135/78
== END 2017-09-03 20:37 | disposition home or self-care (01) ==
LOC: ER 15:42
DX: D86.9 Sarcoidosis, unspecified (principal); G89.29 Other chronic pain; M79.1 Myalgia; M25.50 Pain in unspecified joint; F17.200 Nicotine dependence, unspecified, uncomplicated; I10 Essential (primary) hypertension
CPT/HCPCS: 99283; 96372; 96374; 36415; 85025; 80053; J1040; J1170; J3490; J2405

== ENCOUNTER 2017-09-07 19:17 | Emergency (ER) | payer MEDICAID ==
--- NOTE | 2017-09-07 20:12 | ER Document Report ---
ED General Pain - General Chief Complaint: Pain All Over Stated Complaint: BODY PAIN/SWELLING Time Seen by Provider: 09/07/17 19:53 Mode of Arrival: Ambulatory Information source: Patient Notes: 27-year-old female presents to ED for complaint of generalized body pain with swelling all over. This is a morbidly obese female who has been here multiple times over the last couple weeks for pain to all joints. She states that her primary care doctor would not send her to her electric refrigerator preparer or a chronic pain management doctor. She states that her neurologist told her that she needed to quit take ibuprofen and Tylenol and that her primary care doctor does not give her any narcotics. She states that her electric refrigerator preparer quit seeing her because she went back to the primary doctor. She is wearing a heart monitor that she states that her boat tester put her on for 4 weeks. She states is been ongoing for about 3 weeks. She states there is nothing new since the last 2 to visit she was here. She states that she was given steroids on the last visit and that is helping some but her swelling is increased. She states that she was told she was not supposed to take [id number] medications any more as that makes things worse. She does have some healing lesions to her feet that were dressed with Xeroform gauze and tape. These will be redressed. Patient is alert and oriented. She is asking for narcotics at this time. She states that her primary care doctor will not give her narcotics. She states usually when she comes and they gave her some narcotics. TRAVEL OUTSIDE OF THE [place] IN LAST 30 DAYS: No - HPI Onset: Other Onset/Duration: Persistent - Chronic Quality of pain: Achy Severity: Severe Pain Level: 5 Context: General body pain Typical of prior episodes of painful crisis: Yes Associated symptoms: None Exacerbated by: Movement Relieved by: Denies Similar symptoms previously: Yes Recently seen / treated by doctor: Yes - Related Data Allergies/Adverse Reactions: latex [Latex] Allergy (Intermediate, Verified 09/03/17 16:55) redness/blisters Past Medical History - General Information source: Patient - Social History Smoking Status: Current Every Day Smoker Cigarette use (# per day): Yes - Pack per day Chew tobacco use (# tins/day): No Smoking Education Provided: Yes Frequency of alcohol use: None Drug Abuse: None Lives with: Family Family History: Arthritis, CAD, DM, Hyperlipidemia, Hypertension, Thyroid Disfunction, Other - Sarcoidosis Patient has suicidal ideation: No Patient has homicidal ideation: No - Past Medical History Cardiac Medical History: Reports: Hx Hypertension Pulmonary Medical History: Reports: Other - Sarcoidosis Neurological Medical History: Reports: Hx Migraine Endocrine Medical History: Reports: None Renal/ Medical History: Reports: Hx Ovarian Cysts Malignancy Medical History: Reports: None GI Medical History: Reports: None Musculoskeltal Medical History: Reports Hx Arthritis - rheumatoid arthritis, Reports Hx Fibromyalgia, Reports Hx Musculoskeletal Trauma Skin Medical History: Reports None Psychiatric Medical History: Reports: Hx Anxiety, Hx Depression Traumatic Medical History: Reports: None Infectious Medical History: Reports: None Past Surgical History: Reports: Hx Appendectomy, Hx Section, Hx Cholecystectomy, Hx Orthopedic Surgery - right foot, Hx Tonsillectomy - Immunizations Immunizations up to date: Yes Hx Diphtheria, Pertussis, Tetanus Vaccination: Yes Review of Systems - Review of Systems Constitutional: No symptoms reported EENT: No symptoms reported Cardiovascular: No symptoms reported Respiratory: No symptoms reported Gastrointestinal: No symptoms reported Genitourinary: No symptoms reported Female Genitourinary: No symptoms reported Musculoskeletal: Joint pain Skin: Other - Healing lesions to both feet. denies: Rash - On her last visit on 03 September it was stated that she had multiple rashes. She has no rashes at this time she does have a few open sores to the bottom of her feet that were wrapped with Xeroform and gauze. Hematologic/Lymphatic: No symptoms reported Neurological/Psychological: No symptoms reported -: Yes All other systems reviewed and negative Physical Exam - Vital signs Vitals: Temp Pulse Resp BP Pulse Ox 97.7 F 107 H 20 113/89 H 97 09/07/17 19:24 09/07/17 19:24 09/07/17 19:24 09/07/17 19:24 09/07/17 19:24 Interpretation: Normal - General General appearance: Appears well, Alert - HEENT Head: Normocephalic, Atraumatic Eyes: Normal Pupils: PERRL - Respiratory Respiratory status: No respiratory distress Chest status: Nontender Breath sounds: Normal Chest palpation: Normal - Cardiovascular Rhythm: Regular Heart sounds: Normal auscultation Murmur: No - Abdominal Inspection: Normal Distension: No distension Bowel sounds: Normal Tenderness: Nontender Organomegaly: No organomegaly - Back Back: Normal, Nontender - Extremities General upper extremity: Normal inspection, Nontender, Normal color, Normal ROM , Normal temperature General lower extremity: Normal inspection, Nontender, Normal color, Normal ROM , Normal temperature, Normal weight bearing. No: Haley's sign - Neurological Neuro grossly intact: Yes Cognition: Normal Orientation: AAOx4 Christine Coma Scale Eye Opening: Spontaneous Ish Coma Scale Verbal: Oriented Ish Coma Scale Motor: Obeys Commands Christine Coma Scale Total: 15 Speech: Normal Motor strength normal: LUE, RUE, LLE, RLE Sensory: Normal - Psychological Associated symptoms: Normal affect, Normal mood - Skin Skin Temperature: Warm Skin Moisture: Dry Skin Color: Normal Location of irregularity: Other - Healing sores to both feet. No rash anywhere. Irregularity with: Swelling - Generalized swelling and tenderness to all joints , tenderness to both feet., Tenderness Course - Re-evaluation Re-evalutation: 09/08/17 00:17 Labs were discussed with patient before she was discharged. A written report of labs given to patient. Patient is on prednisone which has caused an elevation in her WBCs. Patient was instructed to follow-up with her primary doctor and get referrals to electric refrigerator preparer pain management and podiatry. Patient verbalized understanding of instructions. - Vital Signs Vital signs: Temp Pulse Resp BP Pulse Ox 98.9 F 96 18 129/73 H 97 09/07/17 21:15 09/07/17 21:15 09/07/17 21:15 09/07/17 21:15 09/07/17 21:15 - Laboratory Result Diagrams: 09/07/17 20:26 09/07/17 20:26 Laboratory results interpreted by me: 09/07/17 09/07/17 09/07/17 20:26 20:26 20:26 WBC 16.3 H Hgb 11.2 L Hct 34.6 L MCV 79 L MCH 25.5 L RDW 21.5 H Seg Neutrophils % 81.3 H Absolute Neutrophils 13.3 H Sodium 146.0 H Glucose 130 H ALT 72 H Urine Urobilinogen 2.0 H Discharge - Discharge Clinical Impression: Sarcoidosis Chronic pain Qualifiers: Chronic pain type: other chronic pain Qualified Code(s): G89.29 - Other chronic pain Condition: Stable Disposition: HOME, SELF-CARE Additional Instructions: Please completes her prednisone as prescribed. Please follow-up with your primary doctor by telephone on Sunday and schedule a follow-up appointment. Please get a referral for chronic pain management to manage her chronic pain. Please get a referral from your primary care doctor for podiatry for your foot condition. Chronic Pain Control Stress, inactivity, and depression make pain more severe regardless of the cause of the pain. Stress and poor physical condition can cause pain such as headaches and backache. Relaxation: Rest in a quiet place with your eyes closed for 20 minutes twice daily. Concentrate on a pleasant image, or simply "feel" your breathing. Clear your mind. Stress management: Deal with your "stressors." Either take action, or eliminate the stressor from your life. Don't let things hang over you. Accept those things you can't change. Nutrition: Eat small, balanced meals -- don't skip, don't overeat. Meals should be high-carbohydrate, low-sugar, low-fat. Exercise: Exercise helps painful conditions and eases stress. Get 30 minutes of moderate exercise, five days a week. Do an activity that does not flare your pain. Precautions: Pain which continues to disrupt daily activities, or which changes in nature, requires a medical evaluation. Pain Clinic referral is available. We do not manage chronic pain in the Emergency Department. We will try to appropriately help you through an acute flare of your chronic painful condition , but for on-going chronic pain that does not improve, you will need to see your private doctor or paint maker. We do not provide repeated medication management of chronic painful conditions. If you wish, we can provide the name of local pain management physicians. FOLLOW-UP CARE: If you have been referred to a physician for follow-up care, call the physician s office for an appointment as you were instructed or within the next two days. If you experience worsening or a significant change in your symptoms, notify the physician immediately or return to the Emergency Department at any time for re-evaluation. Forms: Elevated Blood Pressure, Smoking Cessation Education Referrals: ALPHONSE DURAND DPM [ACTIVE STAFF] - Follow up as needed
[2017-09-07 20:37] LABS: ABSOLUTE BASOPHILS # (AUTO) 0.1 10^3/uL (0.0-0.2); ABSOLUTE EOSINOPHILS # (AUTO) 0.2 10^3/uL (0.0-0.6); ABSOLUTE LYMPHOCYTES (AUTO) 2.2 10^3/uL (0.5-4.7); ABSOLUTE MONOCYTES (AUTO) 0.6 10^3/uL (0.1-1.4); ABSOLUTE NEUT (AUTO) 13.3 10^3/uL (1.7-8.2); BASOPHILS % (AUTO) 0.4 % (0-2); EOSINOPHILS % (AUTO) 1.5 % (0-6); HEMATOCRIT 34.6 % (36.0-47.0); HEMOGLOBIN 11.2 g/dL (12.0-15.5); LYMPHOCYTES % (AUTO) 13.4 % (13-45); MEAN CORPUSCULAR HEMOGLOBIN 25.5 pg (27.0-33.4); MEAN CORPUSCULAR HGB CONC 32.4 g/dL (32.0-36.0); MEAN CORPUSCULAR VOLUME 79 fl (80-97); MONOCYTES % (AUTO) 3.4 % (3-13); PLATELET COUNT 393 10^3/uL (150-450); RED BLOOD COUNT 4.39 10^6/uL (3.72-5.28); RED CELL DISTRIBUTION WIDTH 21.5 % (11.5-14.0); SEGMENTED NEUTROPHILS % (AUTO) 81.3 % (42-78); TOTAL CELLS COUNTED % (AUTO) 100 %; WHITE BLOOD COUNT 16.3 10^3/uL (4.0-10.5)
[2017-09-07 20:42] LABS: APPEARANCE,URINE SLIGHTLY-CLOUDY; BILIRUBIN,URINE NEGATIVE (NEGATIVE); COLOR,URINE YELLOW; GLUCOSE, URINE NEGATIVE (NEGATIVE); KETONES,URINE NEGATIVE (NEGATIVE); LEUKOCYTE ESTERASE,URINE NEGATIVE (NEGATIVE); NITRITE,URINE NEGATIVE (NEGATIVE); PROTEIN,URINE NEGATIVE (NEGATIVE); URINE SPECIFIC GRAVITY 1.021
[2017-09-07 20:54] LABS: ALANINE AMINOTRANSFERASE 72 U/L (9-52); ALBUMIN 4.2 g/dL (3.5-5.0); ALKALINE PHOSPHATASE 94 U/L (38-126); ANION GAP 15 (5-19); ASPARTATE AMINO TRANSFERASE 29 U/L (14-36); BILIRUBIN,DIRECT 0.3 mg/dL (0.0-0.4); BILIRUBIN,TOTAL 0.3 mg/dL (0.2-1.3); BLOOD UREA NITROGEN 16 mg/dL (7-20); CALCIUM 9.6 mg/dL (8.4-10.2); CARBON DIOXIDE 25 mmol/L (22-30); CHLORIDE 106 mmol/L (98-107); GLUCOSE 130 mg/dL (75-110); POTASSIUM 4.3 mmol/L (3.6-5.0)
[2017-09-07] MEDS ORDERED: HYDROCODONE/ACETAMINOPHEN 5-325 MG TABLET PO ONE (20:59)
[2017-09-07 21:16] VITALS: BP 129/73
== END 2017-09-07 21:16 | disposition home or self-care (01) ==
LOC: ER 19:17
DX: D86.9 Sarcoidosis, unspecified (principal); G89.29 Other chronic pain; M79.1 Myalgia; M79.89 Other specified soft tissue disorders; E66.01 Morbid (severe) obesity due to excess calories; F17.210 Nicotine dependence, cigarettes, uncomplicated; I10 Essential (primary) hypertension
CPT/HCPCS: 36415; 80053; 81001; 84703; 85025; 87086; 87088; 99283

== ENCOUNTER 2017-09-17 21:14 | Emergency (ER) | payer MEDICAID ==
--- NOTE | 2017-09-17 22:29 | ER Document Report ---
ED General Pain - General Chief Complaint: Pain All Over Stated Complaint: BODYACHE Time Seen by Provider: 09/17/17 22:29 Mode of Arrival: Wheelchair Information source: Patient Notes: 27 yo female with sarcoidosis sees c/o generalized muscle and joint pain that is chronic. Was seen at [facility] last week for same multiple times in our ER for the same. Asking for pain medication unrelieved by tylenol and motrin. No feverl No new symptoms. TRAVEL OUTSIDE OF THE [place] IN LAST 30 DAYS: No - Related Data Allergies/Adverse Reactions: latex [Latex] Allergy (Intermediate, Verified 09/17/17 21:17) redness/blisters Past Medical History - General Information source: Patient - Social History Smoking Status: Unknown if Ever Smoked Frequency of alcohol use: None Drug Abuse: None Lives with: Spouse/Significant other Family History: Arthritis, CAD, DM, Hyperlipidemia, Hypertension, Thyroid Disfunction, Other - Sarcoidosis - Past Medical History Cardiac Medical History: Reports: Hx Hypertension Pulmonary Medical History: Neurological Medical History: Reports: Hx Migraine Renal/ Medical History: Reports: Hx Ovarian Cysts. Denies: Hx Peritoneal Dialysis Musculoskeltal Medical History: Reports Hx Arthritis - rheumatoid arthritis, Reports Hx Fibromyalgia, Reports Hx Musculoskeletal Trauma Psychiatric Medical History: Reports: Hx Anxiety, Hx Depression Past Surgical History: Reports: Hx Appendectomy, Hx Section, Hx Cholecystectomy, Hx Orthopedic Surgery - right foot, Hx Tonsillectomy - Immunizations Immunizations up to date: Yes Hx Diphtheria, Pertussis, Tetanus Vaccination: Yes Review of Systems - Review of Systems Constitutional: No symptoms reported EENT: No symptoms reported Cardiovascular: No symptoms reported Respiratory: No symptoms reported Gastrointestinal: No symptoms reported Genitourinary: No symptoms reported Female Genitourinary: No symptoms reported Musculoskeletal: See HPI Skin: No symptoms reported Hematologic/Lymphatic: No symptoms reported Neurological/Psychological: No symptoms reported Physical Exam - Vital signs Vitals: Temp Pulse Resp BP Pulse Ox 98.8 F 103 H 17 113/92 H 98 09/17/17 21:27 09/17/17 21:27 09/17/17 21:27 09/17/17 21:27 09/17/17 21:27 Interpretation: Normal - General General appearance: Appears well, Alert - HEENT Head: Normocephalic, Atraumatic Eyes: Normal Pupils: PERRL - Respiratory Respiratory status: No respiratory distress Chest status: Nontender Breath sounds: Normal Chest palpation: Normal - Cardiovascular Rhythm: Regular Heart sounds: Normal auscultation Murmur: No - Abdominal Inspection: Normal Distension: No distension Bowel sounds: Normal Tenderness: Nontender Organomegaly: No organomegaly - Back Back: Normal, Nontender - Extremities General upper extremity: Normal inspection, Nontender, Normal color, Normal ROM , Normal temperature General lower extremity: Normal inspection, Nontender, Normal color, Normal ROM , Normal temperature, Normal weight bearing. No: Haley's sign - Neurological Neuro grossly intact: Yes Cognition: Normal Orientation: AAOx4 Cosby Coma Scale Eye Opening: Spontaneous Ish Coma Scale Verbal: Oriented Ish Coma Scale Motor: Obeys Commands Ish Coma Scale Total: 15 Speech: Normal Motor strength normal: LUE, RUE, LLE, RLE Sensory: Normal - Psychological Associated symptoms: Normal affect, Normal mood - Skin Skin Temperature: Warm Skin Moisture: Dry Skin Color: Normal Course - Vital Signs Vital signs: Temp Pulse Resp BP Pulse Ox 98.5 F 91 20 127/78 H 97 09/17/17 23:31 09/17/17 23:31 09/17/17 23:31 09/17/17 23:31 09/17/17 23:31 Discharge - Discharge Clinical Impression: Chronic myalgia and arthralgia Condition: Good Disposition: HOME, SELF-CARE Instructions: Arthralgia ([facility]), Myalagia (Muscle Pain) ([facility]) Additional Instructions: warm compress see your doctor for pain medication Prescriptions: Tramadol HCl [Ultram 50 mg Tablet] 50 mg PO ASDIR PRN #10 tablet PRN Reason:
[2017-09-17] MEDS ORDERED: ONDANSETRON 4 MG TAB.RAPDIS PO ONE (22:39)
[2017-09-17] MEDS ORDERED: TRAMADOL HCL 50 MG TABLET PO ONE (23:14)
[2017-09-17 23:34] VITALS: BP 127/78
== END 2017-09-17 23:34 | disposition home or self-care (01) ==
LOC: ER 21:14
DX: M79.1 Myalgia (principal); M25.50 Pain in unspecified joint; I10 Essential (primary) hypertension
CPT/HCPCS: 99283; S0119

== ENCOUNTER 2017-09-24 15:17 | Emergency (ER) | payer MEDICAID ==
[2017-09-24 15:31] VITALS: BP 124/70
--- NOTE | 2017-09-24 15:51 | ER Document Report ---
HPI - HPI Pain Level: 5 Notes: Patient is a 27-year-old female who is well-known to this emergency department who presents to the ED complaining of acute on chronic right foot pain. Patient states that she has had pain in that right foot since having a plate put in it along time ago. Patient states that she does follow with a content director. Patient states that when she was walking today she felt a pop in her foot and presented to the ED for an x-ray to be performed. Patient states that she is still able to ambulate, but does have pain in doing so. She has not noticed any new bruising. Denies any drug allergies. No other concerns or complaints. Patient states that she does have crutches at home but she cannot use them. Denies any headache, fever, URI, sore throat, chest pain, palpitations, syncope, cough, shortness of breath, wheeze, dyspnea, abdominal pain, nausea/vomiting/diarrhea, urinary retention, dysuria, hematuria, muscle paralysis, numbness/tingling, or rash. - ROS Systems Reviewed and Negative: Yes All other systems reviewed and negative - REPRODUCTIVE Reproductive: DENIES: : Past Medical History - Social History Smoking Status: Current Every Day Smoker Family History: Arthritis, CAD, DM, Hyperlipidemia, Hypertension, Thyroid Disfunction, Other - Sarcoidosis - Past Medical History Cardiac Medical History: Reports: Hx Hypertension Pulmonary Medical History: Neurological Medical History: Reports: Hx Migraine Renal/ Medical History: Reports: Hx Ovarian Cysts. Denies: Hx Peritoneal Dialysis Musculoskeltal Medical History: Reports Hx Arthritis - rheumatoid arthritis, Reports Hx Fibromyalgia, Reports Hx Musculoskeletal Trauma Psychiatric Medical History: Reports: Hx Anxiety, Hx Depression Past Surgical History: Reports: Hx Appendectomy, Hx Section, Hx Cholecystectomy, Hx Orthopedic Surgery - right foot, Hx Tonsillectomy - Immunizations Immunizations up to date: Yes Hx Diphtheria, Pertussis, Tetanus Vaccination: Yes Vertical Provider Document - CONSTITUTIONAL Agree With Documented VS: Yes Notes: PHYSICAL EXAMINATION: GENERAL: Well-appearing, well-nourished and in no acute distress. LUNGS: Breath sounds clear to auscultation bilaterally and equal. No wheezes rales or rhonchi. HEART: Regular rate and rhythm without murmurs, rubs, gallops. Musculoskeletal: Rt foot/ankle: FROM to passive/active. Strength 5+/5. N/V intact distal. + tenderness to the medial dorsal foot. No bony tenderness of the ankle. Achilles intact. No ecchymosis, deformity, erythema, or warmth. Extremities: No cyanosis, clubbing, or edema b/l. Peripheral pulses 2+. Capillary refill less than 3 seconds. NEUROLOGICAL: Normal speech, limping gait. Normal sensory, motor exams PSYCH: Normal mood, normal affect. SKIN: Warm, Dry, normal turgor, no rashes or lesions noted. - INFECTION CONTROL TRAVEL OUTSIDE OF THE [place] IN LAST 30 DAYS: No Course - Re-evaluation Re-evalutation: 09/24/17 16:14 Patient is an afebrile, well-hydrated, 27-year-old female who presents to the ED with left foot pain, acute on chronic. Vitals are acceptable. PE is otherwise unremarkable for any neurovascular compromise, obvious tendon/ ligament rupture, obvious fracture/dislocation, septic joint, loosening of her surgical components. X-ray was unremarkable for any acute pathology. No labs or imaging warranted at this time based on H&P. Recommend conservative measures for symptoms. Recheck with your PCM in 3-5 days. Schedule an appoint with her content director. Return to the ED with any worsening/concerning symptoms otherwise as reviewed in discharge. Patient is in agreement. - Vital Signs Vital signs: Temp Pulse Resp BP Pulse Ox 97.9 F 102 H 20 124/70 96 09/24/17 15:28 09/24/17 15:28 09/24/17 15:28 09/24/17 15:28 09/24/17 15:28 Discharge - Discharge Clinical Impression: Right foot pain Condition: Stable Disposition: HOME, SELF-CARE Additional Instructions: Rest, Ice, Compression, Elevation Tylenol/ibuprofen as needed Light stretches daily Strength exercises as able Moist heat and massage may help F/u with your PCP in 3-5 days for a recheck Schedule an appointment with your content director for further evaluation and management Return to the ED with any worsening symptoms and/or development of fever, headache, chest pain, palpitations, syncope, shortness of breath, trouble breathing, abdominal pain, n/v/d, muscle weakness/paralysis, numbness/tingling, worsening swelling, redness, or other worsening symptoms that are concerning to you. Forms: Smoking Cessation Education Referrals: PODIATRY [Provider Group] - Follow up in 3-5 days
--- NOTE | 2017-09-24 15:56 | RADIOLOGY REPORT (SQ) ---
EXAM DESCRIPTION: FOOT RIGHT COMPLETE COMPLETED DATE/TIME: 09/24/2017 3:44 pm REASON FOR STUDY: Foot "popped" and got severe pain COMPARISON: 05/25/2015 NUMBER OF VIEWS: Three views. TECHNIQUE: AP, lateral and oblique radiographic images acquired of the right foot. LIMITATIONS: None. FINDINGS: MINERALIZATION: Normal. BONES: Stable surgical changes in the 1st metatarsal. No acute osseous or joint abnormality. JOINTS: No effusions. SOFT TISSUES: No soft tissue swelling. No foreign body. OTHER: No other significant finding. IMPRESSION: Stable surgical changes. TECHNICAL DOCUMENTATION: JOB ID: [id number] [employer]- All Rights Reserved Reading location - IP/workstation name: [email or web address]
== END 2017-09-24 16:15 | disposition home or self-care (01) ==
LOC: ER 15:17
DX: M79.671 Pain in right foot (principal); G89.29 Other chronic pain; Z98.890 Other specified postprocedural states; F17.200 Nicotine dependence, unspecified, uncomplicated; I10 Essential (primary) hypertension
CPT/HCPCS: 99283

== ENCOUNTER 2017-10-21 13:57 | Emergency (ER) | payer MEDICAID ==
[2017-10-21 14:19] VITALS: BP 134/109
[2017-10-21] MEDS ORDERED: DIPHENHYDRAMINE HCL 50 MG/ML VIAL IV ONE (14:51)
[2017-10-21] MEDS ORDERED: FAMOTIDINE INJ/PF 20 MG/2 ML SDV IV ONE (14:51)
[2017-10-21] MEDS ORDERED: METOCLOPRAMIDE HCL INJ/PF 10 MG/2 ML SDV IV ONE (14:51)
[2017-10-21] MEDS ORDERED: DICYCLOMINE HCL 20 MG TABLET PO ONE (14:52)
--- NOTE | 2017-10-21 14:53 | ER Document Report ---
ED Medical Screen (RME) - General Chief Complaint: Nausea/Vomiting/Diarrhea Stated Complaint: DIARRHEA/VOMITING Time Seen by Provider: 10/21/17 14:26 Mode of Arrival: Ambulatory Information source: Patient Notes: 27-year-old female with hypertension, migraine headaches, rheumatoid arthritis, sarcoid presents with complaint of 3 days of nausea, vomiting, diarrhea and generalized abdominal pain. Patient states that the pain started first. She describes it as diffusely located and cramping. Patient had several episodes of diarrhea today which were nonbloody. She vomited just prior to arrival. She denies any recent travel, antibiotic use but she does have a at home that had similar symptoms that self resolved. I have greeted and performed a rapid initial assessment of this patient. A comprehensive ED assessment and evaluation of the patient including analysis of labs and imaging ( if obtained) and completion of medical decision making will be conducted by an additional ED provider. PHYSICAL EXAMINATION: GENERAL: Well-appearing, well-nourished and in no acute distress. HEAD: Atraumatic, normocephalic. EYES: Pupils equal round extraocular movements intact, conjunctiva are normal. ENT: Nares patent NECK: Normal range of motion LUNGS: No respiratory distress Musculoskeletal: Normal range of motion NEUROLOGICAL: Normal speech, normal gait. PSYCH: Normal mood, normal affect. SKIN: Warm, Dry, normal turgor, no rashes or lesions noted. TRAVEL OUTSIDE OF THE [place] IN LAST 30 DAYS: No - Related Data Allergies/Adverse Reactions: latex [Latex] Allergy (Intermediate, Verified 10/21/17 14:50) redness/blisters Past Medical History - Social History Chew tobacco use (# tins/day): No Frequency of alcohol use: None Drug Abuse: None - Past Medical History Cardiac Medical History: Reports: Hx Hypertension Pulmonary Medical History: Neurological Medical History: Reports: Hx Migraine Renal/ Medical History: Reports: Hx Ovarian Cysts. Denies: Hx Peritoneal Dialysis Musculoskeltal Medical History: Reports Hx Arthritis - rheumatoid arthritis, Reports Hx Fibromyalgia, Reports Hx Musculoskeletal Trauma Psychiatric Medical History: Reports: Hx Anxiety, Hx Depression Past Surgical History: Reports: Hx Appendectomy, Hx Section, Hx Cholecystectomy, Hx Orthopedic Surgery - right foot, Hx Tonsillectomy - Immunizations Immunizations up to date: Yes Hx Diphtheria, Pertussis, Tetanus Vaccination: Yes Physical Exam - Vital signs Vitals: Temp Pulse Resp BP Pulse Ox 97.8 F 94 16 134/109 H 97 10/21/17 14:18 10/21/17 14:18 10/21/17 14:18 10/21/17 14:18 10/21/17 14:18 Course - Vital Signs Vital signs: Temp Pulse Resp BP Pulse Ox 97.8 F 94 16 134/109 H 97 10/21/17 14:18 10/21/17 14:18 10/21/17 14:18 10/21/17 14:18 10/21/17 14:18
[2017-10-21] MEDS ORDERED: ONDANSETRON 4 MG TAB.RAPDIS PO ONE (16:15)
[2017-10-21] MEDS ORDERED: HYDROCODONE/ACETAMINOPHEN 5-325 MG TABLET PO ONE (16:16)
--- NOTE | 2017-10-21 16:16 | ER Document Report ---
ED GI/ - General Chief Complaint: Nausea/Vomiting/Diarrhea Stated Complaint: DIARRHEA/VOMITING Time Seen by Provider: 10/21/17 14:26 Mode of Arrival: Ambulatory Information source: Patient Notes: Patient is an obese 27-year-old female who presents to the ER today for 2 days of nausea, vomiting, watery diarrhea and diffuse abdominal cramping. Patient also admits to body aches and chills but denies fever that she knows of. She states that her had the symptoms just prior to her getting them. She denies that she has a history of Crohn's or ulcerative colitis, she denies any blood in her vomit or diarrhea. TRAVEL OUTSIDE OF THE [place] IN LAST 30 DAYS: No - Related Data Allergies/Adverse Reactions: latex [Latex] Allergy (Intermediate, Verified 10/21/17 14:50) redness/blisters Past Medical History - General Information source: Patient - Social History Smoking Status: Current Every Day Smoker Chew tobacco use (# tins/day): No Frequency of alcohol use: None Drug Abuse: None Family History: Arthritis, CAD, DM, Hyperlipidemia, Hypertension, Thyroid Disfunction, Other - Sarcoidosis Patient has suicidal ideation: No Patient has homicidal ideation: No - Past Medical History Cardiac Medical History: Reports: Hx Hypertension Pulmonary Medical History: Neurological Medical History: Reports: Hx Migraine Renal/ Medical History: Reports: Hx Ovarian Cysts. Denies: Hx Peritoneal Dialysis Musculoskeletal Medical History: Reports Hx Arthritis - rheumatoid arthritis, Reports Hx Fibromyalgia, Reports Hx Musculoskeletal Trauma Psychiatric Medical History: Reports: Hx Anxiety, Hx Depression Past Surgical History: Reports: Hx Appendectomy, Hx Section, Hx Cholecystectomy, Hx Orthopedic Surgery - right foot, Hx Tonsillectomy - Immunizations Immunizations up to date: Yes Hx Diphtheria, Pertussis, Tetanus Vaccination: Yes Review of Systems - Review of Systems Constitutional: See HPI EENT: No symptoms reported Cardiovascular: No symptoms reported Respiratory: No symptoms reported Gastrointestinal: See HPI Genitourinary: No symptoms reported Female Genitourinary: No symptoms reported Musculoskeletal: No symptoms reported Skin: No symptoms reported Hematologic/Lymphatic: No symptoms reported Neurological/Psychological: No symptoms reported Physical Exam - Vital signs Vitals: Temp Pulse Resp BP Pulse Ox 97.8 F 94 16 134/109 H 97 10/21/17 14:18 10/21/17 14:18 10/21/17 14:18 10/21/17 14:18 10/21/17 14:18 - Notes Notes: PHYSICAL EXAMINATION: GENERAL: Well-appearing and in no acute distress. HEAD: Atraumatic, normocephalic. EYES: Pupils equal round and reactive to light, extraocular movements intact, sclera anicteric, conjunctiva are normal. ENT: ear canals without erythema or foreign body, TMs pearly ross with good bony landmarks, nares patent, oropharynx clear without exudates. Moist mucous membranes. NECK: Normal range of motion, supple without lymphadenopathy LUNGS: CTAB and equal. No wheezes rales or rhonchi. HEART: Regular rate and rhythm without murmurs ABDOMEN: Soft, mild diffuse tenderness. No guarding, no rebound BACK: no vertebral tenderness, normal ROM GI/: no CVA tenderness EXTREMITIES: Normal range of motion, no pitting edema. No cyanosis. NEUROLOGICAL: Cranial nerves grossly intact. Normal sensory/motor exams. PSYCH: Normal mood, normal affect. SKIN: Warm, Dry, normal turgor, no rashes or lesions noted Course - Re-evaluation Re-evalutation: 10/21/17 17:53 Lab work is all unremarkable today, test negative. Patient feels better after pain medication and nausea medication. Patient be treated for viral syndrome. Patient is able to hold down chips, pound cake and apple juice without any nausea or vomiting here in the ER prior to discharge. 10/21/17 17:53 - Vital Signs Vital signs: Temp Pulse Resp BP Pulse Ox 97.8 F 94 16 134/109 H 97 10/21/17 14:18 10/21/17 14:18 10/21/17 14:18 10/21/17 14:18 10/21/17 14:18 - Laboratory Result Diagrams: 10/21/17 16:36 10/21/17 16:36 Laboratory results interpreted by me: 10/21/17 10/21/17 10/21/17 16:36 16:36 16:36 Hgb 11.1 L Hct 34.0 L MCH 25.9 L RDW 19.7 H Carbon Dioxide 32 H Glucose 70 L AST 103 H ALT 162 H Urine Protein 30 H Urine Bilirubin SMALL H Urine Urobilinogen 4.0 H Discharge - Discharge Clinical Impression: Nausea vomiting and diarrhea, Body aches Condition: Stable Disposition: HOME, SELF-CARE Additional Instructions: Return immediately for any new or worsening symptoms. Follow up with primary care provider, call tomorrow to make followup appointment. Prescriptions: Dicyclomine HCl [Bentyl 20 mg Tablet] 20 mg PO QID #40 tablet Ondansetron [Zofran Odt 4 mg Tablet] 1 - 2 tab PO Q4H PRN #30 tab.rapdis PRN Reason: For Nausea/Vomiting Forms: Return to Work
[2017-10-21 16:56] LABS: ABSOLUTE EOSINOPHILS # (AUTO) 0.4 10^3/uL (0.0-0.6); ABSOLUTE MONOCYTES (AUTO) 0.5 10^3/uL (0.1-1.4); ABSOLUTE NEUT (AUTO) 3.9 10^3/uL (1.7-8.2); BASOPHILS % (AUTO) 0.5 % (0-2); EOSINOPHILS % (AUTO) 5.9 % (0-6); HEMOGLOBIN 11.1 g/dL (12.0-15.5); LYMPHOCYTES % (AUTO) 29.1 % (13-45); MEAN CORPUSCULAR HEMOGLOBIN 25.9 pg (27.0-33.4); MEAN CORPUSCULAR HGB CONC 32.5 g/dL (32.0-36.0); MEAN CORPUSCULAR VOLUME 80 fl (80-97); PLATELET COUNT 332 10^3/uL (150-450); RED BLOOD COUNT 4.27 10^6/uL (3.72-5.28); RED CELL DISTRIBUTION WIDTH 19.7 % (11.5-14.0); SEGMENTED NEUTROPHILS % (AUTO) 57.5 % (42-78); TOTAL CELLS COUNTED % (AUTO) 100 %; WHITE BLOOD COUNT 6.8 10^3/uL (4.0-10.5)
[2017-10-21 17:04] LABS: APPEARANCE,URINE CLOUDY; BILIRUBIN,URINE SMALL (NEGATIVE); COLOR,URINE AMBER; GLUCOSE, URINE NEGATIVE (NEGATIVE); KETONES,URINE NEGATIVE (NEGATIVE); LEUKOCYTE ESTERASE,URINE NEGATIVE (NEGATIVE); NITRITE,URINE NEGATIVE (NEGATIVE); PROTEIN,URINE 30 mg/dL (NEGATIVE); URINE SPECIFIC GRAVITY 1.026
[2017-10-21 17:13] LABS: ALANINE AMINOTRANSFERASE 162 U/L (9-52); ALBUMIN 3.6 g/dL (3.5-5.0); ALKALINE PHOSPHATASE 114 U/L (38-126); ANION GAP 7 (5-19); ASPARTATE AMINO TRANSFERASE 103 U/L (14-36); BILIRUBIN,DIRECT 0.4 mg/dL (0.0-0.4); BILIRUBIN,TOTAL 0.4 mg/dL (0.2-1.3); BLOOD UREA NITROGEN 10 mg/dL (7-20); CALCIUM 9.5 mg/dL (8.4-10.2); CARBON DIOXIDE 32 mmol/L (22-30); CHLORIDE 105 mmol/L (98-107); GLUCOSE 70 mg/dL (75-110); LIPASE 169.7 U/L (23-300); POTASSIUM 4.1 mmol/L (3.6-5.0); SODIUM 144.3 mmol/L (137-145); TOTAL PROTEIN 6.8 g/dL (6.3-8.2)
== END 2017-10-21 18:34 | disposition home or self-care (01) ==
LOC: ER 13:57
DX: R11.0 Nausea (principal); R50.9 Fever, unspecified; R10.11 Right upper quadrant pain; F17.200 Nicotine dependence, unspecified, uncomplicated
CPT/HCPCS: 99284; 36415; 83690; 85025; 81025; 80053; 81001; J3490; S0119

== ENCOUNTER 2017-10-29 19:09 | Emergency (ER) | payer MEDICAID ==
[2017-10-29 22:42] LABS: ALANINE AMINOTRANSFERASE 55 U/L (9-52); ALBUMIN 3.9 g/dL (3.5-5.0); ALKALINE PHOSPHATASE 105 U/L (38-126); ANION GAP 14 (5-19); ASPARTATE AMINO TRANSFERASE 34 U/L (14-36); BILIRUBIN,DIRECT 0.3 mg/dL (0.0-0.4); BILIRUBIN,TOTAL 0.3 mg/dL (0.2-1.3); BLOOD UREA NITROGEN 4 mg/dL (7-20); CALCIUM 9.7 mg/dL (8.4-10.2); CARBON DIOXIDE 26 mmol/L (22-30); CHLORIDE 102 mmol/L (98-107); GLUCOSE 95 mg/dL (75-110); LIPASE 45.7 U/L (23-300); POTASSIUM 4.2 mmol/L (3.6-5.0); SODIUM 141.9 mmol/L (137-145); TOTAL PROTEIN 7.1 g/dL (6.3-8.2)
[2017-10-29 22:46] LABS: ABSOLUTE EOSINOPHILS # (AUTO) 0.3 10^3/uL (0.0-0.6); ABSOLUTE LYMPHOCYTES (AUTO) 2.1 10^3/uL (0.5-4.7); ABSOLUTE MONOCYTES (AUTO) 0.6 10^3/uL (0.1-1.4); ABSOLUTE NEUT (AUTO) 10.8 10^3/uL (1.7-8.2); BASOPHILS % (AUTO) 0.3 % (0-2); EOSINOPHILS % (AUTO) 2.4 % (0-6); HEMATOCRIT 34.8 % (36.0-47.0); LYMPHOCYTES % (AUTO) 15.4 % (13-45); MEAN CORPUSCULAR HEMOGLOBIN 25.5 pg (27.0-33.4); MEAN CORPUSCULAR HGB CONC 31.8 g/dL (32.0-36.0); MEAN CORPUSCULAR VOLUME 80 fl (80-97); MONOCYTES % (AUTO) 4.3 % (3-13); RED BLOOD COUNT 4.32 10^6/uL (3.72-5.28); RED CELL DISTRIBUTION WIDTH 19.4 % (11.5-14.0); SEGMENTED NEUTROPHILS % (AUTO) 77.6 % (42-78); TOTAL CELLS COUNTED % (AUTO) 100 %; WHITE BLOOD COUNT 13.9 10^3/uL (4.0-10.5)
[2017-10-29 22:54] LABS: APPEARANCE,URINE CLEAR; BILIRUBIN,URINE NEGATIVE (NEGATIVE); COLOR,URINE STRAW; GLUCOSE, URINE NEGATIVE (NEGATIVE); KETONES,URINE NEGATIVE (NEGATIVE); LEUKOCYTE ESTERASE,URINE NEGATIVE (NEGATIVE); NITRITE,URINE NEGATIVE (NEGATIVE); PROTEIN,URINE NEGATIVE (NEGATIVE); URINE SPECIFIC GRAVITY 1.008; UROBILINOGEN,URINE NEGATIVE mg/dL (<2.0)
[2017-10-29 23:08] LABS: PLATELET COUNT 134 10^3/uL (150-450)
[2017-10-29] MEDS ORDERED: KETOROLAC TROMETHAMINE 60 MG/2 ML SDV IM ONE (23:49)
--- NOTE | 2017-10-29 23:52 | ER Document Report ---
ED General Pain - General Chief Complaint: Pain All Over Stated Complaint: PAIN ALL OVER Time Seen by Provider: 10/29/17 22:16 Mode of Arrival: Ambulatory Information source: Patient Notes: Patient is a 27-year-old female with a history of sarcoidosis who comes to the ER today for chronic pain all over her body. Patient states she has nothing to take for pain at home. She has followed up with the apartment coordinator that I gave her last time she was here for pain all over her body and has been started on methotrexate injections which she gets once weekly. Patient denies any other symptoms. TRAVEL OUTSIDE OF THE [place] IN LAST 30 DAYS: No - Related Data Allergies/Adverse Reactions: latex [Latex] Allergy (Intermediate, Verified 10/21/17 14:50) redness/blisters Past Medical History - General Information source: Patient - Social History Smoking Status: Current Every Day Smoker Frequency of alcohol use: None Drug Abuse: None Family History: Arthritis, CAD, DM, Hyperlipidemia, Hypertension, Thyroid Disfunction, Other - Sarcoidosis Patient has suicidal ideation: No Patient has homicidal ideation: No - Past Medical History Cardiac Medical History: Reports: Hx Hypertension Pulmonary Medical History: Neurological Medical History: Reports: Hx Migraine Renal/ Medical History: Reports: Hx Ovarian Cysts. Denies: Hx Peritoneal Dialysis Musculoskeletal Medical History: Reports Hx Arthritis, Reports Hx Fibromyalgia, Reports Hx Musculoskeletal Trauma Psychiatric Medical History: Reports: Hx Anxiety, Hx Depression Past Surgical History: Reports: Hx Appendectomy, Hx Section, Hx Cholecystectomy, Hx Orthopedic Surgery - right foot, Hx Tonsillectomy - Immunizations Immunizations up to date: Yes Hx Diphtheria, Pertussis, Tetanus Vaccination: Yes Review of Systems - Review of Systems Constitutional: No symptoms reported EENT: No symptoms reported Cardiovascular: No symptoms reported Respiratory: No symptoms reported Gastrointestinal: No symptoms reported Genitourinary: No symptoms reported Female Genitourinary: No symptoms reported Musculoskeletal: See HPI Skin: No symptoms reported Hematologic/Lymphatic: No symptoms reported Neurological/Psychological: No symptoms reported Physical Exam - Vital signs Vitals: Temp Pulse Resp BP Pulse Ox 97.8 F 116 H 18 162/98 H 97 10/29/17 19:44 10/29/17 19:44 10/29/17 19:44 10/29/17 19:44 10/29/17 19:44 - Notes Notes: PHYSICAL EXAMINATION: GENERAL: Chronically ill-appearing, otherwise in no acute distress. HEAD: Atraumatic, normocephalic. EYES: Pupils equal round and reactive to light, extraocular movements intact, sclera anicteric, conjunctiva are normal. ENT: ear canals without erythema or foreign body, TMs pearly ross with good bony landmarks, nares patent, oropharynx clear without exudates. Moist mucous membranes. NECK: Normal range of motion, supple without lymphadenopathy LUNGS: CTAB and equal. No wheezes rales or rhonchi. HEART: Regular rate and rhythm without murmurs ABDOMEN: Soft, no tenderness. No guarding, no rebound BACK: no vertebral tenderness, normal ROM GI/: no CVA tenderness EXTREMITIES: Normal range of motion, no pitting edema. No cyanosis. NEUROLOGICAL: Cranial nerves grossly intact. Normal sensory/motor exams. PSYCH: Normal mood, normal affect. SKIN: Warm, Dry, normal turgor, no rashes or lesions noted Course - Re-evaluation Re-evalutation: 10/29/17 23:51 Lab work is really unremarkable today, I did give her a Toradol injection today for pain. I advised that she follow-up with her primary care doctor and apartment coordinator. - Vital Signs Vital signs: Temp Pulse Resp BP Pulse Ox 97.8 F 116 H 18 162/98 H 97 10/29/17 19:44 10/29/17 19:44 10/29/17 19:44 10/29/17 19:44 10/29/17 19:44 - Laboratory Result Diagrams: 10/29/17 22:07 10/29/17 22:07 Laboratory results interpreted by me: 10/29/17 10/29/17 22:07 22:07 WBC 13.9 H Hgb 11.0 L Hct 34.8 L MCH 25.5 L MCHC 31.8 L RDW 19.4 H Plt Count 134 L Absolute Neutrophils 10.8 H BUN 4 L ALT 55 H Discharge - Discharge Clinical Impression: Chronic pain Qualifiers: Chronic pain type: other chronic pain Qualified Code(s): G89.29 - Other chronic pain Condition: Stable Disposition: HOME, SELF-CARE Additional Instructions: Return immediately for any new or worsening symptoms. Follow up with primary care provider, call tomorrow to make followup appointment.
[2017-10-30 00:22] VITALS: BP 120/97
== END 2017-10-30 00:23 | disposition home or self-care (01) ==
LOC: ER 19:09
DX: G89.29 Other chronic pain (principal); I10 Essential (primary) hypertension; F17.200 Nicotine dependence, unspecified, uncomplicated; Z91.041 Radiographic dye allergy status
CPT/HCPCS: 99283; 96372; 36415; 84702; 83690; 85025; 80053; 81001; J1885

== ENCOUNTER 2017-11-13 19:06 | Emergency (ER) | payer MEDICAID ==
[2017-11-13] MEDS ORDERED: NORMAL SALINE 1000 ML 1,000 ML IV PRN (19:59)
[2017-11-13] MEDS ORDERED: FENTANYL CITRATE INJ/PF 100 MCG/2 ML AMPUL IV ONE (20:00)
[2017-11-13] MEDS ORDERED: ONDANSETRON HCL INJ/PF 4 MG/2 ML SDV IV ONE (20:00)
--- NOTE | 2017-11-13 20:01 | ER Document Report ---
ED Medical Screen (RME) - General TRAVEL OUTSIDE OF THE [place] IN LAST 30 DAYS: No <CAPRI GRECO - Last Filed: 11/13/17 20:00> - General Information source: Patient - HPI Patient complains to provider of: Abdominal pain in the right upper quadrant Onset: Last week - 27-year-old morbidly obese female who presents for evaluation of pain in the right upper quadrant which she says she believes is related to her liver, she has been seen for this pain in the past as recently as 3 weeks prior and told that she has fatty liver disease, she has had her gallbladder removed as well as her appendix in the past. She has had the pain which has been cramping in the right upper quadrant over the last 3 weeks generally goes away on its own. Nothing seems to make it any better other than time. Nothing seems to make it worse. She denies any emesis fevers chills nausea diarrhea constipation dysuria. She does have a history of sarcoidosis and is currently on medications for this. <BAMBI SINCLAIR - Last Filed: 11/14/17 05:20> - General Chief Complaint: Abdominal Pain Stated Complaint: LIVER PAIN Time Seen by Provider: 11/13/17 19:54 Notes: 27 years old female with a history of rheumatoid arthritis SLE status post cholecystectomy presents today with right upper quadrant abdominal pain which is sharp and moderate to severe in intensity. Since this evening. Nauseous but no vomiting. Denies any diarrhea dysuria frequency urgency. ( CAPRI GRECO) - Related Data Allergies/Adverse Reactions: latex [Latex] Allergy (Intermediate, Verified 10/21/17 14:50) redness/blisters Past Medical History - Social History Frequency of alcohol use: None Drug Abuse: None - Past Medical History Cardiac Medical History: Reports: Hx Hypertension Pulmonary Medical History: Neurological Medical History: Reports: Hx Migraine Renal/ Medical History: Reports: Hx Ovarian Cysts. Denies: Hx Peritoneal Dialysis Musculoskeltal Medical History: Reports Hx Arthritis, Reports Hx Fibromyalgia, Reports Hx Musculoskeletal Trauma Psychiatric Medical History: Reports: Hx Anxiety, Hx Depression Past Surgical History: Reports: Hx Appendectomy, Hx Section, Hx Cholecystectomy, Hx Orthopedic Surgery - right foot x2, Hx Tonsillectomy - Immunizations Immunizations up to date: Yes Hx Diphtheria, Pertussis, Tetanus Vaccination: Yes <CAPRI GRECO - Last Filed: 11/13/17 20:00> - General Information source: Patient - Social History Cigarette use (# per day): Yes Chew tobacco use (# tins/day): No <BAMBI SINCLAIR Elliott - Last Filed: 11/14/17 05:20> Review of Systems - Review of Systems -: Yes All other systems reviewed and negative <BAMBI SINCLAIR Elliott - Last Filed: 11/14/17 05:20> Physical Exam - General General appearance: Appears well In distress: None - HEENT Head: Normocephalic Eyes: Normal Conjunctiva: Normal - Respiratory Respiratory status: No respiratory distress Chest status: Nontender Breath sounds: Normal Chest palpation: Normal - Cardiovascular Rhythm: Regular Heart sounds: Normal auscultation - Abdominal Inspection: Morbidly Obese Distension: No distension Bowel sounds: Normal Tenderness: Tender - Back Back: Normal - Extremities General upper extremity: Normal inspection General lower extremity: Normal inspection - Neurological Neuro grossly intact: Yes Cognition: Normal Orientation: AAOx4 <BAMBI SINCLAIR Elliott - Last Filed: 11/14/17 05:20> - Vital signs Vitals: Temp Pulse Resp BP Pulse Ox 97.6 F 90 18 143/64 H 97 11/13/17 19:25 11/13/17 19:25 11/13/17 19:25 11/13/17 19:25 11/13/17 19:25 Course <CAPRI GRECO - Last Filed: 11/13/17 20:00> - Laboratory Result Diagrams: 11/13/17 20:25 11/13/17 20:25 <BAMBI SINCLAIR Elliott - Last Filed: 11/14/17 05:20> - Re-evaluation Re-evalutation: 11/14/17 05:16 This 27-year-old female presents for evaluation of right upper quadrant abdominal pain she attributes to her fatty liver. On examination the patient is morbidly obese, she does not have a gallbladder she does not have an appendix. She does not have any focal tenderness no appreciable rebound or guarding. She does not have any systemic signs of infection at this time. She has got modestly elevated LFTs as a result of her fatty liver disease, otherwise difficult to assess what might be underlying her symptoms. Spoke with the patient about the importance of following up with her primary physician for ongoing problems. I am uncertain what might be causing these symptoms at this time, it is potential that is related to her fatty liver disease potentially some other etiology though it is unclear at this time. She was given return precautions and encouraged to follow-up as previously instructed. (BAMBI SINCLAIR) - Vital Signs Vital signs: Temp Pulse Resp BP Pulse Ox 97.8 F 114 H 18 129/74 H 98 11/14/17 00:44 11/14/17 00:44 11/13/17 19:25 11/14/17 00:44 11/14/17 00:44 - Laboratory Laboratory results interpreted by me: 11/13/17 11/13/17 20:25 20:25 MCH 25.7 L RDW 19.2 H Eosinophils % 6.7 H Absolute Eosinophils 0.7 H BUN 5 L AST 51 H ALT 69 H Doctor's Discharge <CAPRI GRECO - Last Filed: 11/13/17 20:00> <BAMBI SINCLAIR - Last Filed: 11/14/17 05:20> - Discharge Clinical Impression: Abdominal pain Qualifiers: Abdominal location: generalized Qualified Code(s): R10.84 - Generalized abdominal pain Condition: Good Disposition: HOME, SELF-CARE Instructions: Abdominal Pain ([facility]) Additional Instructions: Call your doctor tomorrow for evaluation of abdominal pain. It may be related to your fatty liver. It may be another cause. Return for worsening fevers or chills and inability to eat or drink or other symptoms. Continue to lose weight as you have been, return for any worsening pain. Prescriptions: Hydrocodone/Acetaminophen [[place] 5-325 mg Tabs (6 Tab/ER Disp)] 6 tab PO Q8 #6 dspk Hydrocodone/Acetaminophen [[place] 5-325 mg Tablet] 1 tab PO Q8 #10 tablet
[2017-11-13 20:45] LABS: ABSOLUTE BASOPHILS # (AUTO) 0.1 10^3/uL (0.0-0.2); ABSOLUTE EOSINOPHILS # (AUTO) 0.7 10^3/uL (0.0-0.6); ABSOLUTE LYMPHOCYTES (AUTO) 3.4 10^3/uL (0.5-4.7); ABSOLUTE MONOCYTES (AUTO) 0.4 10^3/uL (0.1-1.4); ABSOLUTE NEUT (AUTO) 5.3 10^3/uL (1.7-8.2); BASOPHILS % (AUTO) 0.7 % (0-2); EOSINOPHILS % (AUTO) 6.7 % (0-6); HEMATOCRIT 37.3 % (36.0-47.0); LYMPHOCYTES % (AUTO) 34.5 % (13-45); MEAN CORPUSCULAR HEMOGLOBIN 25.7 pg (27.0-33.4); MEAN CORPUSCULAR HGB CONC 32.1 g/dL (32.0-36.0); MEAN CORPUSCULAR VOLUME 80 fl (80-97); MONOCYTES % (AUTO) 4.1 % (3-13); PLATELET COUNT 366 10^3/uL (150-450); RED BLOOD COUNT 4.66 10^6/uL (3.72-5.28); RED CELL DISTRIBUTION WIDTH 19.2 % (11.5-14.0); TOTAL CELLS COUNTED % (AUTO) 100 %; WHITE BLOOD COUNT 9.9 10^3/uL (4.0-10.5)
[2017-11-13 21:11] LABS: ALANINE AMINOTRANSFERASE 69 U/L (9-52); ALBUMIN 4.3 g/dL (3.5-5.0); ALKALINE PHOSPHATASE 94 U/L (38-126); ANION GAP 12 (5-19); ASPARTATE AMINO TRANSFERASE 51 U/L (14-36); BILIRUBIN,DIRECT 0.3 mg/dL (0.0-0.4); BILIRUBIN,TOTAL 0.4 mg/dL (0.2-1.3); BLOOD UREA NITROGEN 5 mg/dL (7-20); CARBON DIOXIDE 28 mmol/L (22-30); CHLORIDE 103 mmol/L (98-107); GLUCOSE 90 mg/dL (75-110); LIPASE 58.5 U/L (23-300); SODIUM 143.3 mmol/L (137-145); TOTAL PROTEIN 7.8 g/dL (6.3-8.2)
--- NOTE | 2017-11-13 22:03 | RADIOLOGY REPORT (SQ) ---
EXAM DESCRIPTION: U/S ABDOMEN COMPLETE W/O DOP COMPLETED DATE/TIME: 11/13/2017 9:16 pm REASON FOR STUDY: Abdominal pain COMPARISON: None. TECHNIQUE: Dynamic and static grayscale images acquired of the abdomen and recorded on PACS. Additio nal selected color Doppler and spectral images recorded. LIMITATIONS: Gas. Body habitus. FINDINGS: PANCREAS: Poorly seen. LIVER: There is increased echogenicity in the liver. The liver is not well seen. LIVER VASCULATURE: Normal directional flow of the main portal vein and hepatic veins. GALLBLADDER: Surgically absent. ULTRASOUND-DETECTED LOWE'S SIGN: Not applicable. INTRAHEPATIC DUCTS AND COMMON DUCT: CBD and intrahepatic ducts normal caliber. No filling defects. INFERIOR VENA CAVA: Not seen. AORTA: No aneurysm in the mid aorta. The proximal and distal aorta were not well seen. RIGHT KIDNEY: Normal size, 10 cm. Normal echogenicity. No solid or suspicious masses. No hydronephro sis. No calcifications. PERITONEAL AND RIGHT PLEURAL SPACE: No ascites or effusions. OTHER: No other significant finding. IMPRESSION: Fatty infiltration of the liver. Status post cholecystectomy. Study limited. TECHNICAL DOCUMENTATION: JOB ID: [id number] [employer]- All Rights Reserved Reading location - IP/workstation name: [email or web address]
[2017-11-14] MEDS ORDERED: HYDROCODONE/ACETAMINOPHEN 5-325 MG (6 TAB/ER DISP) PO PRN (00:43)
[2017-11-14 00:48] VITALS: BP 129/74
--- NOTE | 2017-11-14 11:35 | EKG REPORT ---
SEVERITY:- NORMAL ECG - SINUS TACHYCARDIA : Confirmed by: Kailyn Swenson MD 14-Nov-2017 11:35:36
== END 2017-11-14 00:48 | disposition home or self-care (01) ==
LOC: ER 19:06
DX: R10.84 Generalized abdominal pain (principal); R10.11 Right upper quadrant pain; K76.0 Fatty (change of) liver, not elsewhere classified; E66.01 Morbid (severe) obesity due to excess calories; Z90.49 Acquired absence of other specified parts of digestive tract; I10 Essential (primary) hypertension
CPT/HCPCS: 93005; 99284; 96374; 96375; 36415; 83690; 85025; 80053; 76700; 93010; J3010; J2405

== ENCOUNTER 2017-12-13 22:21 | Emergency (ER) | payer MEDICAID ==
[2017-12-14] MEDS ORDERED: PROMETHAZINE HCL 25 MG TABLET PO ONE (00:40)
[2017-12-14] MEDS ORDERED: HYDROCODONE/ACETAMINOPHEN 5-325 MG TABLET PO ONE (00:40)
--- NOTE | 2017-12-14 00:40 | ER Document Report ---
ED Medical Screen (RME) - General Chief Complaint: Flank Pain Stated Complaint: BACK PAIN,LEGS SWELLING Time Seen by Provider: 12/14/17 00:33 Notes: 27-year-old female with medical history that includes sarcoidosis and psoriatic arthritis on methotrexate with chief complaint of symptoms of flank pain, dysuria, abdominal pain, mid upper abdominal pain, vomiting, and lower extremity swelling since yesterday. No fever, no shortness of breath or chest pain. TRAVEL OUTSIDE OF THE [place] IN LAST 30 DAYS: No - Related Data Allergies/Adverse Reactions: latex [Latex] Allergy (Intermediate, Verified 10/21/17 14:50) redness/blisters Past Medical History - Past Medical History Cardiac Medical History: Reports: Hx Hypertension Pulmonary Medical History: Neurological Medical History: Reports: Hx Migraine Renal/ Medical History: Reports: Hx Ovarian Cysts. Denies: Hx Peritoneal Dialysis Musculoskeltal Medical History: Reports Hx Arthritis, Reports Hx Fibromyalgia, Reports Hx Musculoskeletal Trauma Psychiatric Medical History: Reports: Hx Anxiety, Hx Depression Past Surgical History: Reports: Hx Appendectomy, Hx Section, Hx Cholecystectomy, Hx Orthopedic Surgery - right foot x2, Hx Tonsillectomy - Immunizations Immunizations up to date: Yes Hx Diphtheria, Pertussis, Tetanus Vaccination: Yes Physical Exam - Vital signs Vitals: Temp Pulse Resp BP Pulse Ox 97.6 F 107 H 20 92/51 L 100 12/13/17 22:37 12/13/17 22:37 12/13/17 22:37 12/13/17 22:37 12/13/17 22:37 - General General appearance: Appears well In distress: None - Abdominal Tenderness: Nontender. No: Tender - Back Back: Tender - Generalized tenderness of the mid back Course - Re-evaluation Re-evalutation: Heart rate borderline with mild tachycardia, patient states she missed her propanolol dose. Blood pressure rechecked by me in triage, 130s systolic. - Vital Signs Vital signs: Temp Pulse Resp BP Pulse Ox 97.6 F 107 H 20 92/51 L 100 12/13/17 22:37 12/13/17 22:37 12/13/17 22:37 12/13/17 22:37 12/13/17 22:37
[2017-12-14 00:56] LABS: APPEARANCE,URINE CLOUDY; BILIRUBIN,URINE NEGATIVE (NEGATIVE); COLOR,URINE YELLOW; GLUCOSE, URINE NEGATIVE (NEGATIVE); KETONES,URINE TRACE mg/dL (NEGATIVE); LEUKOCYTE ESTERASE,URINE NEGATIVE (NEGATIVE); NITRITE,URINE NEGATIVE (NEGATIVE); PROTEIN,URINE 30 mg/dL (NEGATIVE); URINE SPECIFIC GRAVITY 1.027
[2017-12-14] MEDS ORDERED: ONDANSETRON HCL INJ/PF 4 MG/2 ML SDV IV ONE (01:52)
[2017-12-14] MEDS ORDERED: NORMAL SALINE 1000 ML 1,000 ML IV ONE (01:52)
[2017-12-14] MEDS ORDERED: KETOROLAC TROMETHAMINE INJ/PF 30 MG/1 ML SDV IV ONE (01:52)
--- NOTE | 2017-12-14 01:57 | ER Document Report ---
ED General - General Chief Complaint: Flank Pain Stated Complaint: BACK PAIN,LEGS SWELLING Time Seen by Provider: 12/14/17 00:33 TRAVEL OUTSIDE OF THE [place] IN LAST 30 DAYS: No - HPI Notes: Patient is a 27-year-old female that presents to the emergency department for chief complaint of bilateral flank pain, dysuria. Patient presents to the emergency room for bilateral flank pain and dysuria. Symptoms started yesterday. She states she initially had pain in her left flank and is now having pain in the right. Pain is worse with movement. She did not have relief of pain with home pain medication. She denies any relieving factors. She does report associated chills and nausea/vomiting. She denies diarrhea and constipation. She does have a history of kidney stones and states this feels similar. She does endorse recent yeast infection with dysuria however her yeast symptoms have resolved at this time. Past Medical History: Psoriatic arthritis, sarcoidosis Past Surgical History: Cholecystectomy, appendectomy, multiple foot surgeries, C -section, tonsils and adenoids Social History: Daily tobacco, denies alcohol and drug use Family History: Reviewed and noncontributory for presenting illness Allergies: Reviewed, see documented allergy list. REVIEW OF SYSTEMS: CONSTITUTIONAL : No fever chills No diaphoresis No recent illness EENT: No vision changes No congestion No sore throat CARDIOVASCULAR: No chest pain No palpitations No shortness of breath RESPIRATORY: No shortness of breath No cough No difficulty breathing GASTROINTESTINAL: No abdominal pain nausea vomiting No diarrhea GENITOURINARY: dysuria Bilateral flank pain No hematuria No difficulty urinating MUSCULOSKELETAL: No back pain No leg pain No arm pain SKIN: No rashes No lesions LYMPHATIC: No swollen, enlarged glands. NEUROLOGICAL: No lightheadedness No headache No weakness No paresthesias PSYCHIATRIC: No anxiety No depression PHYSICAL EXAMINATION: Vital signs reviewed, nursing noted reviewed. GENERAL: Well-appearing, well-nourished and in no acute distress. HEAD: Atraumatic, normocephalic. EYES: Eyes appear normal, extraocular movements intact, sclera anicteric, conjunctiva are normal. ENT: nares patent, oropharynx clear without exudates. Moist mucous membranes. NECK: Normal range of motion, supple without lymphadenopathy LUNGS: Breath sounds clear to auscultation bilaterally and equal. No wheezes rales or rhonchi. HEART: Regular rate and rhythm without murmurs ABDOMEN: Bilateral CVA tenderness. Soft, nontender, normoactive bowel sounds. No rebound, guarding, or rigidity. No masses appreciated. EXTREMITIES: Nontender, good range of motion. Trace pedal edema bilaterally, symmetric NEUROLOGICAL: No focal neurological deficits. Moves all extremities spontaneously Motor and sensory grossly intact on exam. PSYCH: Normal mood, normal affect. SKIN: Warm, Dry, normal turgor, no rashes or lesions noted on exposed skin - Related Data Allergies/Adverse Reactions: latex [Latex] Allergy (Intermediate, Verified 12/14/17 02:16) redness/blisters Past Medical History - Social History Smoking Status: Current Every Day Smoker Family History: Arthritis, CAD, DM, Hyperlipidemia, Hypertension, Thyroid Disfunction, Other - Sarcoidosis Patient has suicidal ideation: No Patient has homicidal ideation: No - Past Medical History Cardiac Medical History: Reports: Hx Hypertension Pulmonary Medical History: Neurological Medical History: Reports: Hx Migraine Renal/ Medical History: Reports: Hx Ovarian Cysts. Denies: Hx Peritoneal Dialysis Musculoskeletal Medical History: Reports Hx Arthritis, Reports Hx Fibromyalgia, Reports Hx Musculoskeletal Trauma Psychiatric Medical History: Reports: Hx Anxiety, Hx Depression Past Surgical History: Reports: Hx Appendectomy, Hx Section, Hx Cholecystectomy, Hx Orthopedic Surgery - right foot x2, Hx Tonsillectomy - Immunizations Immunizations up to date: Yes Hx Diphtheria, Pertussis, Tetanus Vaccination: Yes Review of Systems - Review of Systems Notes: Dictated Physical Exam - Vital signs Vitals: Temp Pulse Resp BP Pulse Ox 97.6 F 107 H 20 92/51 L 100 12/13/17 22:37 12/13/17 22:37 12/13/17 22:37 12/13/17 22:37 12/13/17 22:37 - Notes Notes: Dictated Course - Re-evaluation Re-evalutation: 12/14/17 01:57 Vitals reviewed and stable. Patient given IV hydration, antiemetics, and pain medication for symptomatic treatment. 12/14/17 04:16 On reevaluation patient is feeling much better. She was sleeping comfortably. Lab work is unremarkable. Urinalysis negative for infection. CT scan shows no ureterolithiasis or other acute process. She will follow with her primary care doctor in a few days for reevaluation. She will return for new or worsening symptoms. She is in agreement with the plan and stable at discharge. - Vital Signs Vital signs: Temp Pulse Resp BP Pulse Ox 97.5 F 104 H 18 117/68 99 12/14/17 02:55 12/14/17 02:55 12/14/17 02:55 12/14/17 02:55 12/14/17 02:55 - Laboratory Result Diagrams: 12/14/17 02:28 12/14/17 02:28 Laboratory results interpreted by me: 12/13/17 12/14/17 12/14/17 23:40 02:28 02:28 WBC 11.0 H Hgb 11.5 L Hct 35.6 L RDW 19.7 H AST 51 H ALT 60 H Urine Protein 30 H Urine Ketones TRACE H Urine Urobilinogen 2.0 H Urine Ascorbic Acid 40 H Discharge - Discharge Clinical Impression: Flank pain Condition: Stable Disposition: HOME, SELF-CARE Instructions: Toradol Injection ([facility]), Flank Pain ([facility]) Additional Instructions: Please return to the emergency department if you have any worsening, or concern of your symptoms. Please return to the emergency department if you develop chest pain, difficulty breathing, severe abdominal pain, or ongoing vomiting. Please follow-up with your primary care physician in 2-3 days and any other recommended physicians. If prescribed, take all medications as directed. If you have any questions or concerns do not hesitate to return the emergency department for evaluation. [] Referrals: LAURA PANTOJA MD [Primary Care Provider] - Follow up in 3-5 days
[2017-12-14 02:42] LABS: ABSOLUTE EOSINOPHILS # (AUTO) 0.6 10^3/uL (0.0-0.6); ABSOLUTE LYMPHOCYTES (AUTO) 3.4 10^3/uL (0.5-4.7); ABSOLUTE MONOCYTES (AUTO) 0.5 10^3/uL (0.1-1.4); ABSOLUTE NEUT (AUTO) 6.5 10^3/uL (1.7-8.2); BASOPHILS % (AUTO) 0.3 % (0-2); EOSINOPHILS % (AUTO) 5.2 % (0-6); HEMATOCRIT 35.6 % (36.0-47.0); HEMOGLOBIN 11.5 g/dL (12.0-15.5); LYMPHOCYTES % (AUTO) 30.8 % (13-45); MEAN CORPUSCULAR HEMOGLOBIN 27.2 pg (27.0-33.4); MEAN CORPUSCULAR HGB CONC 32.2 g/dL (32.0-36.0); MEAN CORPUSCULAR VOLUME 84 fl (80-97); MONOCYTES % (AUTO) 4.7 % (3-13); PLATELET COUNT 291 10^3/uL (150-450); RED BLOOD COUNT 4.22 10^6/uL (3.72-5.28); RED CELL DISTRIBUTION WIDTH 19.7 % (11.5-14.0); TOTAL CELLS COUNTED % (AUTO) 100 %
[2017-12-14 02:56] VITALS: BP 117/68
[2017-12-14 02:57] LABS: ALANINE AMINOTRANSFERASE 60 U/L (9-52); ALKALINE PHOSPHATASE 74 U/L (38-126); ANION GAP 11 (5-19); ASPARTATE AMINO TRANSFERASE 51 U/L (14-36); BILIRUBIN,DIRECT 0.3 mg/dL (0.0-0.4); BILIRUBIN,TOTAL 0.3 mg/dL (0.2-1.3); BLOOD UREA NITROGEN 9 mg/dL (7-20); CALCIUM 9.4 mg/dL (8.4-10.2); CARBON DIOXIDE 26 mmol/L (22-30); CHLORIDE 104 mmol/L (98-107); GLUCOSE 90 mg/dL (75-110); POTASSIUM 4.1 mmol/L (3.6-5.0); TOTAL PROTEIN 7.2 g/dL (6.3-8.2)
--- NOTE | 2017-12-14 03:09 | RADIOLOGY REPORT (SQ) ---
EXAM DESCRIPTION: CT ABDOMEN PELVIS WITHOUT IV CONTRAST COMPLETED DATE/TME: 12/14/2017 01:44 CLINICAL HISTORY: B flank pain COMPARISON: None Available. TECHNIQUE: CT of the abdomen and pelvis without IV contrast. Evaluation of the solid organs and vasculature is suboptimal due to lack of IV contrast. DLP: 1645.96 mGy-cm FINDINGS: Lung Bases: The visualized lung bases are clear. Bones: No destructive bone lesions identified. Abdomen: Liver: The liver has normal size and decreased density. Gallbladder: Prior cholecystectomy. Spleen, Pancreas, and Adrenal Glands: The spleen, pancreas, and adrenal glands are unremarkable. Kidneys: The kidneys have normal size and contour without evidence of hydronephrosis. No obstructing ureteral calculi. Vasculature: The aorta and IVC have normal caliber and position. Stomach: The stomach and duodenum have normal course. Other: No free intraperitoneal air. No free fluid or lymphadenopathy. Pelvis: Bladder: Urinary bladder is unremarkable. Bowel: No dilated loops of large or small bowel. Appendix: Not visualized. Pelvis: Uterus is not enlarged. IMPRESSION: 1. No acute inflammatory or obstructive process identified. 2. Hepatic steatosis. This exam was performed according to our departmental dose-optimization program, which includes automated exposure control, adjustment of the mA and/or kV according to patient size and/or use of iterative reconstruction technique.
== END 2017-12-14 04:34 | disposition home or self-care (01) ==
LOC: ER 22:21
DX: R10.9 Unspecified abdominal pain (principal); R30.0 Dysuria; R68.83 Chills (without fever); R11.2 Nausea with vomiting, unspecified; I10 Essential (primary) hypertension; Z87.442 Personal history of urinary calculi; F17.200 Nicotine dependence, unspecified, uncomplicated; Z91.040 Latex allergy status; Z87.42 Personal history of other diseases of the female genital tract; Z90.49 Acquired absence of other specified parts of digestive tract
CPT/HCPCS: 99284; 96361; 96374; 96375; 36415; 84703; 85025; 80053; 81001; 74176; J1885; J3490; J2405; J7030

== ENCOUNTER 2018-01-14 20:11 | Emergency (ER) | payer MEDICAID ==
[2018-01-14] MEDS ORDERED: DEXAMETHASONE SOD PHOS INJ 10 MG/1 ML VIAL IM ONE (21:27)
[2018-01-14] MEDS ORDERED: KETOROLAC TROMETHAMINE 60 MG/2 ML SDV IM ONE (21:29)
[2018-01-14] MEDS ORDERED: HYDROCODONE/ACETAMINOPHEN 5-325 MG (6 TAB/ER DISP) PO PRN (21:29)
--- NOTE | 2018-01-14 21:31 | ER Document Report ---
ED General - General Chief Complaint: Pain Stated Complaint: NECK/BACK/LEG PAIN Time Seen by Provider: 01/14/18 21:02 Notes: Patient is a 27-year-old female with a past medical history of morbid obesity, sarcoidosis, who presents with total body pain. She states the majority of her pain is to the right side of her neck as well as her mid back. States her symptoms started earlier yesterday, have been ongoing since that time. She has been seen in the emergency department on multiple occasions for the same. She is taking both Humira and methotrexate she states that these normally well controlled her symptoms but have failed to control her pain today. She describes as a aching, throbbing pain to the affected areas. Nothing has worsened or triggered the pain since it started. She contacted her vacuum applicator operator who apparently told her to come to the ER for pain control. TRAVEL OUTSIDE OF THE [place] IN LAST 30 DAYS: No - Related Data Allergies/Adverse Reactions: latex [Latex] Allergy (Intermediate, Verified 12/14/17 02:16) redness/blisters oral steroids Allergy (Uncoded 01/14/18 20:15) Past Medical History - General Information source: Patient - Social History Smoking Status: Current Every Day Smoker Chew tobacco use (# tins/day): No Frequency of alcohol use: None Drug Abuse: None Lives with: Family Family History: Arthritis, CAD, DM, Hyperlipidemia, Hypertension, Thyroid Disfunction, Other - Sarcoidosis Patient has suicidal ideation: No Patient has homicidal ideation: No - Past Medical History Cardiac Medical History: Reports: Hx Hypertension Pulmonary Medical History: Neurological Medical History: Reports: Hx Migraine Renal/ Medical History: Reports: Hx Ovarian Cysts. Denies: Hx Peritoneal Dialysis Musculoskeletal Medical History: Reports Hx Arthritis, Reports Hx Fibromyalgia, Reports Hx Musculoskeletal Trauma Psychiatric Medical History: Reports: Hx Anxiety, Hx Depression Past Surgical History: Reports: Hx Appendectomy, Hx Section, Hx Cholecystectomy, Hx Orthopedic Surgery - right foot x2, Hx Tonsillectomy - Immunizations Immunizations up to date: Yes Hx Diphtheria, Pertussis, Tetanus Vaccination: Yes Review of Systems - Review of Systems Notes: Constitutional: Negative for fever. HENT: Negative for sore throat. Eyes: Negative for visual changes. Cardiovascular: Negative for chest pain. Respiratory: Negative for shortness of breath. Gastrointestinal: Negative for abdominal pain, vomiting or diarrhea. Genitourinary: Negative for dysuria. Musculoskeletal: Positive for upper back, neck, leg pain Skin: Negative for rash. Neurological: Negative for headaches, weakness or numbness. 10 point ROS negative except as marked above and in HPI. Physical Exam - Vital signs Vitals: Temp Pulse Resp BP Pulse Ox 98.6 F 72 14 134/116 H 100 01/14/18 20:18 10 20:18 01/14/18 20:18 01/14/18 20:18 01/14/18 20:18 Interpretation: Normal Notes: PHYSICAL EXAMINATION: GENERAL: Well-appearing, well-nourished and in no acute distress. HEAD: Atraumatic, normocephalic. EYES: Pupils equal round and reactive to light, extraocular movements intact, sclera anicteric, conjunctiva are normal. ENT: nares patent, oropharynx clear without exudates. Moist mucous membranes. NECK: Normal range of motion, supple without lymphadenopathy LUNGS: Breath sounds clear to auscultation bilaterally and equal. No wheezes rales or rhonchi. HEART: Regular rate and rhythm without murmurs ABDOMEN: Soft, nontender, normoactive bowel sounds. No guarding, no rebound. No masses appreciated. EXTREMITIES: Normal range of motion, no pitting or edema. No cyanosis. NEUROLOGICAL: Face symmetric. Tongue protrudes midline. Extraocular motions intact. Pupils are 2 mm and equally reactive. Normal speech, normal gait. 5 out of 5 strength in both the distal and proximal upper and lower extremities bilaterally. Sensation is grossly intact throughout. Finger to nose testing normal. Pronator drift normal. PSYCH: Normal mood, normal affect. SKIN: Warm, Dry, normal turgor, no rashes or lesions noted. Course - Re-evaluation Re-evalutation: 01/14/18 21:30 Patient presents complaining of neck, back and diffuse body pain which she reports is an exacerbation of her underlying psoriatic arthritis. She is requesting a dose of steroids IM. Will give a dose of dexamethasone IM, very limited number of dispense [place] medication per her request. Vitals are within normal limits at triage and at time of discharge. Physical examination is unremarkable. Patient has tolerated oral intake without difficulty. Patient was not noted to be in distress at any point during their ER visit. At this time, based on the reassuring evaluation, I do not suspect an acute [place], pulmonary embolus, aortic dissection, acute intra-abdominal pathology, stroke, or sepsis.Will discharge with return precautions and follow-up recommendations. Verbal discharge instructions given a the bedside and opportunity for questions given. Medication warnings reviewed. Patient is in agreement with this plan and has verbalized understanding of return precautions and the need for primary care follow-up in the next 24-72 hours. - Vital Signs Vital signs: Temp Pulse Resp BP Pulse Ox 98.6 F 67 16 137/67 H 98 01/14/18 20:18 01/14/18 21:59 01/14/18 21:59 01/14/18 21:59 01/14/18 21:59 Discharge - Discharge Clinical Impression: Total body pain, Neck pain, Upper back pain Condition: Good Disposition: HOME, SELF-CARE Additional Instructions: Please return to the emergency room immediately if you experience any concerning symptoms including high fevers, severe headache, chest pain, difficulty breathing, abdominal pain, slurred speech, numbness or weakness in your arms or legs, or any other symptom that concerns you. Referrals: LAURA PANTOJA MD [Primary Care Provider] - Follow up as needed
[2018-01-14 22:00] VITALS: BP 137/67
== END 2018-01-14 21:59 | disposition home or self-care (01) ==
LOC: ER 20:11
DX: L40.50 Arthropathic psoriasis, unspecified (principal); Z79.899 Other long term (current) drug therapy; M54.2 Cervicalgia; M54.89 Other dorsalgia; M79.606 Pain in leg, unspecified; F17.200 Nicotine dependence, unspecified, uncomplicated; Z91.040 Latex allergy status; Z88.8 Allergy status to other drugs, medicaments and biological substances
CPT/HCPCS: 99283; 96372; J1885; J1100

== ENCOUNTER 2018-01-20 17:13 | Emergency (ER) | payer MEDICAID ==
--- NOTE | 2018-01-20 18:30 | ER Document Report ---
ED Neck/Back Problem - General Chief Complaint: Pain All Over Stated Complaint: BACK/LEG PAIN Time Seen by Provider: 01/20/18 17:41 Mode of Arrival: Ambulatory Information source: Patient Notes: 27-year-old female presented ED for complaint of flare of her arthritis with pain to her back legs and neck. She was seen here Sunday and treated for the same. She states she was given a prescription for some narcotics and would like more of these narcotics. Patient states she is on methotrexate and Humira for her psoriatic arthritis. She states she goes to [facility] for her rheumatology. Patient states this is a chronic pain problem. Patient is alert and oriented respirations regular and unlabored speaking in full sentences. TRAVEL OUTSIDE OF THE [place] IN LAST 30 DAYS: No - HPI Patient complains to provider of: Pain, Neck, Lower back Onset: Other - Chronic and legs Onset: Chronic Timing: Still present Quality of pain: Sharp Severity: Moderate Pain Level: 4 Context: Other - Flareup of her psoriatic arthritis Recent injury: No Associated symptoms: Like prior neck/back pain, Lower back pain, Other - Neck and legs this is psoriatic arthritis. denies: Constipation, Fever, Incontinence , Motor loss, Numbness/tingling, Radiation to arm, Radiation to chest, Radiation to leg, Sensory loss, Sweaty, Unable to urinate, Upper back pain Exacerbated by: Movement of trunk, Sitting position Relieved by: Nothing Similar symptoms previously: Yes Recently seen / treated by doctor: Yes - Related Data Allergies/Adverse Reactions: latex [Latex] Allergy (Intermediate, Verified 12/14/17 02:16) redness/blisters oral steroids Allergy (Uncoded 01/14/18 20:15) Past Medical History - General Information source: Patient - Social History Smoking Status: Current Every Day Smoker Cigarette use (# per day): Yes - Pack per day Smoking Education Provided: Yes - 4 minutes Frequency of alcohol use: None Drug Abuse: None Lives with: Family Family History: Arthritis, CAD, DM, Hyperlipidemia, Hypertension, Thyroid Disfunction, Other - Sarcoidosis Patient has suicidal ideation: No Patient has homicidal ideation: No - Past Medical History Cardiac Medical History: Reports: Hx Hypertension Pulmonary Medical History: Reports: None EENT Medical History: Reports: None Neurological Medical History: Reports: Hx Migraine Endocrine Medical History: Reports: None Renal/ Medical History: Reports: Hx Ovarian Cysts Malignancy Medical History: Reports: None GI Medical History: Reports: None Musculoskeletal Medical History: Reports Hx Arthritis, Reports Hx Fibromyalgia, Reports Hx Musculoskeletal Trauma Skin Medical History: Reports None Psychiatric Medical History: Reports: Hx Anxiety, Hx Depression Traumatic Medical History: Reports: Hx Fractures Past Surgical History: Reports: Hx Appendectomy, Hx Section, Hx Cholecystectomy, Hx Orthopedic Surgery - right foot x2, Hx Tonsillectomy - Immunizations Immunizations up to date: Yes Hx Diphtheria, Pertussis, Tetanus Vaccination: Yes Review of Systems - Review of Systems Constitutional: No symptoms reported EENT: No symptoms reported Cardiovascular: No symptoms reported Respiratory: No symptoms reported Gastrointestinal: No symptoms reported Genitourinary: No symptoms reported Female Genitourinary: No symptoms reported Musculoskeletal: Back pain, Neck pain, Other - Bilateral leg pain due to her psoriatic arthritis Skin: No symptoms reported Hematologic/Lymphatic: No symptoms reported Neurological/Psychological: No symptoms reported -: Yes All other systems reviewed and negative Physical Exam - Vital signs Vitals: Temp Pulse Resp BP Pulse Ox 98.4 F 88 14 131/84 H 97 01/20/18 17:32 01/20/18 17:32 01/20/18 17:32 01/20/18 17:32 01/20/18 17:32 Interpretation: Normal - General General appearance: Appears well, Alert - HEENT Head: Normocephalic, Atraumatic Eyes: Normal Pupils: PERRL - Respiratory Respiratory status: No respiratory distress Chest status: Nontender Breath sounds: Normal Chest palpation: Normal - Cardiovascular Rhythm: Regular Heart sounds: Normal auscultation Murmur: No - Abdominal Inspection: Normal Distension: No distension Bowel sounds: Normal Tenderness: Nontender Organomegaly: No organomegaly - Back Back: Normal, Tender, Vertebra tenderness. No: Deformity/step-off, CVA tenderness, Scars, Scoliosis, Wounds - Extremities General upper extremity: Normal inspection, Nontender, Normal color, Normal ROM , Normal temperature General lower extremity: Normal inspection, Normal color, Normal ROM, Normal temperature, Normal weight bearing. No: Haley's sign Hip: Tender Thigh: Tender Knee: Tender Ankle: Tender - Neurological Neuro grossly intact: Yes Cognition: Normal Orientation: AAOx4 Randall Coma Scale Eye Opening: Spontaneous Randall Coma Scale Verbal: Oriented Ish Coma Scale Motor: Obeys Commands Randall Coma Scale Total: 15 Speech: Normal Motor strength normal: LUE, RUE, LLE, RLE Sensory: Normal - Psychological Associated symptoms: Normal affect, Normal mood - Skin Skin Temperature: Warm Skin Moisture: Dry Skin Color: Normal Course - Re-evaluation Re-evalutation: 01/20/18 23:25 Chronic pain policy discussed with patient and written copy of chronic pain policy given to patient. Patient was treated with ibuprofen Decadron and 1 Percocet while in the emergency room. 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 Patient verbalized understanding and agreement with treatment plan. Patient was discharged home. - Vital Signs Vital signs: Temp Pulse Resp BP Pulse Ox 98.0 F 88 18 116/64 98 01/20/18 19:09 01/20/18 19:09 01/20/18 19:09 01/20/18 19:09 01/20/18 19:09 Discharge - Discharge Clinical Impression: Psoriatic arthritis Condition: Stable Disposition: HOME, SELF-CARE Additional Instructions: Chronic Pain Control Stress, inactivity, and depression make pain more severe regardless of the cause of the pain. Stress and poor physical condition can cause pain such as headaches and backache. Relaxation: Rest in a quiet place with your eyes closed for 20 minutes twice daily. Concentrate on a pleasant image, or simply "feel" your breathing. Clear your mind. Stress management: Deal with your "stressors." Either take action, or eliminate the stressor from your life. Don't let things hang over you. Accept those things you can't change. Nutrition: Eat small, balanced meals -- don't skip, don't overeat. Meals should be high-carbohydrate, low-sugar, low-fat. Exercise: Exercise helps painful conditions and eases stress. Get 30 minutes of moderate exercise, five days a week. Do an activity that does not flare your pain. Precautions: Pain which continues to disrupt daily activities, or which changes in nature, requires a medical evaluation. Pain Clinic referral is available. We do not manage chronic pain in the Emergency Department. We will try to appropriately help you through an acute flare of your chronic painful condition , but for on-going chronic pain that does not improve, you will need to see your private doctor or painting machine operator. We do not provide repeated medication management of chronic painful conditions. If you wish, we can provide the name of local pain management physicians. Arthritis Your symptoms are due to arthritis. Arthritis is an inflammation of the joints. There are many types -- osteoarthritis (due to "wear and tear"), auto- immmune arthritis (such as rheumatoid, lupus, Everardo's, and others), and crystal -induced arthritis (such as gout and pseudogout). The physician's examination, combined with laboratory tests, will determine the cause of your arthritis. All types of arthritis are treated with antiinflammatory medications. Other medication may be required for special types of arthritis, or if your problem does not respond to the antiinflammatory medicine. Local warmth may be helpful. Move the involved joints through the full range of motion daily. Mild exercise is usually still possible for most persons with arthritis (ask your physician). Swimming provides good exercise without damaging the joints. Contact the physician if you are worsening in any way. STEROID MEDICATION: You have been given an injection of medicine of the cortisone/steroid class. This medication is used to control inflammation or allergy. It is often continued as a pill for a short period of time, until the acute process subsides. There are usually no side effects from short-term use of cortisone-like medications. Some persons feel an increased sense of well-being and are not sleepy at bedtime. Long-term use of cortisone medications is best avoided, unless required for a severe condition. If your condition does not remit, or relapses after the course of corticosteroid medication, you should consult your physician. Toradol Injection You have been given an injection of ketorolac tromethamine (Toradol). This is an excellent, safe drug for pain control. It also has potent antiinflammatory action. You should have significant pain relief within about one hour. Toradol is not addicting and is non-sedating. It does not interfere with driving or work. Call or return if you develop itching, hives, shortness of breath, or rash. You were given 1 Percocet while you were in the emergency room for your pain. We do not prescribe narcotics for chronic pain. You will need to follow-up with your primary care doctor if you normally take narcotics for your chronic pain. FOLLOW-UP CARE: If you have been referred to a physician for follow-up care, call the physician s office for an appointment as you were instructed or within the next two days. If you experience worsening or a significant change in your symptoms, notify the physician immediately or return to the Emergency Department at any time for re-evaluation. Forms: Elevated Blood Pressure, Smoking Cessation Education Referrals: LAURA PANTOJA MD [Primary Care Provider] - Follow up as needed
[2018-01-20] MEDS ORDERED: OXYCODONE-ACETAMINOPHEN 5-325 MG TABLET PO ONE (18:44)
[2018-01-20] MEDS ORDERED: DEXAMETHASONE SOD PHOS INJ 10 MG/1 ML VIAL IM ONE (18:44)
[2018-01-20] MEDS ORDERED: KETOROLAC TROMETHAMINE 60 MG/2 ML SDV IM ONE (18:44)
[2018-01-20 19:13] VITALS: BP 116/64
== END 2018-01-20 19:13 | disposition home or self-care (01) ==
LOC: ER 17:13
DX: L40.50 Arthropathic psoriasis, unspecified (principal); M54.5 Low back pain; M79.604 Pain in right leg; M79.605 Pain in left leg; M54.2 Cervicalgia; Z79.899 Other long term (current) drug therapy; G89.29 Other chronic pain; F17.210 Nicotine dependence, cigarettes, uncomplicated; I10 Essential (primary) hypertension
CPT/HCPCS: 99406; 99283; 96372; J1885; J1100

== ENCOUNTER 2018-01-22 17:12 | Emergency (ER) | payer MEDICAID ==
[2018-01-22] MEDS ORDERED: LIDOCAINE 5% (700 MG) TRANSDERMAL ADH..PATCH TP ONE ×2 (17:49→17:51)
--- NOTE | 2018-01-22 17:52 | ER Document Report ---
ED Neck/Back Problem - General Chief Complaint: Pain All Over Stated Complaint: BACK PAIN Time Seen by Provider: 01/22/18 17:52 Mode of Arrival: Wheelchair Information source: Patient Notes: 27-year-old female presented ED for complaint of pain to her neck back and legs. She states that after she was seen here on the she went to her primary care doctor today and they told her that this was not her chronic pain this was something different in its if she needed to she needed to return to the ED for narcotics. She states that he told her he did not give narcotics. 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 Patient does have a history of psoriatic arthritis and is on methotrexate and Humira for this. She states she is scheduled to go to [facility] for rheumatology and pain management. Patient is alert and oriented respirations regular and unlabored speaking in full sentences. Patient does have a long history of chronic pain. TRAVEL OUTSIDE OF THE [place] IN LAST 30 DAYS: No - HPI Patient complains to provider of: Pain, Neck, Upper back, Lower back. No: Injury Onset: Other Onset: Chronic - Chronic Timing: Still present Quality of pain: Sharp Severity: Severe Pain Level: 5 Recent injury: No Associated symptoms: Like prior neck/back pain, Radiation to arm, Radiation to leg, Lower back pain, Upper back pain. denies: Constipation, Incontinence, Motor loss, Numbness/tingling, Radiation to chest, Sensory loss, Sweaty, Unable to urinate Exacerbated by: Movement of trunk, Sitting position Relieved by: Nothing Similar symptoms previously: Yes Recently seen / treated by doctor: Yes - Related Data Allergies/Adverse Reactions: latex [Latex] Allergy (Intermediate, Verified 12/14/17 02:16) redness/blisters oral steroids Allergy (Uncoded 01/14/18 20:15) Past Medical History - General Information source: Patient - Social History Smoking Status: Current Every Day Smoker Cigarette use (# per day): Yes - Pack per day Chew tobacco use (# tins/day): No Smoking Education Provided: Yes - 4 minutes Frequency of alcohol use: None Drug Abuse: None Lives with: Family Family History: Arthritis, CAD, DM, Hyperlipidemia, Hypertension, Thyroid Disfunction, Other - Sarcoidosis Patient has suicidal ideation: No Patient has homicidal ideation: No - Past Medical History Cardiac Medical History: Reports: Hx Hypertension Pulmonary Medical History: Reports: None EENT Medical History: Reports: None Neurological Medical History: Reports: Hx Migraine Endocrine Medical History: Reports: None Renal/ Medical History: Reports: Hx Ovarian Cysts Malignancy Medical History: Reports: None GI Medical History: Reports: None Musculoskeletal Medical History: Reports Hx Arthritis, Reports Hx Fibromyalgia, Reports Hx Musculoskeletal Trauma Skin Medical History: Reports None Psychiatric Medical History: Reports: Hx Anxiety, Hx Depression Traumatic Medical History: Reports: Hx Fractures Infectious Medical History: Reports: None Past Surgical History: Reports: Hx Appendectomy, Hx Section, Hx Cholecystectomy, Hx Orthopedic Surgery - right foot x2, Hx Tonsillectomy - Immunizations Immunizations up to date: Yes Hx Diphtheria, Pertussis, Tetanus Vaccination: Yes Review of Systems - Review of Systems Constitutional: No symptoms reported EENT: No symptoms reported Cardiovascular: No symptoms reported Respiratory: No symptoms reported Gastrointestinal: No symptoms reported Genitourinary: No symptoms reported Female Genitourinary: No symptoms reported Musculoskeletal: Back pain, Muscle pain, Muscle stiffness, Neck pain Skin: No symptoms reported Hematologic/Lymphatic: No symptoms reported Neurological/Psychological: No symptoms reported -: Yes All other systems reviewed and negative Physical Exam - Vital signs Vitals: Temp Pulse Resp BP Pulse Ox 97.7 F 79 20 122/84 95 01/22/18 17:29 01/22/18 17:29 01/22/18 17:29 01/22/18 17:29 01/22/18 17:29 Interpretation: Normal - General General appearance: Appears well, Alert - HEENT Head: Normocephalic, Atraumatic Eyes: Normal Pupils: PERRL - Respiratory Respiratory status: No respiratory distress Chest status: Nontender Breath sounds: Normal Chest palpation: Normal - Cardiovascular Rhythm: Regular Heart sounds: Normal auscultation Murmur: No - Abdominal Inspection: Normal Distension: No distension Bowel sounds: Normal Tenderness: Nontender Organomegaly: No organomegaly - Back Back: Tender, Vertebra tenderness. No: Deformity/step-off, CVA tenderness, Scars, Scoliosis, Wounds - Extremities General upper extremity: Normal inspection, Nontender, Normal color, Normal ROM , Normal temperature General lower extremity: Normal inspection, Nontender, Normal color, Normal ROM , Normal temperature, Normal weight bearing. No: Haley's sign - Neurological Neuro grossly intact: Yes Cognition: Normal Orientation: AAOx4 Ish Coma Scale Eye Opening: Spontaneous [place] Coma Scale Verbal: Oriented Ish Coma Scale Motor: Obeys Commands Ish Coma Scale Total: 15 Speech: Normal Motor strength normal: LUE, RUE, LLE, RLE Sensory: Normal - Psychological Associated symptoms: Normal affect, Normal mood - Skin Skin Temperature: Warm Skin Moisture: Dry Skin Color: Normal Course - Re-evaluation Re-evalutation: 01/22/18 20:20 Patient was treated with Lidoderm patches which she stated were burning so they were removed. Patient was treated with warm packs. Patient was instructed to please follow-up with her primary doctor or pain management for her chronic pain. X-rays were negative and written report of the x-rays were given to patient. - Vital Signs Vital signs: Temp Pulse Resp BP Pulse Ox 97.8 F 85 16 150/78 H 97 01/22/18 19:09 01/22/18 19:09 01/22/18 19:09 01/22/18 19:09 01/22/18 19:09 - Diagnostic Test Radiology reviewed: Image reviewed, Reports reviewed Discharge - Discharge Clinical Impression: Chronic neck and back pain Condition: Stable Disposition: HOME, SELF-CARE Additional Instructions: Chronic Pain Control Stress, inactivity, and depression make pain more severe regardless of the cause of the pain. Stress and poor physical condition can cause pain such as headaches and backache. Relaxation: Rest in a quiet place with your eyes closed for 20 minutes twice daily. Concentrate on a pleasant image, or simply "feel" your breathing. Clear your mind. Stress management: Deal with your "stressors." Either take action, or eliminate the stressor from your life. Don't let things hang over you. Accept those things you can't change. Nutrition: Eat small, balanced meals -- don't skip, don't overeat. Meals should be high-carbohydrate, low-sugar, low-fat. Exercise: Exercise helps painful conditions and eases stress. Get 30 minutes of moderate exercise, five days a week. Do an activity that does not flare your pain. Precautions: Pain which continues to disrupt daily activities, or which changes in nature, requires a medical evaluation. Pain Clinic referral is available. We do not manage chronic pain in the Emergency Department. We will try to appropriately help you through an acute flare of your chronic painful condition , but for on-going chronic pain that does not improve, you will need to see your private doctor or dip painter. We do not provide repeated medication management of chronic painful conditions. If you wish, we can provide the name of local pain management physicians. Chronic Back Pain Chronic back pain (pain persisting longer than three months) is a common problem. A medical evaluation can look for herniated disc, arthritis, osteoporosis, tumors, and infections. But at least half the time, there's no obvious treatable cause. Anxiety and depression tend to worsen back pain. Ibuprofen or other anti-inflammatory medicine can help. A heating pad, used for 15-20 minutes at a time, can ease pain. For this type of back pain, narcotic medicines should be avoided. Muscle relaxers are rarely helpful unless you're having spasms. Activity is important. Find an aerobic exercise program that your back can tolerate. Too much rest makes back pain worse. Specific back exercises are usually prescribed to strengthen the back and abdominal muscles. Often, a physical therapist can help. Avoid heavy lifting, working while bent over, or standing with both knees straight. Most back pain patients do better with a firm mattress. If new symptoms of a "herniated disc" (radiation of pain, numbness, or tingling down the back of the leg or weakness in the leg) occur, you should be re-examined. ICE PACKS: Apply ice packs frequently against the painful area. Many different schedules are recommended, such as "20 minutes on, 20 minutes off" or "one hour ice, two hours rest." If you need to work, you may need to go longer between ice treatments. You should plan to have the area ice packed AT LEAST one fourth of the time. The ice should be applied over the wrap, tape, or splint, or over a layer of cloth -- not directly against the skin. Some ice bags have a built-in cloth and can be put directly on the skin. WARM PACKS: After approximately two days, apply gentle heat (such as a heating pad or hot water bottle) for about 20 to 30 minutes about every two hours -- at least four times daily. Warmth and elevation will help you make a more rapid recovery , and will ease the pain considerably. Do not use HOT heat, and never apply heat for longer than 30 minutes. The continuous heat can invisibly damage skin and muscles -- even when no burn is seen on the surface. Damaged muscles can make you MORE sore. Stretching Exercises for the Back The physician has recommended that you begin stretching exercises for your back. These are often used even while the back is painful. However, you should notify the physician if the activities seem to increase your pain. PELVIC TILT: Lie flat on your back with knees bent. Tighten your stomach and buttock muscles so it flattens your lower back against the floor. Hold 10 seconds. Repeat 10 times, twice daily. KNEE RAISE: Lying on the back with knees bent, raise one knee to your chest, then the other. Hold both knees against the chest 10 seconds, then lower one knee at a time. Repeat 10 times, twice daily. PARTIAL TRUNK RAISE: Lie face down, arms at your sides. Keeping your waist on the floor, use your arms raise your chest up. Support yourself on your elbows for 30 seconds. Repeat twice daily, increasing the time to two minutes as you recover. We have applied Lidoderm patches to you but you stated that they felt hot to you. We have remove them. I have given you instructions for ice and heat packs. Please follow-up with your primary care doctor. X-rays to your low back and neck are both negative. I have given you a written report of these x-rays. Please follow-up with your primary doctor for any continued back pain. FOLLOW-UP CARE: If you have been referred to a physician for follow-up care, call the physician s office for an appointment as you were instructed or within the next two days. If you experience worsening or a significant change in your symptoms, notify the physician immediately or return to the Emergency Department at any time for re-evaluation. Forms: Smoking Cessation Education Referrals: LAURA PANTOJA MD [Primary Care Provider] - Follow up as needed
--- NOTE | 2018-01-22 18:37 | RADIOLOGY REPORT (SQ) ---
EXAM DESCRIPTION: L SPINE WHOLE COMPLETED DATE/TIME: 01/22/2018 6:26 pm REASON FOR STUDY: increased pain to neck and low back COMPARISON: None. NUMBER OF VIEWS: Five views including obliques. TECHNIQUE: AP, lateral, oblique, and sacral radiographic images acquired of the lumbar spine. LIMITATIONS: None. FINDINGS: MINERALIZATION: Normal. SEGMENTATION: Normal. No transitional anatomy. ALIGNMENT: Normal. VERTEBRAE: Maintained height. No fracture or worrisome bone lesion. DISCS: Preserved height. No significant osteophytes or end plate irregularity. POSTERIOR ELEMENTS: Pedicles and facets are intact. No pars defect or posterior arch defects. HARDWARE: None in the spine. PARASPINAL SOFT TISSUES: Normal. PELVIS: Intact as visualized. No fractures or worrisome bone lesions. SI joints intact. OTHER: No other significant finding. IMPRESSION: NORMAL 5 VIEW LUMBAR SPINE. TECHNICAL DOCUMENTATION: JOB ID: [id number] [employer]- All Rights Reserved Reading location - IP/workstation name: [email or web address]
--- NOTE | 2018-01-22 18:45 | RADIOLOGY REPORT (SQ) ---
EXAM DESCRIPTION: CERV SP 4 OR 5 VIEWS COMPLETED DATE/TIME: 01/22/2018 6:26 pm REASON FOR STUDY: increased pain to neck and low back COMPARISON: None. NUMBER OF VIEWS: Five views. TECHNIQUE: AP, lateral, obliques and odontoid radiographic images acquired of the cervical spine. LIMITATIONS: None. FINDINGS: MINERALIZATION: Normal. ALIGNMENT: Anatomic. VERTEBRAE: Vertebral bodies of normal height. DISCS: No significant osteophytes or sclerosis. Disc height maintained. FORAMINA: No osteophytes or foraminal narrowing. LATERAL AND POSTERIOR ELEMENTS: Facets, lateral masses and spinous processes without significant find ings. HARDWARE: None in the spine. SOFT TISSUES: No masses or calcifications. Lung apices clear. OTHER: No other significant finding. IMPRESSION: NO SIGNIFICANT RADIOGRAPHIC FINDING IN THE CERVICAL SPINE. TECHNICAL DOCUMENTATION: JOB ID: [id number] [employer]- All Rights Reserved Reading location - IP/workstation name: [email or web address]
[2018-01-22 19:10] VITALS: BP 150/78
== END 2018-01-22 19:11 | disposition home or self-care (01) ==
LOC: ER 17:12
DX: G89.29 Other chronic pain (principal); M54.2 Cervicalgia; M54.89 Other dorsalgia; M54.5 Low back pain; L40.50 Arthropathic psoriasis, unspecified; Z79.899 Other long term (current) drug therapy; M79.606 Pain in leg, unspecified; I10 Essential (primary) hypertension; F17.210 Nicotine dependence, cigarettes, uncomplicated; Z71.6 Tobacco abuse counseling; Z91.040 Latex allergy status; Z88.8 Allergy status to other drugs, medicaments and biological substances
CPT/HCPCS: 99283; 72050; 72110; J3490

== ENCOUNTER 2018-04-07 16:54 | Emergency (ER) | payer MEDICAID ==
[2018-04-07] MEDS ORDERED: LIDOCAINE 2% VISCOUS SOLN 20 ML UDCUP PO ONE (17:19)
[2018-04-07] MEDS ORDERED: MAG HYDROX/AL HYDROX/SIMETH SUSP 30 ML UDCUP PO ONE (17:19)
--- NOTE | 2018-04-07 18:15 | RADIOLOGY REPORT (SQ) ---
EXAM DESCRIPTION: CHEST 2 VIEWS COMPLETED DATE/TIME: 04/07/2018 6:03 pm REASON FOR STUDY: cp COMPARISON: 08/20/2017 EXAM PARAMETERS: NUMBER OF VIEWS: two views TECHNIQUE: Digital Frontal and Lateral radiographic views of the chest acquired. RADIATION DOSE: NA LIMITATIONS: none FINDINGS: LUNGS AND PLEURA: No opacities, masses or pneumothorax. No pleural effusion. MEDIASTINUM AND HILAR STRUCTURES: No masses or contour abnormalities. HEART AND VASCULAR STRUCTURES: Heart normal size. No evidence for failure. BONES: No acute findings. HARDWARE: None in the chest. OTHER: No other significant finding. IMPRESSION: NO ACUTE RADIOGRAPHIC FINDING IN THE CHEST. TECHNICAL DOCUMENTATION: JOB ID: [id number] [employer]- All Rights Reserved Reading location - IP/workstation name: [email or web address]
[2018-04-07 18:37] LABS: ABSOLUTE EOSINOPHILS # (AUTO) 0.4 10^3/uL (0.0-0.6); ABSOLUTE LYMPHOCYTES (AUTO) 1.8 10^3/uL (0.5-4.7); ABSOLUTE MONOCYTES (AUTO) 0.5 10^3/uL (0.1-1.4); ABSOLUTE NEUT (AUTO) 6.5 10^3/uL (1.7-8.2); BASOPHILS % (AUTO) 0.4 % (0-2); EOSINOPHILS % (AUTO) 4.2 % (0-6); HEMATOCRIT 40.3 % (36.0-47.0); HEMOGLOBIN 13.7 g/dL (12.0-15.5); LYMPHOCYTES % (AUTO) 19.4 % (13-45); MEAN CORPUSCULAR HEMOGLOBIN 32.1 pg (27.0-33.4); MEAN CORPUSCULAR HGB CONC 33.9 g/dL (32.0-36.0); MEAN CORPUSCULAR VOLUME 95 fl (80-97); MONOCYTES % (AUTO) 5.5 % (3-13); PLATELET COUNT 252 10^3/uL (150-450); RED BLOOD COUNT 4.25 10^6/uL (3.72-5.28); RED CELL DISTRIBUTION WIDTH 20.2 % (11.5-14.0); SEGMENTED NEUTROPHILS % (AUTO) 70.5 % (42-78); TOTAL CELLS COUNTED % (AUTO) 100 %; WHITE BLOOD COUNT 9.2 10^3/uL (4.0-10.5)
[2018-04-07] MEDS ORDERED: HYDROCODONE/ACETAMINOPHEN 5-325 MG TABLET PO ONE (18:46)
--- NOTE | 2018-04-07 18:50 | ER Document Report ---
ED General - General Chief Complaint: Sore Throat Stated Complaint: THROAT PAIN Time Seen by Provider: 04/07/18 17:09 Mode of Arrival: Ambulatory Information source: Patient Notes: Patient presents complaining of throat pain that radiated into her chest and epigastric area. Patient states she has pain with inspiration. Patient denies any cough or cold symptoms. Patient does report occasionally feeling lightheaded in which she feels off balance. Patient denies any nausea or vomiting. Patient states pain started around 130 this morning and woke her up. Patient denies any recent travel bedrest or immobilization. TRAVEL OUTSIDE OF THE [place] IN LAST 30 DAYS: No - HPI Onset/Duration: Persistent Quality of pain: Sharp Pain Level: 5 Associated symptoms: Chest pain, Hurts to breath, Sore throat. denies: Nonproductive cough, Productive cough, Diarrhea, Fever, Headache, Nausea, Vomiting, Rhinnorhea, Shortness of breath Exacerbated by: Deep breathing Relieved by: Denies Similar symptoms previously: No Recently seen / treated by doctor: No - Related Data Allergies/Adverse Reactions: latex [Latex] Allergy (Intermediate, Verified 12/14/17 02:16) redness/blisters oral steroids Allergy (Uncoded 01/14/18 20:15) Past Medical History - General Information source: Patient - Social History Smoking Status: Current Every Day Smoker Cigarette use (# per day): Yes Chew tobacco use (# tins/day): No Frequency of alcohol use: None Drug Abuse: None Occupation: none Lives with: Family Family History: Arthritis, CAD, DM, Hyperlipidemia, Hypertension, Thyroid Disfunction, Other - Sarcoidosis - Past Medical History Cardiac Medical History: Denies: Hx Heart Attack Pulmonary Medical History: Reports: Hx Asthma Neurological Medical History: Reports: Hx Migraine Renal/ Medical History: Reports: Hx Ovarian Cysts. Denies: Hx Peritoneal Dialysis GI Medical History: Denies: Hx Gastroesophageal Reflux Disease Musculoskeletal Medical History: Reports Hx Arthritis, Reports Hx Fibromyalgia, Reports Hx Musculoskeletal Trauma Psychiatric Medical History: Reports: Hx Anxiety, Hx Depression Traumatic Medical History: Reports: Hx Fractures Past Surgical History: Reports: Hx Appendectomy, Hx Section, Hx Cholecystectomy, Hx Orthopedic Surgery - right foot x2, Hx Tonsillectomy - Immunizations Immunizations up to date: Yes Hx Diphtheria, Pertussis, Tetanus Vaccination: Yes Review of Systems - Review of Systems Constitutional: No symptoms reported. denies: Fever, Recent illness EENT: No symptoms reported Cardiovascular: Chest pain, Dizziness Gastrointestinal: No symptoms reported. denies: Abdominal pain, Diarrhea, Nausea, Vomiting Genitourinary: No symptoms reported Female Genitourinary: No symptoms reported Musculoskeletal: No symptoms reported. denies: Back pain, Leg swelling Skin: No symptoms reported Hematologic/Lymphatic: No symptoms reported Neurological/Psychological: No symptoms reported Physical Exam - Vital signs Vitals: Temp Pulse Resp BP Pulse Ox 98.4 F 91 16 133/84 H 98 04/07/18 17:02 04/07/18 17:02 04/07/18 17:02 04/07/18 17:02 04/07/18 17:02 - General General appearance: Appears well, Alert, Anxious In distress: None - HEENT Head: Normocephalic, Atraumatic Eyes: Normal Conjunctiva: Normal Nasal: Normal Mouth/Lips: Normal Mucous membranes: Normal Pharynx: Normal Neck: Normal, Supple. No: Lymphadenopathy - Respiratory Respiratory status: No respiratory distress Chest status: Pain with deep breathing Breath sounds: Normal. No: Rales, Rhonchi, Stridor, Wheezing Chest palpation: Normal - Cardiovascular Rhythm: Regular. No: Tachycardia Heart sounds: S1 appreciated, S2 appreciated Murmur: No - Abdominal Inspection: Morbidly Obese Distension: No distension Bowel sounds: Normal Tenderness: Nontender Organomegaly: No organomegaly - Back Back: Normal, Nontender. No: CVA tenderness - Extremities General upper extremity: Normal inspection, Normal strength General lower extremity: Normal inspection, Normal strength. No: Edema - Neurological Neuro grossly intact: Yes Cognition: Normal Ish Coma Scale Eye Opening: Spontaneous Ish Coma Scale Verbal: Oriented Ish Coma Scale Motor: Obeys Commands [place] Coma Scale Total: 15 - Psychological Associated symptoms: Anxious - Skin Skin Temperature: Warm Skin Moisture: Dry Skin Color: Normal Course - Re-evaluation Re-evalutation: 04/07/18 18:47 Patient denies any relief of chest pain symptoms with GI cocktail. Additional medication ordered. 04/07/18 19:39 The patient has atypical chest pain as the patient's chest pain is not suggestive of pulmonary embolus, cardiac ischemia, aortic dissection, or other serious etiology. Given the extremely low risk of these diagnoses for the test in evaluation for these possibilities does not appear to be indicated at this time. Patient has been instructed to return if the symptoms worsen or change in any way. She has low probability according to Wells criteria and is PERC negative. Patient does have mild elevation of your liver function test although has a previous history of cholecystectomy and her LFT results are where they have consistently been over the past several months. - Vital Signs Vital signs: Temp Pulse Resp BP Pulse Ox 98.5 F 94 17 131/75 H 95 04/07/18 19:54 04/07/18 19:54 04/07/18 19:54 04/07/18 19:54 04/07/18 19:54 - Laboratory Result Diagrams: 04/07/18 18:24 04/07/18 18:24 Laboratory results interpreted by me: 04/07/18 04/07/18 18:24 18:24 RDW 20.2 H Carbon Dioxide 31 H AST 39 H ALT 53 H Creatine Kinase 211 H 04/07/18 19:38 Labs- Entire Visit 04/07/18 04/07/18 04/07/18 17:32 18:24 18:24 WBC 9.2 RBC 4.25 Hgb 13.7 Hct 40.3 MCV 95 MCH 32.1 MCHC 33.9 RDW 20.2 H Plt Count 252 Seg Neutrophils % 70.5 Lymphocytes % 19.4 Monocytes % 5.5 Eosinophils % 4.2 Basophils % 0.4 Absolute Neutrophils 6.5 Absolute Lymphocytes 1.8 Absolute Monocytes 0.5 Absolute Eosinophils 0.4 Absolute Basophils 0.0 Sodium 140.4 Potassium 4.3 Chloride 102 Carbon Dioxide 31 H Anion Gap 7 BUN 13 Creatinine 0.64 Est GFR ( Amer) > 60 Est GFR (Non-Af Amer) > 60 Glucose 99 Calcium 9.5 Total Bilirubin 0.3 Direct Bilirubin 0.3 Neonat Total Bilirubin Not Reportable Neonat Direct Bilirubin Not Reportable Neonat Indirect Bili Not Reportable AST 39 H ALT 53 H Alkaline Phosphatase 107 Creatine Kinase 211 H CK-MB (CK-2) Troponin I Total Protein 6.8 Albumin 4.0 Lipase 47.2 Group A Strep Rapid NEGATIVE 04/07/18 18:24 WBC RBC Hgb Hct MCV MCH MCHC RDW Plt Count Seg Neutrophils % Lymphocytes % Monocytes % Eosinophils % Basophils % Absolute Neutrophils Absolute Lymphocytes Absolute Monocytes Absolute Eosinophils Absolute Basophils Sodium Potassium Chloride Carbon Dioxide Anion Gap BUN Creatinine Est GFR ( Amer) Est GFR (Non-Af Amer) Glucose Calcium Total Bilirubin Direct Bilirubin Neonat Total Bilirubin Neonat Direct Bilirubin Neonat Indirect Bili AST ALT Alkaline Phosphatase Creatine Kinase CK-MB (CK-2) 1.26 Troponin I < 0.012 Total Protein Albumin Lipase Group A Strep Rapid - Diagnostic Test Radiology reviewed: Reports reviewed Discharge - Discharge Clinical Impression: Sore throat Chest pain Qualifiers: Chest pain type: unspecified Qualified Code(s): R07.9 - Chest pain, unspecified Condition: Stable Disposition: HOME, SELF-CARE Instructions: Chest Pain of Unclear Cause ([facility]), Sore Throat ([facility]) Additional Instructions: Return immediately for any new or worsening symptoms Followup with your primary care provider, call tomorrow to make a followup appointment Follow-up with your wharf tender helper for recheck Prescriptions: Famotidine [Pepcid 20 mg Tablet] 20 mg PO BID #20 tablet Meclizine HCl [Antivert 25 mg Tablet] 25 mg PO ASDIR PRN #12 tablet PRN Reason: Sucralfate [Carafate 1 gm Tablet] 1 gm PO ACHS #40 tablet Forms: Smoking Cessation Education Referrals: LAURA PANTOJA MD [Primary Care Provider] - 04/08/18 DOLORES CARRILLO MD [ACTIVE STAFF] - Follow up as needed
[2018-04-07 18:57] LABS: ALANINE AMINOTRANSFERASE 53 U/L (9-52); ALKALINE PHOSPHATASE 107 U/L (38-126); ANION GAP 7 (5-19); ASPARTATE AMINO TRANSFERASE 39 U/L (14-36); BILIRUBIN,DIRECT 0.3 mg/dL (0.0-0.4); BILIRUBIN,TOTAL 0.3 mg/dL (0.2-1.3); BLOOD UREA NITROGEN 13 mg/dL (7-20); CALCIUM 9.5 mg/dL (8.4-10.2); CARBON DIOXIDE 31 mmol/L (22-30); CHLORIDE 102 mmol/L (98-107); CREATINE KINASE 211 U/L (30-135); GLUCOSE 99 mg/dL (75-110); LIPASE 47.2 U/L (23-300); POTASSIUM 4.3 mmol/L (3.6-5.0); SODIUM 140.4 mmol/L (137-145); TOTAL PROTEIN 6.8 g/dL (6.3-8.2)
[2018-04-07 19:07] LABS: CREATINE KINASE MB 1.26 ng/mL (<4.55)
[2018-04-07 19:09] LABS: TROPONIN I < 0.012 ng/mL
[2018-04-07 19:55] VITALS: BP 131/75
--- NOTE | 2018-04-07 23:45 | EKG REPORT ---
SEVERITY:- DEFECTIVE ECG - RIGHT AND LEFT ARM LEADS REVERSED, PLEASE REPEAT ECG : Confirmed by: Hanny Rich 07-Apr-2018 23:44:47
== END 2018-04-07 20:17 | disposition home or self-care (01) ==
LOC: ER 16:54
DX: J02.9 Acute pharyngitis, unspecified (principal); R07.9 Chest pain, unspecified; R10.13 Epigastric pain; F17.210 Nicotine dependence, cigarettes, uncomplicated; Z91.040 Latex allergy status; Z90.49 Acquired absence of other specified parts of digestive tract
CPT/HCPCS: 93005; 99284; 36415; 87070; 82553; 87880; 82550; 83690; 85025; 80053; 84484; 71046; 93010; J3490 ×2

== ENCOUNTER 2018-05-10 20:28 | Emergency (ER) | payer MEDICAID ==
[2018-05-10 21:27] VITALS: BP 118/63
--- NOTE | 2018-05-10 22:36 | ER Document Report ---
ED Medical Screen (RME) - General Chief Complaint: Vaginal Pain Stated Complaint: POSSIBLE ABSCESS ON VAGINA Time Seen by Provider: 05/10/18 22:34 Primary Care Provider: LAURA PANTOJA MD [Primary Care Provider] - Follow up as needed Mode of Arrival: Wheelchair Information source: Patient Notes: 28-year-old female presents to ED for complaint of abscess to the vaginal area. She states she went to the [facility] on 05/07/2018 and they examined her and started her on Keflex. She states the abscess is getting worse. She states this morning she was not able to walk for a while she increased her doses of tramadol and ibuprofen and got feeling a little better and then this evening she cannot walk again due to the pain. She does have a history of psoriatic arthritis and is on tramadol and ibuprofen Humira and methotrexate. Patient is alert oriented respirations regular and unlabored I did not examine the abscess in the triage area. I have greeted and performed a rapid initial assessment of this patient. A comprehensive ED assessment and evaluation of the patient, analysis of test results and completion of medical decision making process will be conducted by an additional ED providers. TRAVEL OUTSIDE OF THE [place] IN LAST 30 DAYS: No - Related Data Allergies/Adverse Reactions: latex [Latex] Allergy (Intermediate, Verified 12/14/17 02:16) redness/blisters oral steroids Allergy (Uncoded 01/14/18 20:15) Past Medical History - Past Medical History Cardiac Medical History: Denies: Hx Heart Attack Pulmonary Medical History: Reports: Hx Asthma Neurological Medical History: Reports: Hx Migraine Renal/ Medical History: Reports: Hx Ovarian Cysts. Denies: Hx Peritoneal Dialysis GI Medical History: Denies: Hx Gastroesophageal Reflux Disease Musculoskeltal Medical History: Reports Hx Arthritis, Reports Hx Fibromyalgia, Reports Hx Musculoskeletal Trauma Psychiatric Medical History: Reports: Hx Anxiety, Hx Depression Traumatic Medical History: Reports: Hx Fractures Past Surgical History: Reports: Hx Appendectomy, Hx Section, Hx Cholecystectomy, Hx Orthopedic Surgery - right foot x2, Hx Tonsillectomy - Immunizations Immunizations up to date: Yes Hx Diphtheria, Pertussis, Tetanus Vaccination: Yes Physical Exam - Vital signs Vitals: Temp Pulse Resp BP Pulse Ox 98.2 F 89 14 118/63 96 05/10/18 21:19 05/10/18 21:19 05/10/18 21:19 05/10/18 21:19 05/10/18 21:19 Course - Vital Signs Vital signs: Temp Pulse Resp BP Pulse Ox 98.2 F 89 14 118/63 96 05/10/18 21:19 05/10/18 21:19 05/10/18 21:19 05/10/18 21:19 05/10/18 21:19 Doctor's Discharge - Discharge Referrals: LAURA PANTOJA MD [Primary Care Provider] - Follow up as needed
[2018-05-11] MEDS ORDERED: HYDROCODONE/ACETAMINOPHEN 5-325 MG (6 TAB/ER DISP) PO PRN (00:46)
[2018-05-11] MEDS ORDERED: CLINDAMYCIN HCL 150 MG CAPSULE PO ONE (00:47)
--- NOTE | 2018-05-11 00:50 | ER Document Report ---
ED General - General Chief Complaint: Vaginal Pain Stated Complaint: POSSIBLE ABSCESS ON VAGINA Time Seen by Provider: 05/10/18 22:34 Mode of Arrival: Wheelchair Notes: Patient is a pleasant 28-year-old female presents with complaint of pain and swelling in vaginal area. She was told by her doctor she probably has a vulvar abscess. She said the pain worse and therefore she was told to come to the ER. She is followed by a asbestos cloth inspector at [facility]. She was placed on Keflex. No fevers. No vomiting. No abnormal discharge. No other complaints at this time. TRAVEL OUTSIDE OF THE [place] IN LAST 30 DAYS: No - Related Data Allergies/Adverse Reactions: latex [Latex] Allergy (Intermediate, Verified 12/14/17 02:16) redness/blisters oral steroids Allergy (Uncoded 01/14/18 20:15) Past Medical History - General Information source: Patient - Social History Smoking Status: Unknown if Ever Smoked Frequency of alcohol use: None Drug Abuse: None Family History: Arthritis, CAD, DM, Hyperlipidemia, Hypertension, Thyroid Disfunction, Other - Sarcoidosis - Past Medical History Cardiac Medical History: Denies: Hx Heart Attack Pulmonary Medical History: Reports: Hx Asthma Neurological Medical History: Reports: Hx Migraine Renal/ Medical History: Reports: Hx Ovarian Cysts. Denies: Hx Peritoneal Dialysis GI Medical History: Denies: Hx Gastroesophageal Reflux Disease Musculoskeletal Medical History: Reports Hx Arthritis, Reports Hx Fibromyalgia, Reports Hx Musculoskeletal Trauma Psychiatric Medical History: Reports: Hx Anxiety, Hx Depression Traumatic Medical History: Reports: Hx Fractures Past Surgical History: Reports: Hx Appendectomy, Hx Section, Hx Cholecystectomy, Hx Orthopedic Surgery - right foot x2, Hx Tonsillectomy - Immunizations Immunizations up to date: Yes Hx Diphtheria, Pertussis, Tetanus Vaccination: Yes Review of Systems - Review of Systems Notes: My Normal Review Basic REVIEW OF SYSTEMS: CONSTITUTIONAL : Denies fever, chills, or sweats. Denies recent illness. GENITOURINARY: Area of swelling in the vaginal labia. SKIN: Denies rash or skin lesions. NEUROLOGICAL: Denies altered mental status or loss of consciousness. ALL OTHER SYSTEMS REVIEWED AND NEGATIVE. Physical Exam - Vital signs Vitals: Temp Pulse Resp BP Pulse Ox 98.2 F 89 14 118/63 96 05/10/18 21:19 05/10/18 21:19 05/10/18 21:19 05/10/18 21:19 05/10/18 21:19 - Notes Notes: General Appearance: Well nourished, alert, cooperative, no acute distress, no obvious discomfort. Vitals: reviewed, See vital signs table. Head: no swelling or tenderness to the head Eyes: PERRL, EOMI, Conjuctiva clear Female genitalia. Bedside external genitalia exam was performed with R[place] a[place], at bedside. Patient does not have any obvious swelling to the vaginal area. There is just a very small area of induration at the base of the left labia. There is no significant redness or swelling beyond that. No fluctuation. Skin: warm, dry, appropriate color, no rash Neuro: speech clear, oriented x 3, normal affect, responds appropriately to questions. Course - Re-evaluation Re-evalutation: 05/11/18 07:36 Patient does not have a drainable vaginal abscess on my exam at this time. I encouraged her to follow-up with her asbestos cloth inspector this patient may eventually need marsupialization. I will change her over to clindamycin so it does cover for staph in case there is a underlying developing small abscess or infection associated with a vaginal cyst. Her to return to ER if she has increasing swelling, fevers, or feels unwell. - Vital Signs Vital signs: Temp Pulse Resp BP Pulse Ox 98.2 F 89 14 118/63 96 05/10/18 21:19 05/10/18 21:19 05/10/18 21:19 05/10/18 21:19 05/10/18 21:19 Discharge - Discharge Clinical Impression: Vaginal cyst Condition: Good Disposition: HOME, SELF-CARE Additional Instructions: I suspect the firm area on your vaginal labia is a bartholin cyst. This needs to be reevaluated by your asbestos cloth inspector as there is a procedure they can do to relieve this. i do not see any signs of spreading infection. These can at times get infected however so I will switch you to an antibiotic called Clindamycin that covers several different bacteria. I will give you a small bottle of [place] to go home with. Do not take the Tramadol when taking this. Use it very sparingly as it can lead to dependence if used for a prolonged period of time. Call your Health Systems Analyst Sunday to see them for reevaluation. Please be aware that [place] does have Tylenol (acetaminophen) in it. Please make sure you do not take more than 4000 mg of acetaminophen a day. Do not drive or care for children after you have taken this medication they will make you sleepy and sometimes impair judgment.
== END 2018-05-11 01:15 | disposition home or self-care (01) ==
LOC: ER 20:28
DX: N89.8 Other specified noninflammatory disorders of vagina (principal); R10.2 Pelvic and perineal pain; Z91.040 Latex allergy status; Z90.49 Acquired absence of other specified parts of digestive tract
CPT/HCPCS: 99282; J3490

== ENCOUNTER 2018-05-12 21:45 | Emergency (ER) | payer MEDICAID ==
[2018-05-12] MEDS ORDERED: SULFAMETHOXAZOLE/TRIMETHOPRIM 800-160 MG TABLET PO ONE (22:38)
[2018-05-12] MEDS ORDERED: IBUPROFEN 600 MG TABLET PO ONE (22:39)
[2018-05-12] MEDS ORDERED: MORPHINE SULFATE IR 15 MG TABLET PO ONE (22:39)
[2018-05-12] MEDS ORDERED: ACETAMINOPHEN 325 MG TABLET PO ONE (22:39)
--- NOTE | 2018-05-12 23:27 | ER Document Report ---
ED General - General Chief Complaint: Abscess Stated Complaint: ABSCESS Time Seen by Provider: 05/12/18 22:37 Primary Care Provider: LAURA PANTOJA MD [Primary Care Provider] - Follow up as needed Notes: Patient is a 28-year-old female with a past medical history of arthritis, obesity, presents complaining of left labial pain and pain to the left vaginal wall. Was seen in the emergency room several days ago for the same. Has been on cephalexin during that time without improvement. Describes it as a throbbing, aching, constant pain to her vaginal area on the left side. States that there is an area of induration that is most focally tender has now shooting pain down her left leg. Denies that anything seems to improve the pain she has tried tramadol and. Moving or touching the area worsens the pain. She has seen her MANAGER LABOR DELIVERY who said that this was likely developing abscess, had started her on the cephalexin. No history of the same in the past. TRAVEL OUTSIDE OF THE [place] IN LAST 30 DAYS: No - Related Data Allergies/Adverse Reactions: latex [Latex] Allergy (Intermediate, Verified 12/14/17 02:16) redness/blisters oral steroids Allergy (Uncoded 01/14/18 20:15) Past Medical History - General Information source: Patient - Social History Smoking Status: Current Every Day Smoker Frequency of alcohol use: None Drug Abuse: None Lives with: Family Family History: Arthritis, CAD, DM, Hyperlipidemia, Hypertension, Thyroid Dis function, Other - Sarcoidosis Patient has suicidal ideation: No Patient has homicidal ideation: No - Past Medical History Cardiac Medical History: Denies: Hx Heart Attack Pulmonary Medical History: Reports: Hx Asthma Neurological Medical History: Reports: Hx Migraine Renal/ Medical History: Reports: Hx Ovarian Cysts. Denies: Hx Peritoneal Dialysis GI Medical History: Denies: Hx Gastroesophageal Reflux Disease Musculoskeletal Medical History: Reports Hx Arthritis, Reports Hx Fibromyalgia, Reports Hx Musculoskeletal Trauma Psychiatric Medical History: Reports: Hx Anxiety, Hx Depression Traumatic Medical History: Reports: Hx Fractures Past Surgical History: Reports: Hx Appendectomy, Hx Section, Hx Cholecystectomy, Hx Orthopedic Surgery - right foot x2, Hx Tonsillectomy - Immunizations Immunizations up to date: Yes Hx Diphtheria, Pertussis, Tetanus Vaccination: Yes Review of Systems - Review of Systems Notes: Constitutional: Negative for fever. HENT: Negative for sore throat. Eyes: Negative for visual changes. Cardiovascular: Negative for chest pain. Respiratory: Negative for shortness of breath. Gastrointestinal: Negative for abdominal pain, vomiting or diarrhea. Genitourinary: Positive for vaginal pain Musculoskeletal: Negative for back pain. Skin: Negative for rash. Neurological: Negative for headaches, weakness or numbness. 10 point ROS negative except as marked above and in HPI. Physical Exam - Vital signs Vitals: Temp Pulse Resp BP Pulse Ox 98.2 F 89 17 139/67 H 99 05/12/18 22:02 05/12/18 22:02 05/12/18 22:02 05/12/18 22:02 05/12/18 22:02 Interpretation: Normal Notes: PHYSICAL EXAMINATION: GENERAL: Appears moderately uncomfortable but in no acute distress HEAD: Atraumatic, normocephalic. EYES: Pupils equal round and reactive to light, extraocular movements intact, sclera anicteric, conjunctiva are normal. ENT: nares patent, oropharynx clear without exudates. Moist mucous membranes. NECK: Normal range of motion, supple without lymphadenopathy LUNGS: Breath sounds clear to auscultation bilaterally and equal. No wheezes rales or rhonchi. HEART: Regular rate and rhythm without murmurs ABDOMEN: Soft, morbidly obese abdomen, nontender, normoactive bowel sounds. No guarding, no rebound. No masses appreciated. : There is a small area of induration at the base of the left labia majora and diffuse inflammatory changes along the vaginal introitus and on the left vaginal wall. EXTREMITIES: Normal range of motion, no pitting or edema. No cyanosis. NEUROLOGICAL: No focal neurological deficits. Moves all extremities spontaneously and on command. PSYCH: Normal mood, normal affect. SKIN: Warm, Dry, normal turgor, no rashes or lesions noted. Course - Re-evaluation Re-evalutation: 05/12/18 23:26 Patient presents with complaints of a possible abscess or cyst on her left internal vaginal wall extending from her labia majora. Patient was seen in the hospital several days ago for the same thing, has been on cephalexin for approximately 5-6 days after seeing her OB. States this is not improved her symptoms. On examination there is a minimal, slightly indurated area to the base of the left labia majora. There is diffuse erythema on the internal vaginal canal on the left vaginal wall. The area of induration without fluctuance was anesthetized using lidocaine and an expiratory incision and drainage was undertaken. No purulent drainage was able to be expressed. Will proceed with transvaginal ultrasound to evaluate for a possible fluid collection is not yet able to be drained or is deeper than I am yet able to appreciate. 05/13/18 00:41 Transvaginal ultrasound does not demonstrate any fluid collection to the affected area. Patient's pain and symptoms are improved. Labs otherwise u nremarkable. Patient has been started on Bactrim and will follow-up with MANAGER LABOR DELIVERY within the next 24-48 hours. At this time will discharge with return precautions and follow-up recommendations. Verbal discharge instructions given a the bedside and opportunity for questions given. Medication warnings reviewed. Patient is in agreement with this plan and has verbalized understanding of return precautions and the need for OB follow-up within the next 24-48 hours. - Vital Signs Vital signs: Temp Pulse Resp BP Pulse Ox 98.2 F 89 17 139/67 H 99 05/12/18 22:02 05/12/18 22:02 05/12/18 22:02 05/12/18 22:02 05/12/18 22:02 - Laboratory Result Diagrams: 05/12/18 23:22 05/12/18 23:22 Laboratory results interpreted by me: 05/12/18 23:22 MCV 99 H MCH 33.6 H RDW 17.0 H - Diagnostic Test Radiology reviewed: Reports reviewed Procedures - Incision and Drainage Left Labia Type: Simple Anesthetic type: 1% Lidocaine mL's of anesthetic: 2 Blade size: 11 I&D procedure: Betadine prep applied Incision Method: Incision made by scalpel Amount/type of drainage: 1cc blood drainage Discharge - Discharge Clinical Impression: Vaginal pain, Unspecified inflammatory disease of cervix, vagina, and vulva Condition: Good Disposition: HOME, SELF-CARE Additional Instructions: Please take the antibiotics as prescribed. The ultrasound does not demonstrate any fluid collection and the attempted drainage or did not reveal any drainable collection. Please follow-up with the MANAGER LABOR DELIVERY whom he saw last week within the next 24-48 hours. Return for any worsening of your pain, fever greater than 100.4 F, persistent vomiting, or any other symptoms that are worrisome to you. Prescriptions: Sulfamethoxazole/Trimethoprim [Bactrim Ds Tablet] 2 tab PO BID #28 tablet Referrals: LAURA PANTOJA MD [Primary Care Provider] - Follow up in 3-5 days
[2018-05-12 23:31] LABS: HEMATOCRIT 40.6 % (36.0-47.0); HEMOGLOBIN 13.9 g/dL (12.0-15.5); MEAN CORPUSCULAR HEMOGLOBIN 33.6 pg (27.0-33.4); MEAN CORPUSCULAR HGB CONC 34.1 g/dL (32.0-36.0); MEAN CORPUSCULAR VOLUME 99 fl (80-97); PLATELET COUNT 209 10^3/uL (150-450); RED BLOOD COUNT 4.13 10^6/uL (3.72-5.28); WHITE BLOOD COUNT 7.9 10^3/uL (4.0-10.5)
[2018-05-12 23:55] LABS: ANION GAP 7 (5-19); BLOOD UREA NITROGEN 14 mg/dL (7-20); CALCIUM 9.7 mg/dL (8.4-10.2); CARBON DIOXIDE 27 mmol/L (22-30); CHLORIDE 105 mmol/L (98-107); GLUCOSE 84 mg/dL (75-110); POTASSIUM 4.4 mmol/L (3.6-5.0); SODIUM 138.9 mmol/L (137-145)
--- NOTE | 2018-05-13 00:13 | RADIOLOGY REPORT (SQ) ---
EXAM DESCRIPTION: US PELVIS LIMITED COMPLETED DATE/TME: 05/12/2018 22:38 CLINICAL HISTORY: 28 years Female, Question left labial/vaginal wall abscess Comparison: None. Technique: Targeted sonogram in an area of symptomatology. LIMITATIONS: None. FINDINGS: Targeted sonogram of the left labia/vaginal wall in an area of indicated symptomatology shows no evidence of cyst, no fluid collection, no abscess. No vascular abnormality. No gross evidence of mass or mass effect. IMPRESSION: No acute findings.
[2018-05-13] MEDS ORDERED: HYDROCODONE/ACETAMINOPHEN 5-325 MG (6 TAB/ER DISP) PO PRN (00:41)
[2018-05-13 00:55] VITALS: BP 129/86
== END 2018-05-13 00:55 | disposition home or self-care (01) ==
LOC: ER 21:45
DX: N76.0 Acute vaginitis (principal); R10.2 Pelvic and perineal pain; E66.9 Obesity, unspecified; F17.200 Nicotine dependence, unspecified, uncomplicated; Z91.040 Latex allergy status
CPT/HCPCS: 99284; 36415; 84703; 85027; 80048; 76857; 56405; J3490 ×3

== ENCOUNTER 2018-05-25 17:12 | Emergency (ER) | payer MEDICAID ==
--- NOTE | 2018-05-25 17:39 | ER Document Report ---
ED Medical Screen (RME) - General Chief Complaint: Abscess Stated Complaint: ABCESS Time Seen by Provider: 05/25/18 17:36 Primary Care Provider: LAURA PANTOJA MD [Primary Care Provider] - Follow up as needed Mode of Arrival: Ambulatory Information source: Patient Notes: This is a 28-year-old female with a history of skin abscesses that presents to the emergency room with complaints of a skin abscess under her left breast. She states her tetanus is up-to-date. TRAVEL OUTSIDE OF THE [place] IN LAST 30 DAYS: No - Related Data Allergies/Adverse Reactions: latex [Latex] Allergy (Intermediate, Verified 05/25/18 17:13) redness/blisters oral steroids Allergy (Uncoded 05/25/18 17:13) Past Medical History - Past Medical History Cardiac Medical History: Denies: Hx Heart Attack Pulmonary Medical History: Reports: Hx Asthma Neurological Medical History: Reports: Hx Migraine Renal/ Medical History: Reports: Hx Ovarian Cysts. Denies: Hx Peritoneal Betty lysis GI Medical History: Denies: Hx Gastroesophageal Reflux Disease Musculoskeltal Medical History: Reports Hx Arthritis, Reports Hx Fibromyalgia, Reports Hx Musculoskeletal Trauma Psychiatric Medical History: Reports: Hx Anxiety, Hx Depression Traumatic Medical History: Reports: Hx Fractures Past Surgical History: Reports: Hx Appendectomy, Hx Section, Hx Cholecystectomy, Hx Orthopedic Surgery - right foot x2, Hx Tonsillectomy - Immunizations Immunizations up to date: Yes Hx Diphtheria, Pertussis, Tetanus Vaccination: Yes Physical Exam - Vital signs Vitals: Temp Pulse Resp BP Pulse Ox 97.6 F 87 14 121/76 100 05/25/18 17:18 05/25/18 17:18 05/25/18 17:18 05/25/18 17:18 05/25/18 17:18 Course - Vital Signs Vital signs: Temp Pulse Resp BP Pulse Ox 97.6 F 87 14 121/76 100 05/25/18 17:18 05/25/18 17:18 05/25/18 17:18 05/25/18 17:18 05/25/18 17:18 Doctor's Discharge - Discharge Referrals: LAURA PANTOJA MD [Primary Care Provider] - Follow up as needed
--- NOTE | 2018-05-25 18:12 | ER Document Report ---
ED General - General Chief Complaint: Abscess Stated Complaint: ABCESS Time Seen by Provider: 05/25/18 17:36 Primary Care Provider: LAURA PANTOJA MD [Primary Care Provider] - Follow up as needed Mode of Arrival: Ambulatory Notes: Patient is a 28-year-old obese female who presents to the emergency department with a chief complaint of an abscess under her breast. She felt her abscess 3 days ago, and her pain has progressively gotten worse. She states it is a sore pain. She attempted to pop the abscess today with a Humira needle she has, but stated that the only thing that came out was blood. She denies any fever, nausea, vomiting, or chills. She states that the area is just painful. Past medical history includes arthritis. TRAVEL OUTSIDE OF THE [place] IN LAST 30 DAYS: No - Related Data Allergies/Adverse Reactions: latex [Latex] Allergy (Intermediate, Verified 05/25/18 17:13) redness/blisters oral steroids Allergy (Uncoded 05/25/18 17:13) Past Medical History - General Information source: Patient - Social History Smoking Status: Current Every Day Smoker Chew tobacco use (# tins/day): No Frequency of alcohol use: None Drug Abuse: None Family History: Arthritis, CAD, DM, Hyperlipidemia, Hypertension, Thyroid Disfunction, Other - Sarcoidosis Patient has suicidal ideation: No Patient has homicidal ideation: No - Past Medical History Cardiac Medical History: Denies: Hx Heart Attack Pulmonary Medical History: Reports: Hx Asthma Neurological Medical History: Reports: Hx Migraine Renal/ Medical History: Reports: Hx Ovarian Cysts. Denies: Hx Peritoneal Dialysis GI Medical History: Denies: Hx Gastroesophageal Reflux Disease Musculoskeletal Medical History: Reports Hx Arthritis, Reports Hx Fibromyalgia, Reports Hx Musculoskeletal Trauma Psychiatric Medical History: Reports: Hx Anxiety, Hx Depression Traumatic Medical History: Reports: Hx Fractures Past Surgical History: Reports: Hx Appendectomy, Hx Section, Hx Cholecystectomy, Hx Orthopedic Surgery - right foot x2, Hx Tonsillectomy - Immunizations Immunizations up to date: Yes Hx Diphtheria, Pertussis, Tetanus Vaccination: Yes Review of Systems - Review of Systems Notes: REVIEW OF SYSTEMS: CONSTITUTIONAL : Denies recent illness. Denies recent unintentional weight loss. Denies fever, chills, or sweats. EENT: Denies eye, ear, throat, or mouth pain, discharge, or symptoms. Denies nasal or sinus congestion. CARDIOVASCULAR: Denies chest pain. RESPIRATORY: Denies shortness of breath, cough, congestion, difficulty breathing, or wheezing. GASTROINTESTINAL: Denies nausea, vomiting, and diarrhea. Denies abdominal pain. Denies constipation. GENITOURINARY: Denies difficulty urinating, burning, blood in urine, urgency or frequency. MUSCULOSKELETAL: Denies neck and back pain. Denies joint pain or swelling. SKIN: See HPI HEMATOLOGIC : Denies easy bruising or bleeding. LYMPHATIC: Denies swollen, painful, enlarged glands. NEUROLOGICAL: Denies no numbness or tingling denies weakness. Denies headache. Denies altered mental status. Denies alteration in speech. PSYCHIATRIC: Denies stress, anxiety, alteration in sleep patterns, or depression. All other systems reviewed and negative. Physical Exam - Vital signs Vitals: Temp Pulse Resp BP Pulse Ox 97.6 F 87 14 121/76 100 05/25/18 17:18 05/25/18 17:18 05/25/18 17:18 05/25/18 17:18 05/25/18 17:18 - Notes Notes: PHYSICAL EXAMINATION: GENERAL: Appears well, healthy, well-nourished, no acute distress. HEAD: Normocephalic, atraumatic. EYES: PERRL, conjunctiva normal, all extraocular movements intact, sclera nonicteric ENT: Moist mucous membranes. NECK: Supple, no noticeable swelling, redness, rash. Normal range of motion. LUNGS: Equal breath sounds bilaterally and clear to auscultation. No wheezes rales or rhonchi. CARDIOVASCULAR: S1-S2, regular rate, regular rhythm. Radial pulses 2+, normal. ABDOMEN: Normoactive bowel sounds. Soft, nontender, no guarding, no rebound tenderness, and no masses palpated. EXTREMITIES: Normal strength and range of motion, no pitting or edema. No cyanosis. NEUROLOGICAL: Moves all extremities upon command. Strength 5/5 in all ext remities. PSYCH: Normal mood, normal affect. SKIN: Warm, dry. Normal skin turgor. Striae noted all over abdomen and breast area. Small abscess noted to left side of chest right under breast. Course - Re-evaluation Re-evalutation: Differential diagnosis includes but normal limited to: abscess, dermoid cyst, sebaceous cyst, furnucle, or others. Based on patient's physical exam and history, this is an abscess. It was drained in the ER. There is no surrounding cellulitis. I do not believe the patient has underlying necrotizing fasciitis. She is at high risk for MRSA due to having multiple visits for abscesses. Based on patient's physical exam and these factors, they will be treated with antibiotics. Patient had an incision and drainage of an abscess under her left breast. She tolerated the procedure well. See procedure note. Verbal discharge instructions were given to the patient. They verbalized understanding. They are stable for discharge. - Vital Signs Vital signs: Temp Pulse Resp BP Pulse Ox 97.9 F 83 16 114/76 100 05/25/18 18:39 05/25/18 18:39 05/25/18 18:39 05/25/18 18:39 05/25/18 18:39 Discharge - Discharge Clinical Impression: Abscess Condition: Stable Disposition: HOME, SELF-CARE Additional Instructions: You were seen for an abscess that required drainage. Please clean this area with soap and water twice daily and apply a topical antibiotic, like Neosporin. Dress the area after each cleaning. You have been given antibiotics, please take all your antibiotics as prescribed. Please return if you develop fever, vomiting, the pain at the site worsens, you notice spreading redness from the area, or you have any other symptoms that are concerning to you. Prescriptions: Sulfamethoxazole/Trimethoprim [Bactrim Ds Tablet] 1 each PO BID 7 Days #14 tablet Referrals: LAURA PANTOJA MD [Primary Care Provider] - Follow up as needed
[2018-05-25 18:51] VITALS: BP 114/76
== END 2018-05-25 18:39 | disposition home or self-care (01) ==
LOC: ER 17:12
DX: N61.1 Abscess of the breast and nipple (principal); Z90.49 Acquired absence of other specified parts of digestive tract; F17.200 Nicotine dependence, unspecified, uncomplicated; Z90.710 Acquired absence of both cervix and uterus
CPT/HCPCS: 99283

== ENCOUNTER 2018-06-01 04:07 | Emergency (ER) | payer MEDICAID ==
[2018-06-01 04:17] VITALS: BP 134/79
[2018-06-01] MEDS ORDERED: METOCLOPRAMIDE HCL INJ/PF 10 MG/2 ML SDV IV ONE (04:32)
[2018-06-01] MEDS ORDERED: KETOROLAC TROMETHAMINE INJ/PF 30 MG/1 ML SDV IV ONE (04:32)
[2018-06-01] MEDS ORDERED: NORMAL SALINE 1000 ML 1,000 ML IV ONE (04:32)
[2018-06-01] MEDS ORDERED: DIPHENHYDRAMINE HCL 50 MG/ML VIAL IV ONE (04:32)
[2018-06-01] MEDS ORDERED: PROMETHAZINE HCL INJ 50 MG/1 ML VIAL IM ONE (04:32)
[2018-06-01] MEDS ORDERED: PROMETHAZINE HCL INJ 50 MG/1 ML VIAL IM PRN (04:33)
--- NOTE | 2018-06-01 06:28 | ER Document Report ---
Entered by SKY BHAKTA SCRIBE 06/01/18 0312 Acting as scribe for:KWAME TOM DO ED Headache - General Chief Complaint: Headache Stated Complaint: HEADACHE Time Seen by Provider: 06/01/18 04:21 Primary Care Provider: LAURA PANTOJA MD [Primary Care Provider] - Follow up as needed Mode of Arrival: Ambulatory Information source: Patient Notes: Patient is a 28 year old female with osteoarthritis and psoriatic arthritis, interstitial lung disease and a history of migraines presents to the emergency department complaining of a headache onset last night. Patient states she is prescribed depakote for her headaches but states the dose she took tonight did not help her symptoms. She states the pain is located across her right forehead and across the right occiput, there is no pain in between. Patient states this is the worst headache she has had since being placed on Depakote and states it is different from priors due to her also having pain posteriorly. She is not certain if she has ever had pain in the back of her neck prior to starting the Depakote. She also complains of pain to the top of her neck and, blurry vision and photophobia. Denies any fevers, denies any difference in her headache aside from the fact that the pain is also in her right occiput. States that when you palpate the area of pain in her right occiput that it sends a numbing type pain shooting towards her forehead. TRAVEL OUTSIDE OF THE [place] IN LAST 30 DAYS: No - Related Data Allergies/Adverse Reactions: latex [Latex] Allergy (Intermediate, Verified 05/25/18 17:13) redness/blisters oral steroids Allergy (Uncoded 05/25/18 17:13) Past Medical History - General Information source: Patient - Social History Smoking Status: Current Every Day Smoker Cigarette use (# per day): Yes Frequency of alcohol use: None Drug Abuse: None Family History: Arthritis, CAD, DM, Hyperlipidemia, Hypertension, Thyroid Disfunction, Other - Sarcoidosis - Past Medical History Cardiac Medical History: Pulmonary Medical History: Reports: Hx Asthma Neurological Medical History: Reports: Hx Migraine Renal/ Medical History: Reports: Hx Ovarian Cysts Musculoskeletal Medical History: Reports Hx Arthritis, Reports Hx Fibromyalgia, Reports Hx Musculoskeletal Trauma Psychiatric Medical History: Reports: Hx Anxiety, Hx Depression Traumatic Medical History: Reports: Hx Fractures Past Surgical History: Reports: Hx Appendectomy, Hx Section, Hx Cholecystectomy, Hx Orthopedic Surgery - right foot x2, Hx Tonsillectomy - Immunizations Immunizations up to date: Yes Hx Diphtheria, Pertussis, Tetanus Vaccination: Yes Review of Systems - Review of Systems Constitutional: No symptoms reported EENT: See HPI, Blurred vision Cardiovascular: No symptoms reported Respiratory: No symptoms reported Gastrointestinal: No symptoms reported Genitourinary: No symptoms reported Female Genitourinary: No symptoms reported Musculoskeletal: See HPI Skin: No symptoms reported Hematologic/Lymphatic: No symptoms reported Neurological/Psychological: See HPI, Headaches -: Yes All other systems reviewed and negative Physical Exam - Vital signs Vitals: Temp Pulse Resp BP Pulse Ox 98.0 F 94 16 134/79 H 94 06/01/18 04:16 06/01/18 04:16 06/01/18 04:16 06/01/18 04:16 06/01/18 04:16 - Notes Notes: GENERAL: Alert, interacts well. No acute distress. Obese HEAD: Normocephalic, atraumatic. Patient tender to palpation on the occipital nerve on the right side. Complains of decreased sensation to the center of the forehead. EYES: Pupils equal, round, and reactive to light. Extraocular movements intact. ENT: Oral mucosa moist, tongue midline. Good red reflex. Appears photophobic. NECK: Full range of motion. Supple. Trachea midline. No rash noted. LUNGS: Clear to auscultation bilaterally, no wheezes, rales, or rhonchi. No respiratory distress. HEART: Regular rate and rhythm. No murmurs, gallops, or rubs. ABDOMEN: Soft, obese, non-tender. Non-distended. Bowel sounds present in all 4 quadrants. EXTREMITIES: Moves all 4 extremities spontaneously. No edema, radial and dorsalis pedis pulses 2/4 bilaterally. No cyanosis. NEUROLOGICAL: Alert and oriented x3. Normal speech. Cranial nerves II through XII intact. Finger to nose testing intact, 5 out of 5 muscle strength present in all 4 extremities. Able to sit up in bed without any difficulty. PSYCH: Normal affect, normal mood. SKIN: Warm, dry, normal turgor. No rashes or lesions noted. Course - Re-evaluation Re-evalutation: 06/01/18 06:25 Pain is improved, patient sleeping deeply, able to awaken and tell me that the pain has improved. Patient is requested follow-up with neurologist as an outpatient, already has Phenergan at home, will be prescribed Zofran as well for nausea. Discharged home. - Vital Signs Vital signs: Temp Pulse Resp BP Pulse Ox 98.0 F 94 16 134/79 H 94 06/01/18 04:16 06/01/18 04:16 06/01/18 04:16 06/01/18 04:16 06/01/18 04:16 Discharge - Discharge Clinical Impression: Migraine headache Qualifiers: Migraine type: without aura Status migrainosus presence: with status migrainosus Intractability: intractable Qualified Code(s): G43.011 - Migraine without aura, intractable, with status migrainosus Condition: Stable Disposition: HOME, SELF-CARE Additional Instructions: Migraine Headache The physician feels that your symptoms are due to a migraine attack. Migraines are caused by changes in the blood vessels of the head. Arteries go into spasm, often causing warning symptoms that a headache may begin soon. As the spasm goes away, the vessels dilate and throb, causing the pounding pain of a migraine headache. Migraines often cause nausea and vomiting. The treatment of headaches varies with severity and cause of pain. Not all headaches need pain shots -- in fact, there is evidence that using narcotics for headaches may make them worse in the long run. The physician will determine the therapy that's in your best interest for this particular headache. Medications are available that may prevent migraines, or stop them as they first occur. If one medication is not helpful, try another. If migraines are frequent, be patient -- follow the doctor's recommendations. Call the physician if you are worsening, or if new symptoms arise. Prescriptions: Ondansetron [Zofran Odt 4 mg Tablet] 1 - 2 tab PO Q4H PRN #15 tab.rapdis PRN Reason: For Nausea/Vomiting Forms: Return to Work Referrals: LAURA PANTOJA MD [Primary Care Provider] - Follow up as needed Scribe Attestation: 06/01/18 06:27 I personally performed the services described in the documentation, reviewed and edited the documentation which was dictated to the scribe in my presence, and it accurately records my words and actions. I personally performed the services described in the documentation, reviewed and edited the documentation which was dictated to the scribe in my presence, and it accurately records my words and actions.
== END 2018-06-01 06:30 | disposition home or self-care (01) ==
LOC: ER 04:07
DX: G43.011 Migraine without aura, intractable, with status migrainosus (principal); Z79.899 Other long term (current) drug therapy; E66.9 Obesity, unspecified; R11.0 Nausea; F17.210 Nicotine dependence, cigarettes, uncomplicated; J45.909 Unspecified asthma, uncomplicated; Z91.040 Latex allergy status; Z88.8 Allergy status to other drugs, medicaments and biological substances
CPT/HCPCS: 99283; 96374; 96375; J1200; J1885; J2765; J7030

== ENCOUNTER 2018-06-06 02:36 | Emergency (ER) | payer MEDICAID ==
[2018-06-06 03:59] LABS: ABSOLUTE BASOPHILS # (AUTO) 0.1 10^3/uL (0.0-0.2); ABSOLUTE EOSINOPHILS # (AUTO) 0.5 10^3/uL (0.0-0.6); ABSOLUTE LYMPHOCYTES (AUTO) 2.9 10^3/uL (0.5-4.7); ABSOLUTE MONOCYTES (AUTO) 0.5 10^3/uL (0.1-1.4); ABSOLUTE NEUT (AUTO) 4.4 10^3/uL (1.7-8.2); BASOPHILS % (AUTO) 1.1 % (0-2); EOSINOPHILS % (AUTO) 6.2 % (0-6); HEMATOCRIT 39.1 % (36.0-47.0); HEMOGLOBIN 13.4 g/dL (12.0-15.5); LYMPHOCYTES % (AUTO) 34.7 % (13-45); MEAN CORPUSCULAR HEMOGLOBIN 34.3 pg (27.0-33.4); MEAN CORPUSCULAR HGB CONC 34.3 g/dL (32.0-36.0); MEAN CORPUSCULAR VOLUME 100 fl (80-97); MONOCYTES % (AUTO) 5.7 % (3-13); PLATELET COUNT 232 10^3/uL (150-450); RED BLOOD COUNT 3.92 10^6/uL (3.72-5.28); RED CELL DISTRIBUTION WIDTH 14.3 % (11.5-14.0); SEGMENTED NEUTROPHILS % (AUTO) 52.3 % (42-78); TOTAL CELLS COUNTED % (AUTO) 100 %; WHITE BLOOD COUNT 8.3 10^3/uL (4.0-10.5)
[2018-06-06 04:06] LABS: APPEARANCE,URINE SLIGHTLY-CLOUDY; BILIRUBIN,URINE NEGATIVE (NEGATIVE); COLOR,URINE YELLOW; GLUCOSE, URINE NEGATIVE (NEGATIVE); KETONES,URINE NEGATIVE (NEGATIVE); LEUKOCYTE ESTERASE,URINE NEGATIVE (NEGATIVE); NITRITE,URINE NEGATIVE (NEGATIVE); PROTEIN,URINE NEGATIVE (NEGATIVE); URINE SPECIFIC GRAVITY 1.019
[2018-06-06 04:17] LABS: ALANINE AMINOTRANSFERASE 229 U/L (9-52); ALBUMIN 4.2 g/dL (3.5-5.0); ALKALINE PHOSPHATASE 79 U/L (38-126); ANION GAP 10 (5-19); ASPARTATE AMINO TRANSFERASE 120 U/L (14-36); BILIRUBIN,DIRECT 0.3 mg/dL (0.0-0.4); BILIRUBIN,TOTAL 0.3 mg/dL (0.2-1.3); BLOOD UREA NITROGEN 14 mg/dL (7-20); CALCIUM 9.4 mg/dL (8.4-10.2); CARBON DIOXIDE 29 mmol/L (22-30); CHLORIDE 102 mmol/L (98-107); GLUCOSE 90 mg/dL (75-110); POTASSIUM 4.4 mmol/L (3.6-5.0); SODIUM 141.4 mmol/L (137-145); TOTAL PROTEIN 6.3 g/dL (6.3-8.2)
--- NOTE | 2018-06-06 05:03 | RADIOLOGY REPORT (SQ) ---
EXAM DESCRIPTION: XR ABDOMEN SUPINE AND ERECT WITH CHEST (ABD ACUTE SERIES) COMPLETED DATE/TME: 06/06/2018 03:39 CLINICAL HISTORY: 28 years, Female, abd pain COMPARISON: None. Comparison: None FINDINGS: No focal lung consolidation. No pleural effusion. No pneumothorax. Cardiac and mediastinal silhouette is unremarkable. Supine and upright views of the abdomen show scattered gas-filled loops of bowel. Cholecystectomy clips are present. No pathologic calcifications. IMPRESSION: No focal lung consolidation. Nonobstructive bowel gas pattern.
[2018-06-06] MEDS ORDERED: DICYCLOMINE HCL 20 MG TABLET PO ONE (05:18)
--- NOTE | 2018-06-06 05:18 | ER Document Report ---
ED General - General Chief Complaint: Abdominal Pain Stated Complaint: ABDOMINAL PAIN Time Seen by Provider: 06/06/18 03:18 Primary Care Provider: LAURA PANTOJA MD [Primary Care Provider] - Follow up in 3-5 days TRAVEL OUTSIDE OF THE [place] IN LAST 30 DAYS: No - HPI Patient complains to provider of: Right upper quadrant abdominal pain Notes: Patient coming in with a history of psoriatic arthritis on Humira history of a cholecystectomy states that she has a history of fatty liver complaining of right upper quadrant pain. Patient states started early this morning and now is hurting in her right arm. Patient states that today she was able to have a barbecue sandwich followed by a cheeseburger as that she is on a keto diet. Patient states pain has continued therefore came to the ER for further evaluation denies any nausea vomiting fever chills. Patient states she did have normal bowel movements. Patient denies any trauma to the area. Patient looks to be no obvious distress upon my evaluation. - Related Data Allergies/Adverse Reactions: latex [Latex] Allergy (Intermediate, Verified 06/01/18 07:08) redness/blisters oral steroids Allergy (Uncoded 06/01/18 07:08) Past Medical History - Social History Smoking Status: Never Smoker Family History: Arthritis, CAD, DM, Hyperlipidemia, Hypertension, Thyroid Disfunction, Other - Sarcoidosis Patient has suicidal ideation: No Patient has homicidal ideation: No - Past Medical History Cardiac Medical History: Denies: Hx Heart Attack Pulmonary Medical History: Reports: Hx Asthma Neurological Medical History: Reports: Hx Migraine Renal/ Medical History: Reports: Hx Ovarian Cysts. Denies: Hx Peritoneal Dialysis GI Medical History: Denies: Hx Gastroesophageal Reflux Disease Musculoskeletal Medical History: Reports Hx Arthritis, Reports Hx Fibromyalgia, Reports Hx Musculoskeletal Trauma Psychiatric Medical History: Reports: Hx Anxiety, Hx Depression Traumatic Medical History: Reports: Hx Fractures Past Surgical History: Reports: Hx Appendectomy, Hx Section, Hx Cholecystectomy, Hx Orthopedic Surgery - right foot x2, Hx Tonsillectomy - Immunizations Immunizations up to date: Yes Hx Diphtheria, Pertussis, Tetanus Vaccination: Yes Review of Systems - Review of Systems Constitutional: No symptoms reported EENT: No symptoms reported Cardiovascular: No symptoms reported Respiratory: No symptoms reported Gastrointestinal: Abdominal pain Genitourinary: No symptoms reported Female Genitourinary: No symptoms reported Musculoskeletal: No symptoms reported Skin: No symptoms reported Hematologic/Lymphatic: No symptoms reported Neurological/Psychological: No symptoms reported -: Yes All other systems reviewed and negative Physical Exam - Vital signs Vitals: Temp Pulse Resp BP Pulse Ox 97.6 F 96 18 122/79 96 06/06/18 02:53 06/06/18 02:53 06/06/18 02:53 06/06/18 02:53 06/06/18 02:53 Interpretation: Normal - General General appearance: Appears well, Alert - HEENT Head: Normocephalic, Atraumatic Eyes: Normal Pupils: PERRL - Respiratory Respiratory status: No respiratory distress Chest status: Nontender Breath sounds: Normal Chest palpation: Normal - Cardiovascular Rhythm: Regular Heart sounds: Normal auscultation Murmur: No - Abdominal Inspection: Normal, Morbidly Obese Distension: No distension Bowel sounds: Normal Tenderness: Nontender Organomegaly: No organomegaly - Back Back: Normal, Nontender - Extremities General upper extremity: Normal inspection, Nontender, Normal color, Normal ROM, Normal temperature General lower extremity: Normal inspection, Nontender, Normal color, Normal ROM, Normal temperature, Normal weight bearing. No: Haley's sign - Neurological Neuro grossly intact: Yes Cognition: Normal Orientation: AAOx4 [place] Coma Scale Eye Opening: Spontaneous Ish Coma Scale Verbal: Oriented [place] Coma Scale Motor: Obeys Commands [place] Coma Scale Total: 15 Speech: Normal Motor strength normal: LUE, RUE, LLE, RLE Sensory: Normal - Psychological Associated symptoms: Normal affect, Normal mood - Skin Skin Temperature: Warm Skin Moisture: Dry Skin Color: Normal Course - Re-evaluation Re-evalutation: 06/06/18 05:33 Acute abdominal series not revealing critical pathology personally reviewed looks to have stool retention in the right upper quadrant more likely expiration for the patient's pain is that she is on chronic opiates for chronic pain. Explained this to the patient recommend the patient have a discussion with her primary care physician about her dietary plan due to her chronic elevation in LFTs and history of fatty liver. Patient will be given Bentyl for her pain control recommended Senokot-S for stool seen on x-ray patient was discharged home - Vital Signs Vital signs: Temp Pulse Resp BP Pulse Ox 97.6 F 96 18 122/79 96 06/06/18 02:53 06/06/18 02:53 06/06/18 02:53 06/06/18 02:53 06/06/18 02:53 - Laboratory Result Diagrams: 06/06/18 03:47 06/06/18 03:47 Laboratory results interpreted by me: 06/06/18 06/06/18 06/06/18 03:24 03:47 03:47 MCV 100 H MCH 34.3 H RDW 14.3 H Eosinophils % 6.2 H AST 120 H ALT 229 H Urine Urobilinogen 2.0 H Discharge - Discharge Clinical Impression: Chronic prescription opiate use, Chronic elevation in LFTs Abdominal pain Qualifiers: Abdominal location: generalized Qualified Code(s): R10.84 - Generalized abdominal pain Condition: Good Disposition: HOME, SELF-CARE Instructions: Abdominal Pain ([facility]), Constipation ([facility]) Additional Instructions: Your workup tonight is not show any critical pathology for your abdominal pain. The x-ray of your stomach does show stool retention in the right upper quadrant of your abdomen we are stating he had the most pain. I recommend he continue with your narcotic pain medication that you start taking a stool softener or laxative such as was prescribed. Follow-up with your primary care physician for further discussion about your diet. Return to ER symptoms worsen. Prescriptions: Dicyclomine HCl [Bentyl 20 mg Tablet] 20 mg PO QID #20 tablet Sennosides/Docusate Sodium [Senna-S Tablet] 1 each PO DAILY #14 tablet Referrals: LAURA PANTOJA MD [Primary Care Provider] - Follow up in 3-5 days
--- NOTE | 2018-06-06 05:18 | ER Document Report ---
ED General - General Chief Complaint: Abdominal Pain Stated Complaint: ABDOMINAL PAIN Time Seen by Provider: 06/06/18 03:18 Primary Care Provider: LAURA PANTOJA MD [Primary Care Provider] - Follow up as needed TRAVEL OUTSIDE OF THE [place] IN LAST 30 DAYS: No - Related Data Allergies/Adverse Reactions: latex [Latex] Allergy (Intermediate, Verified 06/01/18 07:08) redness/blisters oral steroids Allergy (Uncoded 06/01/18 07:08) Past Medical History - Social History Smoking Status: Never Smoker Family History: Arthritis, CAD, DM, Hyperlipidemia, Hypertension, Thyroid Disfunction, Other - Sarcoidosis Patient has suicidal ideation: No Patient has homicidal ideation: No - Past Medical History Cardiac Medical History: Denies: Hx Heart Attack Pulmonary Medical History: Reports: Hx Asthma Neurological Medical History: Reports: Hx Migraine Renal/ Medical History: Reports: Hx Ovarian Cysts. Denies: Hx Peritoneal Dialysis GI Medical History: Denies: Hx Gastroesophageal Reflux Disease Musculoskeletal Medical History: Reports Hx Arthritis, Reports Hx Fibromyalgia, Reports Hx Musculoskeletal Trauma Psychiatric Medical History: Reports: Hx Anxiety, Hx Depression Traumatic Medical History: Reports: Hx Fractures Past Surgical History: Reports: Hx Appendectomy, Hx Section, Hx C holecystectomy, Hx Orthopedic Surgery - right foot x2, Hx Tonsillectomy - Immunizations Immunizations up to date: Yes Hx Diphtheria, Pertussis, Tetanus Vaccination: Yes Physical Exam - Vital signs Vitals: Temp Pulse Resp BP Pulse Ox 97.6 F 96 18 122/79 96 06/06/18 02:53 06/06/18 02:53 06/06/18 02:53 06/06/18 02:53 06/06/18 02:53 Course - Vital Signs Vital signs: Temp Pulse Resp BP Pulse Ox 97.6 F 96 18 122/79 96 06/06/18 02:53 06/06/18 02:53 06/06/18 02:53 06/06/18 02:53 06/06/18 02:53 - Laboratory Result Diagrams: 06/06/18 03:47 06/06/18 03:47 Laboratory results interpreted by me: 06/06/18 06/06/18 06/06/18 03:24 03:47 03:47 MCV 100 H MCH 34.3 H RDW 14.3 H Eosinophils % 6.2 H AST 120 H ALT 229 H Urine Urobilinogen 2.0 H Discharge - Discharge Clinical Impression: Abdominal pain Qualifiers: Abdominal location: generalized Qualified Code(s): R10.84 - Generalized abdominal pain Condition: Good Instructions: Abdominal Pain ([facility]), Constipation ([facility]) Additional Instructions: Your workup tonight is not show any critical pathology for your abdominal pain. The x-ray of your stomach does show stool retention in the right upper quadrant of your abdomen we are stating he had the most pain. I recommend he continue with your narcotic pain medication that you start taking a stool softener or laxative such as was prescribed. Follow-up with your primary care physician for further discussion about your diet. Return to ER symptoms worsen. Prescriptions: Dicyclomine HCl [Bentyl 20 mg Tablet] 20 mg PO QID #20 tablet Sennosides/Docusate Sodium [Senna-S Tablet] 1 each PO DAILY #14 tablet Referrals: LAURA PANTOJA MD [Primary Care Provider] - Follow up in 3-5 days
[2018-06-06 05:30] VITALS: BP 132/66
== END 2018-06-06 05:30 | disposition home or self-care (01) ==
LOC: ER 02:36
DX: F11.20 Opioid dependence, uncomplicated (principal); R79.89 Other specified abnormal findings of blood chemistry; R10.84 Generalized abdominal pain; R10.11 Right upper quadrant pain; Z90.49 Acquired absence of other specified parts of digestive tract; Z91.040 Latex allergy status
CPT/HCPCS: 99284; 36415; 85025; 81025; 80053; 81001; 74022; J3490

== ENCOUNTER 2019-03-11 19:48 | Emergency (ER) | payer MEDICAID ==
[2019-03-11] MEDS ORDERED: ONDANSETRON HCL INJ/PF 4 MG/2 ML SDV IV ONE (21:23)
[2019-03-11] MEDS ORDERED: MORPHINE SULFATE 10 MG/ML INJ IV ONE (21:24)
--- NOTE | 2019-03-11 21:27 | ER Document Report ---
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 Patient states intermittent dizziness and shortness of breath. No chest pain, no urinary symptoms. Exam: Nontoxic-appearing in no acute distress, lungs are clear to auscultation all neal, regular cardiac rate and rhythm, abdominal exam deferred in triage I have greeted and performed a rapid initial assessment of this patient. A comprehensive ED assessment and evaluation of the patient, analysis of test results and completion of medical decision making process will be conducted by an additional ED providers. TRAVEL OUTSIDE OF THE [place] IN LAST 30 DAYS: No - Related Data Allergies/Adverse Reactions: latex [Latex] Allergy (Intermediate, Verified 06/01/18 07:08) redness/blisters oral steroids Allergy (Uncoded 06/01/18 07:08) Home Medications: morphine, celecoxib, desvenlafaxine, saphris, esomeprazole, gabapentin, promethazine, levetiracetam, bupropion, buspirone, propanolol, b aclofen, gabapentin, doxepin, prazosin, methatrexate injections, humira injection Past Medical History - Social History Chew tobacco use (# tins/day): No Frequency of alcohol use: None Drug Abuse: None - Past Medical History Cardiac Medical History: Denies: Hx Heart Attack Pulmonary Medical History: Reports: Hx Asthma Neurological Medical History: Reports: Hx Migraine Renal/ Medical History: Reports: Hx Ovarian Cysts. Denies: Hx Peritoneal Dialysis GI Medical History: Denies: Hx Gastroesophageal Reflux Disease Musculoskeltal Medical History: Reports Hx Arthritis, Reports Hx Fibromyalgia, Reports Hx Musculoskeletal Trauma Psychiatric Medical History: Reports: Hx Anxiety, Hx Depression Traumatic Medical History: Reports: Hx Fractures Past Surgical History: Reports: Hx Appendectomy, Hx Section, Hx Cholecystectomy, Hx Orthopedic Surgery - right foot x2, Hx Tonsillectomy - Immunizations Immunizations up to date: Yes Hx Diphtheria, Pertussis, Tetanus Vaccination: Yes Physical Exam - Vital signs Vitals: Temp Pulse Resp BP Pulse Ox 98.1 F 92 18 144/86 H 98 12/03/19 20:05 03/11/19 20:05 03/11/19 20:05 03/11/19 20:05 03/11/19 20:05 Course - Vital Signs Vital signs: Temp Pulse Resp BP Pulse Ox 98.1 F 92 18 144/86 H 98 03/11/19 21:12 03/11/19 21:12 03/11/19 21:12 03/11/19 21:12 03/11/19 21:12 Doctor's Discharge - Discharge Referrals: LAURA PANTOJA MD [Primary Care Provider] - Follow up as needed
[2019-03-11 22:37] LABS: ABSOLUTE EOSINOPHILS # (AUTO) 0.6 10^3/uL (0.0-0.6); ABSOLUTE LYMPHOCYTES (AUTO) 2.3 10^3/uL (0.5-4.7); ABSOLUTE MONOCYTES (AUTO) 0.4 10^3/uL (0.1-1.4); ABSOLUTE NEUT (AUTO) 7.2 10^3/uL (1.7-8.2); BASOPHILS % (AUTO) 0.4 % (0-2); HEMATOCRIT 37.2 % (36.0-47.0); HEMOGLOBIN 12.5 g/dL (12.0-15.5); LYMPHOCYTES % (AUTO) 21.6 % (13-45); MEAN CORPUSCULAR HEMOGLOBIN 31.4 pg (27.0-33.4); MEAN CORPUSCULAR HGB CONC 33.6 g/dL (32.0-36.0); MEAN CORPUSCULAR VOLUME 94 fl (80-97); PLATELET COUNT 329 10^3/uL (150-450); RED BLOOD COUNT 3.98 10^6/uL (3.72-5.28); RED CELL DISTRIBUTION WIDTH 14.5 % (11.5-14.0); TOTAL CELLS COUNTED % (AUTO) 100 %; WHITE BLOOD COUNT 10.5 10^3/uL (4.0-10.5)
[2019-03-11 22:48] LABS: ALBUMIN 4.2 g/dL (3.5-5.0); ALKALINE PHOSPHATASE 97 U/L (38-126); ANION GAP 9 (5-19); ASPARTATE AMINO TRANSFERASE 41 U/L (14-36); BILIRUBIN,DIRECT 0.1 mg/dL (0.0-0.4); BILIRUBIN,TOTAL 0.3 mg/dL (0.2-1.3); BLOOD UREA NITROGEN 9 mg/dL (7-20); CALCIUM 9.6 mg/dL (8.4-10.2); CARBON DIOXIDE 30 mmol/L (22-30); CHLORIDE 101 mmol/L (98-107); GLUCOSE 91 mg/dL (75-110); POTASSIUM 4.4 mmol/L (3.6-5.0); TOTAL PROTEIN 7.9 g/dL (6.3-8.2)
--- NOTE | 2019-03-11 23:27 | RADIOLOGY REPORT (SQ) ---
EXAM DESCRIPTION: US PELVIS TRANSVAGINAL COMPLETED DATE/TME: 03/11/2019 21:24 CLINICAL HISTORY: 29 years Female, abd pain, heavy menses Comparison: None. Technique: Transvaginal. LIMITATIONS: Body habitus. FINDINGS: 8.8 x 3.2 x 4.0-cm uterus, 1.8-cm endometrial stripe thickness, nonvisualized ovaries appear otherwise unremarkable in size, shape, echotexture, and vascularity. No free fluid. IMPRESSION: 1. Thickening of the endometrial stripe measures 1.8 cm. Differential diagnosis includes endometrial hyperplasia, and endometrial polyp/neoplasm. Limited exam. [employer] referral advised. 2. Ovaries are not visualized.
[2019-03-12] MEDS ORDERED: HYDROCODONE/ACETAMINOPHEN 5-325 MG TABLET PO ONE (00:19)
--- NOTE | 2019-03-12 00:27 | ER Document Report ---
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 Patient states intermittent dizziness and shortness of breath. No chest pain, no urinary symptoms. TRAVEL OUTSIDE OF THE [place] IN LAST 30 DAYS: No - Related Data Allergies/Adverse Reactions: latex [Latex] Allergy (Intermediate, Verified 06/01/18 07:08) redness/blisters oral steroids Allergy (Uncoded 06/01/18 07:08) Home Medications: morphine, celecoxib, desvenlafaxine, saphris, esomeprazole, gabapentin, promethazine, levetiracetam, bupropion, buspirone, propanolol, baclofen, gabapentin, doxepin, prazosin, methatrexate injections, humira injection Past Medical History - General Information source: Patient - Social History Smoking Status: Current Every Day Smoker Chew tobacco use (# tins/day): No Frequency of alcohol use: None Drug Abuse: None Family History: Arthritis, CAD, DM, Hyperlipidemia, Hypertension, Thyroid Disfunction, Other - Sarcoidosis Patient has suicidal ideation: No Patient has homicidal ideation: No - Past Medical History Cardiac Medical History: Denies: Hx Heart Attack Pulmonary Medical History: Reports: Hx Asthma Neurological Medical History: Reports: Hx Migraine Renal/ Medical History: Reports: Hx Ovarian Cysts. Denies: Hx Peritoneal Dialysis GI Medical History: Denies: Hx Gastroesophageal Reflux Disease Musculoskeletal Medical History: Reports Hx Arthritis, Reports Hx Fibromyalgia, Reports Hx Musculoskeletal Trauma Psychiatric Medical History: Reports: Hx Anxiety, Hx Depression Traumatic Medical History: Reports: Hx Fractures Past Surgical History: Reports: Hx Appendectomy, Hx Section, Hx Cholecystectomy, Hx Orthopedic Surgery - right foot x2, Hx Tonsillectomy - Immunizations Immunizations up to date: Yes Hx Diphtheria, Pertussis, Tetanus Vaccination: Yes Review of Systems - Review of Systems Constitutional: No symptoms reported EENT: No symptoms reported Cardiovascular: No symptoms reported Respiratory: No symptoms reported Gastrointestinal: No symptoms reported Genitourinary: No symptoms reported Female Genitourinary: Heavy/abnormal periods, Vaginal bleeding Musculoskeletal: No symptoms reported Skin: No symptoms reported Hematologic/Lymphatic: No symptoms reported Neurological/Psychological: No symptoms reported Physical Exam - Vital signs Vitals: Temp Pulse Resp BP Pulse Ox 98.1 F 92 18 144/86 H 98 03/11/19 20:05 03/11/19 20:05 03/11/19 20:05 03/11/19 20:05 03/11/19 20:05 - Notes Notes: PHYSICAL EXAMINATION: GENERAL: Morbidly obese no acute distress. HEAD: Atraumatic, normocephalic. EYES: Pupils equal round and reactive to light, extraocular movements intact, conjunctiva are normal. ENT: Nares patent, oropharynx clear without exudates. Moist mucous membranes. NECK: Normal range of motion, supple without lymphadenopathy LUNGS: Breath sounds clear to auscultation bilaterally and equal. No wheezes rales or rhonchi. HEART: Regular rate and rhythm without murmurs ABDOMEN: Soft, nontender, nondistended abdomen. No guarding, no rebound. No masses appreciated. Female : Normal external genitalia, speculum exam reveals small amount of bleeding from the cervix. No cervical motion or adnexal tenderness. Musculoskeletal: Normal range of motion, no pitting or edema. No cyanosis. NEUROLOGICAL: Cranial nerves grossly intact. Normal speech, normal gait. Normal sensory, motor exams PSYCH: Normal mood, normal affect. SKIN: Warm, Dry, normal turgor, no rashes or lesions noted. Course - Re-evaluation Re-evalutation: Laboratory 03/11/19 03/11/19 22:14 22:14 WBC 10.5 RBC 3.98 Hgb 12.5 Hct 37.2 MCV 94 MCH 31.4 MCHC 33.6 RDW 14.5 H Plt Count 329 Lymph % (Auto) 21.6 Hartley % (Auto) 4.0 Eos % (Auto) 6.0 Baso % (Auto) 0.4 Absolute Neuts (auto) 7.2 Absolute Lymphs (auto) 2.3 Absolute Monos (auto) 0.4 Absolute Eos (auto) 0.6 Absolute Basos (auto) 0.0 Seg Neutrophils % 68.0 Sodium 140.0 Potassium 4.4 Chloride 101 Carbon Dioxide 30 Anion Gap 9 BUN 9 Creatinine 0.69 Est GFR ( Amer) > 60 Est GFR (MDRD) Non-Af > 60 Glucose 91 Calcium 9.6 Total Bilirubin 0.3 Direct Bilirubin 0.1 Neonat Total Bilirubin Not Reportable Neonat Direct Bilirubin Not Reportable Neonat Indirect Bili Not Reportable AST 41 H ALT 53 Alkaline Phosphatase 97 Total Protein 7.9 Albumin 4.2 Transvaginal US 03/11/19 21:24 IMPRESSION: 1. Thickening of the endometrial stripe measures 1.8 cm. Differential diagnosis includes endometrial hyperplasia, and endometrial polyp/neoplasm. Limited exam. [employer] referral advised. 2. Ovaries are not visualized. Physical exam today unremarkable. Patient appears well, nontoxic, abdomen is soft and nontender. Lab work-up unremarkable. Patient declined to provide urine sample despite multiple hours in the emergency department. She has no concern for urinary tract infection has no dysuria or urinary abnormality. Transvaginal ultrasound report as outlined above. Patient will be encouraged to follow-up with [facility]. Patient given ED return precautions, she verbalizes understanding and agreement with same. The patient's emergency department workup and current diagnosis were explained to the patient and or family. Follow-up instructions were provided. Medication s if prescribed were discussed. Instructions for when to return to the emergency department including specific worrisome symptoms were discussed with the patient and/or family. - Vital Signs Vital signs: Temp Pulse Resp BP Pulse Ox 98.4 F 96 18 125/86 H 96 03/12/19 00:47 03/12/19 00:47 03/12/19 00:47 03/12/19 00:47 03/12/19 00:47 - Laboratory Result Diagrams: 03/11/19 22:14 03/11/19 22:14 Laboratory results interpreted by me: 03/11/19 03/11/19 22:14 22:14 RDW 14.5 H AST 41 H Discharge - Discharge Clinical Impression: Dysfunctional uterine bleeding Condition: Stable Disposition: HOME, SELF-CARE Additional Instructions: You were seen today for dysfunctional uterine bleeding. This is when you have vaginal bleeding and abdominal cramping off of your normal menstrual cycle. You need to follow-up with PEAR[facility] HAND or your primary care physician the next 1-3 days. Return immediately if you worsening pain, you began bleeding through more than 2 pads per hour for more than 3 hours, you pass out, have persistent vomiting, develop a fever greater than 100.4F, or any other symptoms that are concerning to you. Referrals: [facility] [Provider Group] - Follow up as needed ESME DELCID MD [EMERITUS] - Follow up as needed ANTHONY RODRIGUEZ MD [EMERITUS] - Follow up as needed
[2019-03-12 00:48] VITALS: BP 125/86
== END 2019-03-12 00:47 | disposition home or self-care (01) ==
LOC: ER 19:48
DX: N93.8 Other specified abnormal uterine and vaginal bleeding (principal); F17.200 Nicotine dependence, unspecified, uncomplicated; E66.01 Morbid (severe) obesity due to excess calories; Z91.040 Latex allergy status; Z90.49 Acquired absence of other specified parts of digestive tract
CPT/HCPCS: 99284; 96374; 96375; 36415; 85025; 80053; 76830; 93976; J2270; J2405